=== PATIENT | male | born 1940 | race Caucasian/White ===

== ENCOUNTER 2019-04-30 15:14 | Outpatient (CLI) | payer MEDICARE, SELFPAY ==
[2019-04-30 15:41] LABS: Basophils Percent Auto 0.7 % (0.2-1.2); Eosinophils Absolute Auto 0.1 K/mm3 (0-0.3); Hematocrit 39.2 % (42.0-52.0); Immature Granulocyte Absolute 0.01 K/mm3 (0.00-0.031); Immature Granulocyte Percent A 0.3 % (0-0.5); Lymphocytes Absolute Auto 0.54 K/mm3 (0.9-3.2); Lymphocytes Percent Auto 17.9 % (18.3-44.2); Mean Corpuscular HGB Conc 35.7 g/dl (32-36); Mean Corpuscular Hemoglobin 32.5 pg (26-34); Mean Platelet Volume 8.2 fl (7.4-10.4); Monocytes Absolute Auto 0.4 K/mm3 (0.1-0.6); Monocytes Percent Auto 12.3 % (2.6-8.5); Neutrophils Percent Auto 65.8 % (45.5-73.1); Platelet Count Result 231 k/mm3 (150-375); Red Blood Count 4.31 M/mm3 (4.6-6.20); Red Cell Distribution Width 11.7 % (11.5-14.5)
[2019-04-30 16:49] LABS: Iron 103 ug/dL (49-181)
[2019-04-30 16:51] LABS: Alanine Aminotransferase 20 U/L (4-50); Albumin Level 4.4 g/dL (3.5-5.1); Alkaline Phosphatase 89 U/L (38-126); Aspartate Amino Transferase 26 U/L (17-59); Bilirubin,Total 0.5 mg/dL (0.2-1.3); Blood Urea Nitrogen 21 mg/dL (9-20); Calcium 9.4 mg/dL (8.4-10.2); Carbon Dioxide 30 mmol/L (22-30); Chloride 90 mmol/L (98-107); Estimated Glomerular Filt Rate > 60; Glucose 103 mg/dL (75-110); Potassium 4.8 mmol/L (3.4-5.0); Sodium 132 mmol/L (137-145)
[2019-04-30 16:59] LABS: Percent Iron Saturation 36 % (20-50)
[2019-04-30 17:57] LABS: Folic Acid 16.6 ng/mL (2.76->20)
[2019-05-04 21:06] LABS: Anti Nuclear Antibody Pattern Nuclear, Speckled
== END 2019-04-30 15:15 | disposition home or self-care (01) ==
PROVIDERS: PCP Internal Medicine; Visit Provider Internal Medicine Hematology & Oncology
DX: D72.819 Decreased white blood cell count, unspecified (principal); D50.9 Iron deficiency anemia, unspecified
CPT/HCPCS: 36415; 80053; 82607; 82728; 82746; 83540; 83550; 85025; 86038; 86039

== ENCOUNTER 2019-10-25 09:39 | Emergency (ER) | payer MEDICARE, SELFPAY ==
--- NOTE | ~2019-10-25 | XR_ITS ---
EXAMINATION: XR ribs RT 2V w CXR 2V DATE: 10/25/2019 11:03 INDICATION: Right posterior rib pain. TECHNIQUE: Frontal and lateral views of the chest and 3 views of the right ribs were obtained. COMPARISON: Chest single view 01/11/2015 FINDINGS: CHEST TWO VIEWS: A calcified left lung nodule is consistent with old granulomatous disease. No pleura l effusion or pneumothorax. The heart size is normal. RIGHT RIBS: There are multiple old healed right rib fractures. No acute rib fracture. IMPRESSION: 1. No acute rib fracture. Reviewed, dictated and finalized at location A. IMPRESSION: 1. No acute rib fracture.
[2019-10-25 10:01] VITALS: BP 205/94; PULSE 56; RESP 18; TEMP 36.6; O2SAT 99
--- NOTE | 2019-10-25 10:40 | ED.FALL ---
HPI - Fall General Chief Complaint: Fall <STAS Reyes Last Filed: 10/25/19 12:03> Stated Complaint: I think I fractured my ribs <STAS Reyes Last Filed: 10/25/19 12:03> Time Seen by Provider: 10/25/19 10:06 <STAS Reyes Last Filed: 10/25/19 12:03> Source: patient <STAS Reyes Last Filed: 10/25/19 12:03> Mode of arrival: ambulatory <STAS Reyes Last Filed: 10/25/19 12:03> Limitations: no limitations <STAS Reyes Last Filed: 10/25/19 12:03> History of Present Illness HPI Narrative: This is a 79-year-old male that presents the emergency department for right-sided rib pain after a fall last night. Reports he tripped over some logs and landed on his right side. Reports since he has been having rib pain. Pain is worse with movement and relieved with rest. Denies hitting his head, loss of consciousness, other injuries, or shortness of breath. <STAS Reyes Last Filed: 10/25/19 12:03> Related Data Home Medications: Home Medications Medication Instructions Recorded Confirmed levothyroxine DAILY 10/25/19 ropinirole mg HS 10/25/19 venlafaxine mg DAILY 10/25/19 <STAS Reyes Last Filed: 10/25/19 12:03> Allergies/Adverse Reactions: Allergies Allergy/AdvReac Type Severity Reaction Status Date / Time No Known Allergies Allergy Verified 10/25/19 11:20 <STAS Reyes Last Filed: 10/25/19 12:03> Review of Systems Review of Systems: Narrative: CONSTITUTIONAL: Denies fever CARDIOVASCULAR: Reports chest pain RESPIRATORY: Denies dyspnea. MUSCULOSKELETAL: Reports back pain and myalgia NEUROLOGIC: Denies numbness, or weakness. <STAS Reyes Last Filed: 10/25/19 12:03> All systems reviewed & are unremarkable except as noted in HPI and below <Ana Mckenzie PA-C - Last Filed: 10/25/19 12:03> PMFSH Past Medical History Medical History: Medical History (Updated 10/25/19 @ 12:03 by Ana Mckenzie PA-C) History of prostate cancer <Ana Mckenzie PA-C - Last Filed: 10/25/19 12:03> Surgical History Surgical History: Surgical History (Updated 10/25/19 @ 10:42 by Ana Mckenzie PA-C) History of tonsillectomy <Ana Mckenzie PA-C - Last Filed: 10/25/19 12:03> Exam Narrative: Exam Narrative: GENERAL: Well-appearing, well-nourished, and in no acute distress. HEAD: Normocephalic, atraumatic. EYES: PERRLA and EOMI. ENT: Nares clear, no rhinorrhea or epistaxis. Mucous membranes moist. Oropharynx without tonsillar hypertrophy exudate or other lesions. Bilateral TMs pearly purdy non-bulging NECK: Supple. No adenopathy or masses. No midline cervical spine tenderness CHEST: Clear to auscultation. No respiratory distress. No wheezes rales or rhonchi. Tender to palpation of the right lateral/posterior chest wall HEART: Regular rate and rhythm. No murmur heard. Normal peripheral pulses. BACK: No midline thoracic or lumbar spine tenderness EXTREMITIES: Normal range of motion. No edema. Strength equal in bilateral upper extremities (5/5) SKIN: Warm, dry, no rash. NEURO: No focal deficits. Alert and oriented x3. Cranial nerves II through XII grossly intact. Normal gait PSYCH: Normal mood and affect <Ana Mckenzie PA-C - Last Filed: 10/25/19 12:03> Course Vital Signs Vital signs: Vital Signs Temperature 97.8 F 10/25/19 10:01 Pulse Rate 56 L 10/25/19 10:01 Respiratory Rate 18 10/25/19 10:01 Blood Pressure 205/94 H 10/25/19 10:01 Pulse Oximetry 99 10/25/19 10:01 Temperature 97.8 F 10/25/19 10:01 Pulse Rate 66 10/25/19 12:30 Respiratory Rate 18 10/25/19 12:30 Blood Pressure 182/95 H 10/25/19 12:30 Pulse Oximetry 98 10/25/19 12:30 <Ana Mckenzie PA-C - Last Filed: 10/25/19 12:03> Vital Signs Temperature 97.8 F 10/25/19 10:01 Pulse Rate 56 L 10/25/19 10:01 Respiratory Rate
[2019-10-25] MEDS: hydrALAZINE HCL 20 MG/ML VIAL 10 MG IM (11:31)
[2019-10-25 11:33] VITALS: BP 170/104; PULSE 52; RESP 20; O2SAT 99
[2019-10-25 12:06] VITALS: BP 193/96; PULSE 64; RESP 18; O2SAT 95
[2019-10-25 12:30] VITALS: BP 182/95; PULSE 66; RESP 18; O2SAT 98
== END 2019-10-25 12:45 | disposition home or self-care (01) ==
PROVIDERS: Emergency Provider General Practice; PCP Internal Medicine
DX: S20.211A Contusion of right front wall of thorax, initial encounter (principal); I10 Essential (primary) hypertension; W18.09XA Striking against other object with subsequent fall, initial encounter; Z85.46 Personal history of malignant neoplasm of prostate
CPT/HCPCS: 71046; 71100; 96372; 99283; A9270; J0360

== ENCOUNTER → 2020-08-17 02:17 | Outpatient (CLI) | payer MEDICARE, SELFPAY ==
[2020-08-17 23:31] LABS: SARS-CoV-2 RNA PCR Negative
== END ==
PROVIDERS: PCP Internal Medicine; Visit Provider Internal Medicine Gastroenterology
DX: Z01.812 Encounter for preprocedural laboratory examination (principal); Z20.822 Contact with and (suspected) exposure to COVID-19
CPT/HCPCS: C9803; U0003; U0005

== ENCOUNTER 2020-08-20 01:53 | Day surgery (SDC) | payer MEDICARE, SELFPAY ==
[2020-08-13 10:21] VITALS: BMI 27.5
[2020-08-20 08:05] VITALS: BP 155/94; PULSE 62; RESP 16; TEMP 36.1; O2SAT 97; BMI 27.3
[2020-08-20] MEDS: LACTATED RINGERS 1,000 ML 150 ML IV CONT (08:16)
--- NOTE | 2020-08-20 08:40 | WPDANESEPPF ---
Anes - Initial Pre Proc Eval Procedure: Operation Date: 08/20/20 09:30 Proposed Procedures p Screening Colonoscopy - Allan Jon MD Date/Time: 08/20/20 08:40 Surgeon: Allan Jon MD Pre Op Diagnosis: neoplasm screening, hx colon polyps Patient Data Age: 80 Gender: M Height: 5 ft 1 in Weight: 65.5 kg Last Vital Signs Temp 96.9 F L 08/20/20 08:05 Pulse 62 08/20/20 08:05 Resp 16 08/20/20 08:05 BP 155/94 H 08/20/20 08:05 Pulse Ox 97 08/20/20 08:05 Allergies Allergy/AdvReac Type Severity Reaction Status Date / Time No Known Allergies Allergy Verified 08/20/20 08:03 Home Medications Medication Instructions Recorded Confirmed Type levothyroxine 25 mcg PO DAILY 10/25/19 08/20/20 History ropinirole 3 mg PO HS 10/25/19 08/20/20 History venlafaxine 37.5 mg PO DAILY 10/25/19 08/20/20 History amlodipine 10 mg PO DAILY 08/13/20 08/20/20 History hydrochlorothiazide 12.5 mg PO DAILY 08/13/20 08/20/20 History pravastatin 40 mg PO HS 08/13/20 08/20/20 History trazodone 100 mg PO HS 08/13/20 08/20/20 History Patient hx anesthesia problems: none Family hx anesthesia problems: none PMFSH Past Medical History Medical History (Updated 08/20/20 @ 08:40 by Tevin Rodriguez MD) History of prostate cancer Hyperlipidemia Hypertension Hypothyroid Surgical History Surgical History (Updated 10/25/19 @ 10:42 by Ana Mckenzie PA-C) History of tonsillectomy Social History Social History Smoking status: Never smoker Alcohol use details: rarely Living arrangements: alone Spiritual care concerns: No Anes - Eval Final PreProcedure Day of Procedure 08/20/20 08:40 Patient weight: normal Heart: regular rate and rhythm Lungs: clear to auscultation Airway: Mallampati scale class II Neurological: alert and oriented Last oral intake: >/= 8 hours ASA classification: III Emergent: no Anesthetic plan: proceed Anesthesia type and monitoring: general GIVS and standard monitoring Informed Consent: The patient's anesthetic plan and its attendant risks and benefits were discussed with the patient/family/POA. Questions were solicited and answers provided to the satisfaction of the patient/family/POA.
--- NOTE | 2020-08-20 08:55 | PM.HPGS ---
History of Present Illness History of Present Illness Consent: Risks, benefits, and alternatives have been discussed and questions answered. Patient agrees to proceed with procedure. Chief complaint: neoplasm screening, hx colon polyps Narrative: Kiran Martines Jr. is a 80 year old male with colon polyp ~ 3 years ago. Review of Systems Constitutional: Constitutional: Denies headache(s) and Denies weakness Eyes: Eyes: Denies blurry vision ENT: Reports Normal hearing present, Denies headache(s) and Denies neck pain Cardiovascular: Cardiovascular: Denies chest pain and Denies dyspnea Respiratory: Respiratory: Denies dyspnea Gastrointestinal: Gastrointestinal: Reports no additional gastrointestinal complaints Genitourinary: Genitourinary: Denies dysuria Musculoskeletal: Musculoskeletal: Denies neck pain Integumentary/Breasts: Skin/Breast: Denies dry skin Neurologic: Reports Normal hearing present, Denies headache(s) and Denies weakness Psychiatric: Psychiatric: Denies anxiety Endocrine: Endocrine: Denies change in body appearance Hematologic/Lymphatic: Hematologic/Lymphatic: Denies easy bleeding Allergic/Immunologic: Allergic/Immunologic: Denies urticaria PMFSH Past Medical History Medical History (Updated 08/20/20 @ 08:55 by Allan Jon MD) Colon polyp History of prostate cancer Hyperlipidemia Hypertension Hypothyroid Surgical History Surgical History (Updated 10/25/19 @ 10:42 by Ana Mckenzie PA-C) History of tonsillectomy Social History Social History Smoking status: Never smoker Alcohol use details: rarely Living arrangements: alone Spiritual care concerns: No Meds Home Medications and Allergies Home Medications Medication Instructions Recorded Confirmed Type levothyroxine 25 mcg PO DAILY 10/25/19 08/20/20 History ropinirole 3 mg PO HS 10/25/19 08/20/20 History venlafaxine 37.5 mg PO DAILY 10/25/19 08/20/20 History amlodipine 10 mg PO DAILY 08/13/20 08/20/20 History hydrochlorothiazide 12.5 mg PO DAILY 08/13/20 08/20/20 History pravastatin 40 mg PO HS 08/13/20 08/20/20 History trazodone 100 mg PO HS 08/13/20 08/20/20 History Allergies Allergy/AdvReac Type Severity Reaction Status Date / Time No Known Allergies Allergy Verified 08/20/20 08:03 Vital Signs Vital Signs - 24 hr 08/20/20 08:05 Temperature 96.9 F L Pulse Rate 62 Respiratory Rate 16 Blood Pressure 155/94 H Pulse Oximetry 97 Exam Const: General: comfortable and no acute distress HENMT: General nose exam: Normal nares present Eyes: General: appearance normal, both eyes and all related structures Neck: Neck: no JVD Resp: Auscultation: clear to auscultation bilaterally Cardio: Rate: regular rate Rhythm: regular rhythm GI: Inspection: non-distended GI Palp: Yes Soft to palpation Skin: General skin exam: normal color Neuro: General: gait normal Speech: normal speech Extrem: General: normal to inspection Psych: Mental Status: mental status grossly normal Assessment and Plan Assessment and plan (1) Colon polyp: Code(s): K63.5 - Polyp of colon Status: Acute Assessment and Plan: colonoscopy
[2020-08-20 09:24] VITALS: BP 107/67; PULSE 66; RESP 28; O2SAT 98
[2020-08-20 09:33] VITALS: BP 98/62; PULSE 52; RESP 28; O2SAT 98
[2020-08-20 09:43] VITALS: BP 133/92; PULSE 61; RESP 21; O2SAT 100
== END 2020-08-20 10:00 | disposition home or self-care (01) ==
PROVIDERS: PCP Internal Medicine; Visit Provider Internal Medicine Gastroenterology
PROC: 0DJD8ZZ Inspection of Lower Intestinal Tract, Via Natural or Artificial Opening Endoscopic (ICD-10-PCS; CPT 45378; principal; 2020-08-20 09:30)
DX: Z12.11 Encounter for screening for malignant neoplasm of colon (principal); Z86.010 Personal history of colon polyps; K57.30 Diverticulosis of large intestine without perforation or abscess without bleeding; K64.8 Other hemorrhoids; D12.3 Benign neoplasm of transverse colon; E78.5 Hyperlipidemia, unspecified; I10 Essential (primary) hypertension; E03.9 Hypothyroidism, unspecified
CPT/HCPCS: 45380; 88305; C9803; J2704; J7120; U0003; U0005

== ENCOUNTER 2021-11-22 10:56 | Outpatient (CLI) | payer MEDICARE, SELFPAY ==
[2021-11-22 11:27] LABS: Basophils Percent Auto 0.6 % (0.2-1.2); Eosinophils Absolute Auto 0.1 K/mm3 (0-0.3); Eosinophils Percent Auto 2.8 % (0-4.4); Hematocrit 45.6 % (42.0-52.0); Hemoglobin 15.5 g/dL (14.0-18.0); Immature Granulocyte Absolute 0.01 K/mm3 (0.00-0.031); Immature Granulocyte Percent A 0.2 % (0-0.5); Lymphocytes Absolute Auto 0.92 K/mm3 (0.9-3.2); Lymphocytes Percent Auto 19.5 % (18.3-44.2); Mean Corpuscular Hemoglobin 32.3 pg (26-34); Monocytes Absolute Auto 0.5 K/mm3 (0.1-0.6); Monocytes Percent Auto 11.3 % (2.6-8.5); Neutrophils Absolute Auto 3.1 K/mm3 (1.3-6.7); Neutrophils Percent Auto 65.6 % (45.5-73.1); Platelet Count Result 257 k/mm3 (150-375); Red Cell Distribution Width 11.9 % (11.5-14.5); White Blood Count 4.7 K/mm3 (4.5-10.0)
[2021-11-22 11:31] LABS: Blood Urea Nitrogen 17 mg/dL (8-26); Carbon Dioxide 29 mmol/L (22-30); Chloride 101 mmol/L (98-109); Estimated Glomerular Filt Rate > 60; Glucose 107 mg/dL (70-105); Ionized Calcium (POC) 1.19 mmol/L (1.11-1.31); Potassium 4.8 mmol/L (3.5-4.9); Sodium 137 mmol/L (138-146)
[2021-11-22 13:23] LABS: Alanine Aminotransferase 30 U/L (6-50); Albumin Level 4.4 g/dL (3.5-5.1); Alkaline Phosphatase 120 U/L (38-126); Anion Gap 9 mmol/L (8-16); Aspartate Amino Transferase 29 U/L (17-59); Bilirubin,Total 0.7 mg/dL (0.2-1.3); Blood Urea Nitrogen 18 mg/dL (9-20); Calcium 9.5 mg/dL (8.4-10.2); Carbon Dioxide 28 mmol/L (22-30); Chloride 100 mmol/L (98-107); Estimated Glomerular Filt Rate > 60; Glucose 109 mg/dL (65-110); Potassium 4.8 mmol/L (3.4-5.0); Sodium 137 mmol/L (137-145)
== END 2021-11-22 10:57 | disposition home or self-care (01) ==
PROVIDERS: PCP Internal Medicine; Visit Provider Internal Medicine Hematology & Oncology
DX: D72.819 Decreased white blood cell count, unspecified (principal)
CPT/HCPCS: 36415; 80047; 80053; 82607; 82746; 85025

== ENCOUNTER 2022-11-20 09:23 | Outpatient (CLI) | payer MEDICARE, SELFPAY ==
[2022-11-20 09:41] LABS: Basophils Percent Auto 0.8 % (0.2-1.2); Eosinophils Absolute Auto 0.2 K/mm3 (0-0.3); Eosinophils Percent Auto 4.1 % (0-4.4); Hematocrit 44.4 % (42.0-52.0); Hemoglobin 15.4 g/dL (14.0-18.0); Lymphocytes Absolute Auto 1.07 K/mm3 (0.9-3.2); Lymphocytes Percent Auto 27.6 % (18.3-44.2); Mean Corpuscular HGB Conc 34.7 g/dl (32-36); Mean Corpuscular Hemoglobin 32.8 pg (26-34); Mean Corpuscular Volume 94.7 fl (80-100); Mean Platelet Volume 8.7 fl (7.4-10.4); Monocytes Absolute Auto 0.4 K/mm3 (0.1-0.6); Neutrophils Absolute Auto 2.3 K/mm3 (1.3-6.7); Neutrophils Percent Auto 58.5 % (45.5-73.1); Platelet Count Result 254 k/mm3 (150-375); Red Blood Count 4.69 M/mm3 (4.6-6.20); White Blood Count 3.9 K/mm3 (4.5-10.0)
[2022-11-20 10:36] LABS: Anion Gap 5 mmol/L (8-16); Blood Urea Nitrogen 14 mg/dL (9-20); Calcium 8.8 mg/dL (8.4-10.2); Carbon Dioxide 30 mmol/L (22-30); Chloride 99 mmol/L (98-107); Estimated Glomerular Filt Rate > 60; Glucose 155 mg/dL (65-110); Potassium 4.5 mmol/L (3.4-5.0); Sodium 134 mmol/L (137-145)
== END 2022-11-20 09:24 | disposition home or self-care (01) ==
PROVIDERS: PCP Internal Medicine; Visit Provider Internal Medicine Hematology & Oncology
DX: D72.819 Decreased white blood cell count, unspecified (principal)
CPT/HCPCS: 36415; 80048; 85025

== ENCOUNTER 2024-04-02 11:54 | Outpatient (CLI) | payer MEDICARE, SELFPAY ==
[2024-04-02 12:20] LABS: Basophils Percent Auto 0.9 % (0.2-1.2); Eosinophils Absolute Auto 0.1 K/mm3 (0-0.3); Eosinophils Percent Auto 1.5 % (0-4.4); Hematocrit 44.9 % (42.0-52.0); Hemoglobin 15.7 g/dL (14.0-18.0); Immature Granulocyte Absolute 0.02 K/mm3 (0.00-0.031); Immature Granulocyte Percent A 0.4 % (0-0.5); Lymphocytes Absolute Auto 0.96 K/mm3 (0.9-3.2); Lymphocytes Percent Auto 20.6 % (18.3-44.2); Mean Corpuscular Hemoglobin 32.6 pg (26-34); Mean Corpuscular Volume 93.2 fl (80-100); Mean Platelet Volume 8.8 fl (7.4-10.4); Monocytes Absolute Auto 0.5 K/mm3 (0.1-0.6); Monocytes Percent Auto 11.1 % (2.6-8.5); Neutrophils Absolute Auto 3.1 K/mm3 (1.3-6.7); Neutrophils Percent Auto 65.5 % (45.5-73.1); Platelet Count Result 249 k/mm3 (150-375); Red Blood Count 4.82 M/mm3 (4.6-6.20); Red Cell Distribution Width 11.7 % (11.5-14.5); White Blood Count 4.7 K/mm3 (4.5-10.0)
[2024-04-02 13:44] LABS: Alanine Aminotransferase 23 U/L (6-50); Albumin Level 4.3 g/dL (3.5-5.1); Alkaline Phosphatase 94 U/L (38-126); Anion Gap 9 mmol/L (4-12); Aspartate Amino Transferase 29 U/L (17-59); Blood Urea Nitrogen 16 mg/dL (9-20); Calcium 9.1 mg/dL (8.4-10.2); Carbon Dioxide 27 mmol/L (22-30); Chloride 98 mmol/L (98-107); Cholesterol 172 mg/dL (0-200); Estimated Glomerular Filt Rate > 60; Glucose 106 mg/dL (65-110); HDL Direct 75 mg/dL; Potassium 4.6 mmol/L (3.4-5.0); Sodium 134 mmol/L (137-145); Triglycerides 123 mg/dL (<150)
[2024-04-02 13:49] LABS: MALB Creatinine Ratio 40.1 mg/g (0-30); Microalbumin Urine Random 30.5 mg/L (0-16.7)
[2024-04-02 13:55] LABS: LDL Cholesterol Direct 70 mg/dL
[2024-04-02 14:00] LABS: Free T4 Free Thyroxine 1.31 ng/dL (0.78-2.19)
[2024-04-02 14:15] LABS: Prostate Specific Antigen 0.1 ng/mL (< OR = 4.0)
[2024-04-02 16:14] LABS: Hemoglobin A1C 5.8 % (<5.7)
[2024-04-02 18:02] LABS: Folic Acid 18.4 ng/mL (2.76->20)
--- OUTSIDE RECORDS SUMMARY | 2024-04-04 00:10 | XMS_ITS | CONTINUITY OF CARE DOCUMENT ---
Author Name polo, polo Address Unknown Organization [facility] Address [address] [place] [address] Phone [phone] Care Team Providers Care Vp Informatics Name Role Phone Elbert MANRIQUE, Sheri Unavailable DANNY YANES MD Unavailable DANNY YANES MD Unavailable PROBLEMS Condition Status Date Provider Notes LEG PAIN active Sheri Boswell MD ABNORMAL ELECTROCARDIOGRAM active Sheri clay MD HTN ESSENTIAL active Sheri Boswell MD ENCOUNTERS Date Type Provider Location Encounter Diag nosis - In-person encounter Office Visit Sheri Boswell MD [facility] HTN ESSENTIALABNORMAL ELECTROCARDIOGRAMLEG PAIN VITAL SIGNS Date Observation Value Provider blood pressure, diastolic 83 mm[Hg] Melchor blood pressure, systolic 141 mm[Hg] Anson Guallpa pulse rate 59 /min Dell Guallpa oxygen saturation, oximetry 95 % Dell Guallpa respiratory rate E&M 16 /min Dell Guallpa weight E&M 154 [lb_av] Dell Guallpa ALLERGIES No Known Drug Allergies HISTORY OF MEDICATION USE Medication Status Instructions Dates Provider Indications Com ments REQUIP 2 MG ORAL TABLET active 1 tab at bedtime Dell Guallpa TAMSULOSIN HCL 0.4 MG ORAL CAPSULE active 1 tab at bedtime Dell Guallpa DONEPEZIL HCL 10 MG ORAL TABLET active 1 tab daily Dell Guallpa GABAPENTIN 300 MG ORAL CAPSULE active 2 tab at bedtime Dell Guallpa SOCIAL HISTORY Date Observation Value Provider social history E&M Marital Statu s: E thnicity: Sheri Boswell MD drug use none Sheri Boswell MD social history reviewed E&M reviewed Sheri Boswell MD physical exercise, f requency, days per week yes [employer] caffeine use, averag e drinks per day yes [employer] alcohol use, average drinks per day social basis only [employer] smoking status Non-smoker [employer] MENTAL STATUS Date Observation Value Provider assessment of judgme nt and insight E&M Alert and oriented to time, place and person. Mood and affect are normal. Sheri Boswell MD INSURANCE PROVIDERS Payer name Policy type / Coverage type [place] [employer] Commercial insurance company [id number] [place] [employer] Medicare [id number] TREATMENT PLAN Date Name Performer new pt.: O rders: E KG ([id number]) BP today: 141/83 Sheri Boswell MD HISTORY OF PROCEDURES Procedure Date Procedure Name Provider Procedure Notes S tatus EKG Sheri Boswell MD completed
--- OUTSIDE RECORDS SUMMARY | 2024-04-04 00:10 | XMS_ITS | Data Portability ---
Author Organization [facility], Main Office Address [address] [place] [address] Care Team Providers Care [employer] Manager Name Role Phone LEE GRAHAM Primary Care Provider [phone] LEE GRAHAM Referring Provider [phone] BRETT NOGUERA Hematology/Oncology [phone] JONATHAN ALARCON Head Machinist [phone] MAYTE Sanforizing Machine Operator RITA BARBER Urologist Assessment Encounter Date Assessment Date Assessment LastModified by Organization Details LastModified Time 02/28/2023 02/28/2023 05/22/2022: Dr Stokes PSA 08/21/2022: Gluc 185 WBC 3.6L 12/04/2022: A1C 5.4 02/21/2023: Gluc 152 TG [email or web address] 02/28/2023 14:05:39 09/05/2023 09/05/2023 05/22/2022: Dr Stokes PSA 08/21/2022: Gluc 185 WBC 3.6L 12/04/2022: A1C 5.4 02/21/2023: Gluc 152 TG 167 08/29/2023: Gluc 110, glob 2.4, TP WNL Lipids/CBC: WNL Not available 09/05/2023 14:10:37 12/05/2023 12/05/2023 05/22/2022: Dr Stokes PSA 08/21/2022: Gluc 185 WBC 3.6L 12/04/2022: A1C 5.4 02/21/2023: Gluc 152 TG 167 08/29/2023: Gluc 110, glob 2.4, TP WNL Lipids/CBC: WNL 11/27/2023: PSA 0.21 Gluc 111, BUN 20 TG 162 WBC 3.9 [email or web address] Not available 12/04/2023 18:55:19 Plan of Treatment Reminders Order Date Submit Date Provider Last Modified By Organization Details Last Modified Time Details Appointments Any 15 2024 10:45A M Lee whitten MD Not available Not available Not available Lab lipid panel, serum 2022 023 [facility], [address] [place], [address], 08/29/2023 15:48:07 CMP, serum or plasma 2022 023 [facility], [address] [place], [address], 08/29/2023 15:48:13 TSH, serum or plasma 2022 023 [facility], [address] [place], [address], 08/29/2023 16:11:53 CBC w/ auto diff 2022 023 [facility], [address] [place], [address], 08/29/2023 13:15:44 T4, free, serum 2022 023 [facility], [address] [place], [address], 08/29/2023 16:01:18 microalbu min, urine 2023 024 [facility], [address] [place], [address], 09/11/2023 20:13:50 glycohemo globin, total, blood 2023 024 [facility], [address] [place], [address], 09/11/2023 21:26:15 PSA, serum or plasma [address], [address] [place], [address], 03/13/2024 08:58:08 lipid panel, serum 2023 024 [facility], [address] [place], [address], 11/27/2023 14:31:52 CMP, serum or plasma 2023 024 [facility], [address] [place], [address], 11/27/2023 14:32:04 TSH, serum or plasma 2023 024 [facility], [address] [place], [address], 11/28/2023 12:30:06 CBC w/ auto diff 2023 024 [facility], [address] [place], [address], 11/27/2023 13:19:36 T4, free, serum 2023 024 [facility], [address] [place], [address], 11/27/2023 14:52:18 lipid panel, serum [address], [address] [place], [address], 12/05/2023 14:37:20 CMP, serum or plasma [address], [address] [place], [address], 12/05/2023 14:37:20 TSH, serum or plasma 2023 024 [email or web address] [facility], [address] [place], [address], 12/05/2023 14:37:20 CBC w/ auto diff 2023 024 [facility], [address] [place], [address], 04/02/2024 16:03:45 T4, free, serum 2023 024 [email or web address] [facility], [address] [place], [address], 12/05/2023 14:37:21 microalbu min, urine 2023 024 [email or web address] [facility], [address] [place], [address], 01/02/2024 08:23:14 glycohemo globin, total, blood 2023 024 [facility], [address] [place], [address], 04/02/2024 23:34:43 Referral hematolog ist referral 2022 023 [email or web address] Brett Noguera, [address], [place], [address], 08/27/2023 08:12:18 podiatris t referral 2023 024 [email or web address] Da FORDEM, [address] [facility], [address], [place], [address], 10/08/2023 16:16:48 urologist referral 2023 024 VALERY Barber, [address] [facility], [facility] [address], [place], [address], 10/05/2023 17:18:41 hematolog ist referral 2023 024 Brett Ngouera, [address], [place], [address], 03/10/2024 16:21:54 podiatris t referral 2023 024 [email or web address] Da Gonzalez DPM, [address] [facility], [address], [place], [address], 01/02/2024 08:23:46 urologist referral 2023 024 [email or web address] Rita Barber, [address] [facility], [facility] [address], [place], [address], 01/02/2024 08:23:46 hematolog ist referral 2023 024 [email or web address] Brett Noguera, [address], [place], [address], 12/05/2023 14:42:56 Procedures upper endoscopy procedure (EGD) (PROC) 2023 024 [email or web address] Sunny Silverio MD, [address] [facility] [address], [address], [place], [address], 01/02/2024 08:44:14 Surgeries None recorded. Imaging None recorded. Medication Orders omeprazol e 20 mg capsule,d elayed release 2023 024 [facility] [address] [place], [address], 12/05/2023 14:36:49 Patient TargetsNo targets recorded. Patient Instructions Encounter Date Encounter Id Patient Instructions Last Modified By Organization Details Last Modified Time 09/05/2023 [id number] diabetic eye exam* [email or web address] Not avail able 03/06/2024 10:14:53 Personalized a [facility] Plan and Screening Recommendations Advance Directives - Do you have one? Advance Directives - Do we have your advance directive on file in your health record? Primary Prevention/Interven tion (prevents or decreases the chance of common diseases from occurring) Smoking Risk: Alcohol Misuse Screening: Weight: Physical activity: Nutrition: Fall Risk (screened today): Vaccines Pneumococcal: Influenza: Chronic Disease Risks Stroke: I have no recommendations Active diagnosis, Continue current treatment plan Heart Attack: I have no recommendations Act alma diagnosis, Continue current treatment plan Clogging of the Arteries: I have no recommendations Act alma diagnosis, Continue current treatment plan Diabetes: Secondary Prevention/Interven tion (detects treatable diseases before they may cause symptoms, disability, or ) Prostate Cancer Screening: Colon Cancer Screening: Date Screening Last Performed: Eye Disease Screening: Dementia Risk: Depression Screening: [email or web address] Not available 09/04/2023 10:08:06 10/05/2023 [id number] plan 1. I told him he could try soy tablets for his hot flashes but I did offer him low-dose testosterone replacement but he was not interested in doing injections 2. I will see him back in 6 months just for another PSA and we will follow him maybe another 1 or 2 years if everything stays normal he probably does not need much follow up after that but maybe once a year [email or web address] Not available 10/05/2023 16:49:02 12/05/2023 [id number] dementia rating scale-2* [email or web address] Not available 12/05/2023 14:36:42 alcohol misuse* [email or web address] Not available 12/05/2023 14:36:42 depression screening* [email or web address] Not available 12/05/2023 14:36:42 Timed Up and Go test (TUG)* [email or web address] Not available 12/05/2023 14:36:41 multi-dimensiona l health assessment questionnaire* [email or web address] Not available 12/05/2023 14:36:42 advance care planning: care instructions [email or web address] Not available 12/05/2023 14:36:41 advance directiv es: care instructions [email or web address] Not available 12/05/2023 14:36:41 [place] Advance Directives [email or web address] Not available 12/05/2023 14:36:42 diabetic eye exam* [email or web address] Not availa ble 12/05/2023 14:37:34 Personalized Hea lth Plan and Screening Recommendations Advance Directives - Do you have one? You have indicated that you are capable of preparing your advance care directive Advance Directives - Do we have your advance directive on file in your health record? Primary Prevention/Interven tion (prevents or decreases the chance of common diseases from occurring) Smoking Risk: Non Smoker Alcohol Misuse Screening: Negative Weight: Appropriate Overwei ght continue your current weight loss efforts try to lose 5% of your body weight try to lose 10% of your body weight Physical activity: Nutrition: Good Average Refer to attached handout Heart-Healthy Diet: After Your Visit Fall Risk (screened today): Low Intermediate Refer to attached handout Preventing Falls: After your Visit Vaccines Pneumococcal: Ordered Recommended today Recommended today, but you have declined No further needed Influenza: Chronic Disease Risks Stroke: Low Risk Intermediate Risk Heart Attack: Low risk Intermediate Risk Clogging of the Arteries: Low risk Intermediate Risk Diabetes: Low Risk I have no recommendations Secondary Prevention/Interven tion (detects treatable diseases before they may cause symptoms, disability, or ) Prostate Cancer Screening: Colon Cancer Screening: Date Screening Last Performed:2020 Eye Disease Screening: Ordered Recommended today Dementia Risk: Low Intermediate I have no recommendations Depression Screening: Negative Not available 12/05/2023 14:40:49 Reason for Referral Referring Physician: Lee Graham [facility], Encounter Date: 02/28/2023 Referring Physician: Lee Graham [facility], Encounter Date: 09/05/2023 Urologist Referral for Prost ate specific antigen above reference range Referring Physician: Lee Graham [facility], Encounter Date: 09/05/2023 Head Machinist Referral for Hype rglycemia Referring Physician: Lee Graham [facility], Encounter Date: 09/05/2023 Referring Physician: Lee Graham [facility], Encounter Date: 12/05/2023 Urologist Referral for Prost ate specific antigen above reference range Referring Physician: Lee Graham [facility], Encounter Date: 12/05/2023 Head Machinist Referral for Hype rglycemia Referring Physician: Lee Graham, Internal Medicine, Encounter Date: 12/05/2023 Results Created Date Observation Date Name Description Value Unit Range Abnormal Flag Note LastModifiedBy Organization Detail LastModifiedTime 02/22/2002/21/2023 CBC/C OMPLE TE BLD COUNT W/DIF F white blood cells 4.5 x10'3 /uL 4.2-10 .8 Not Available [facility] (Lab) [address] [place], [address], 02/21/2023 13:01:16 02/22/2002/21/2023 CBC/C OMPLE TE BLD COUNT W/DIF F red blood cells 4.85 x10'6 /uL 4.10-5 .80 Not Available [facility] (Lab) [address] [place], [address], 02/21/2023 13:01:16 02/22/2002/21/2023 CBC/C OMPLE TE BLD COUNT W/DIF F hemoglobin 16.2 g/dL 13.2-1 7.0 Not Available [facility] (Lab) [address] [place], [address], 02/21/2023 13:01:16 02/22/2002/21/2023 CBC/C OMPLE TE BLD COUNT W/DIF F hematocrit 46.7 % 39.3-5 0.0 Not Available [facility] (Lab) [address] [place], [address], 02/21/2023 13:01:16 02/22/2002/21/2023 CBC/C OMPLE TE BLD COUNT W/DIF F mean red cell volume 96.3 fL 80.0-9 7.0 Not Available [facility] (Lab) [address] [place], [address], 02/21/2023 13:01:16 02/22/20 02/21/2023 CBC/C OMPLE TE BLD COUNT W/DIF F mean red cell hemoglobin 33.4 pg 27.0-3 3.0 high Not Available [facility] (Lab) [address] [place], [address], 02/21/2023 13:01:16 02/22/20 23 02/21/2023 CBC/C OMPLE TE BLD COUNT W/DIF F mean RBC HGB concentratio n 34.7 g/dL 31.0-3 6.0 Not Available [facility] (Lab) [address] [place], [address], 02/21/2023 13:01:16 02/22/2002/21/2023 CBC/C OMPLE TE BLD COUNT W/DIF F red cell distribution width 12.1 % 11.8-1 5.5 Not Available [facility] (Lab) [address] [place], [address], 02/21/2023 13:01:16 02/22/20 23 02/21/2023 CBC/C OMPLE TE BLD COUNT W/DIF F platelets 252 x10'3 /uL 150-40 0 Not Available [facility] (Lab) [address] [place], [address], 02/21/2023 13:01:16 02/22/20 23 02/21/2023 CBC/C OMPLE TE BLD COUNT W/DIF F mean platelet volume 9.8 fL 9.0-12 .4 Not Available [facility] (Lab) [address] [place], [address], 02/21/2023 13:01:16 02/22/20 23 02/21/2023 CBC/C OMPLE TE BLD COUNT W/DIF F neutrophils 56.7 % 39.0-7 2.0 Not Available [facility] (Lab) [address] [place], [address], 02/21/2023 13:01:16 02/22/20 23 02/21/2023 CBC/C OMPLE TE BLD COUNT W/DIF F lymphocytes 29.8 % 16.0-4 7.0 Not Available [facility] (Lab) [address] [place], [address], 02/21/2023 13:01:16 02/22/2002/21/2023 CBC/C OMPLE TE BLD COUNT W/DIF F monocytes 9.2 % 5.0-12 .0 Not Available [facility] (Lab) [address] [place], [address], 02/21/2023 13:01:16 02/22/2002/21/2023 CBC/C OMPLE TE BLD COUNT W/DIF F eosinophils 3.4 % 1.0-7. 0 Not Available [facility] (Lab) [address] [place], [address], 02/21/2023 13:01:16 02/22/2002/21/2023 CBC/C OMPLE TE BLD COUNT W/DIF F basophils 0.7 % 0.0-2. 0 Not Available [facility] (Lab) [address] [place], [address], 02/21/2023 13:01:16 02/22/2002/21/2023 CBC/C OMPLE TE BLD COUNT W/DIF F immature granulocytes 0.2 % 0.00-0 .50 Not Available [facility] (Lab) [address] [place], [address], 02/21/2023 13:01:16 02/22/2002/21/2023 CBC/C OMPLE TE BLD COUNT W/DIF F neutrophils, absolute count 2.53 x10'3 /uL 1.5-8. 0 Not Available [facility] (Lab) [address] [place] [address], [address], 02/21/2023 13:01:16 02/22/20 23 02/21/2023 CBC/C OMPLE TE BLD COUNT W/DIF F lymphocytes, absolute count 1.33 x10'3 /uL 1.07-3 .43 Not Available [facility] (Lab) [address] [place], [address], 02/21/2023 13:01:16 02/22/2002/21/2023 CBC/C OMPLE TE BLD COUNT W/DIF F monocytes, absolute count 0.41 x10'3 /uL 0.29-0 .99 Not Available [facility] (Lab) [address] [place], [address], 02/21/2023 13:01:16 02/22/2002/21/2023 CBC/C OMPLE TE BLD COUNT W/DIF F eosinophils, absolute count 0.15 x10'3 /uL 0.02-0 .53 Not Available [facility] (Lab) [address] [place], [address], 02/21/2023 13:01:16 02/22/2002/21/2023 CBC/C OMPLE TE BLD COUNT W/DIF F basophils, absolute count 0.03 x10'3 /uL 0.01-0 .08 Not Available [facility] (Lab) [address] [place], [address], 02/21/2023 13:01:16 02/22/2002/21/2023 CBC/C OMPLE TE BLD COUNT W/DIF F immature granulocytes ,absolute 0.01 x10'3 /uL 0.00-0 .05 Not Available [facility] (Lab) [address] [place], [address], 02/21/2023 13:01:16 02/22/20 23 02/21/2023 CBC/C OMPLE TE BLD COUNT W/DIF F nucleated red blood cells 0.0 % -0 Not Available [facility] (Lab) [address] [place], [address], 02/21/2023 13:01:16 02/22/2002/21/2023 CBC/C OMPLE TE BLD COUNT W/DIF F NRBC# 0.00 x10'3 /uL Not Available [facility] (Lab) [address] [place], [address], 02/21/2023 13:01:16 02/22/2002/21/2023 LIPID PANEL cholesterol 160 mg/dL 140-19 9 NIH BISMARK NSUS RECOM MENDA TION FOR STANFORD STERO L: ADULT CHILD LOW RISK: <200 <170 BORDE RLINE : <200- 239 ----- HIGH RISK: >240 >200 Not Available [facility] (Lab) [address] [place], [address], 02/21/2023 13:19:04 02/22/2002/21/2023 LIPID PANEL triglyceride s 167 mg/dL 0-150 high NIH BISMARK NSUS REPOR T RECOM MENDA TION FOR TRIGL YCERI PELON: ADULT CHILD LOW RISK: <150 ----- BODER LINE: 150-1 99 ----- HIGH RISK: >200 ----- Not Available [facility] (Lab) [address] [place], [address], 02/21/2023 13:19:04 02/22/2002/21/2023 LIPID PANEL HDL cholesterol 74 mg/dL 40- Not Available [facility] (Lab) [address] [place], [address], 02/21/2023 13:19:04 02/22/2002/21/2023 LIPID PANEL LDL cholesterol, calculated 53 mg/dL 0-130 NIH BISMARK NSUS REPOR T RECOM MENDA TIONS FOR LDL: ADULT CHILD LOW RISK <130 <110 (OPTI MAL LDL) <100 ----- BORDE RLINE : 130-1 59 ----- HIGH RISK: >160 >130 A TRIGL YCERI DE RESUL T >400 INVAL IDATE S THE CALCU LATIO N FOR LDL FRACT IONAT ION - THE LDL RESUL T WILL NOT BE REPOR TAISHA. Not Available [facility] (Lab) [address] [place], [address], 02/21/2023 13:19:04 02/22/2002/21/2023 COMPR EHENS ALMA METAB OLIC PANEL sodium 138 mmol/ L 137-14 5 Not Available [facility] (Lab) [address] [place], [address], 02/21/2023 13:19:09 02/22/2002/21/2023 COMPR EHENS ALMA METAB OLIC PANEL potassium 4.4 mmol/ L 3.5-5. 1 Not Available [facility] (Lab) [address] [place], [address], 02/21/2023 13:19:09 02/22/2002/21/2023 COMPR EHENS ALMA METAB OLIC PANEL chloride 101 mmol/ L 98-107 Not Available [facility] (Lab) [address] [place], [address], 02/21/2023 13:19:09 02/22/2002/21/2023 COMPR EHENS ALMA METAB OLIC PANEL carbon dioxide 30 mmol/ L 22-30 Not Available [facility] (Lab) [address] [place], [address], 02/21/2023 13:19:09 02/22/2002/21/2023 COMPR EHENS ALMA METAB OLIC PANEL anion gap 11.4 mmol/ L 14-22 low Not Available [facility] (Lab) [address] [place], [address], 02/21/2023 13:19:09 02/22/2002/21/2023 COMPR EHENS ALMA METAB OLIC PANEL glucose 152 mg/dL 70-99 high Not Available [facility] (Lab) [address] [place], [address], 02/21/2023 13:19:09 02/22/20 23 02/21/2023 COMPR EHENS ALMA METAB OLIC PANEL BUN 14 mg/dL 8-19 Not Available [facility] (Lab) [address] [place], [address], 02/21/2023 13:19:09 02/22/20 23 02/21/2023 COMPR EHENS ALMA METAB OLIC PANEL creatinine 0.87 mg/dL 0.66-1 .25 Not Available [facility] (Lab) [address] [place], [address], 02/21/2023 13:19:09 02/22/2002/21/2023 COMPR EHENS ALMA METAB OLIC PANEL GFR >60 Refer ence Range : [place] ge GFR Healt hy Adult : >60 mL/mi n/1.7 3 m2 Chron ic Kidne y Disea se: 15-60 mL/mi n/1.7 3 m2 Kidne y Failu re: <15/m L/min /1.73 m2 www.n iddk. nih.g ov The MDRD study equat ion has not been valid ated in child rose <18 years of age; pregn ant women ; the elder ly >85 years of age; or in some racia l or ethni c subgr oups, such as [facility] nics. Outsi de the valid ated lynne eters , estim ated GFR is less accur ate, requi ring clini cindy judgm ent on a case- by-ca se basis . Clini cindy inter preta tion for other races and ages must be made by the clini polo. The MDRD study equat ion has not been valid ated for the evalu ation of serum creat inine relat ed to nutri aashish l statu s or medic ation usage . For perso ns <18 years of age, a pedia tric GFR calcu lator is avail able on the F websi te: https ://rojas foster.shantell gregg/pr ofess ional s/kdo qi/gf r_cal culat or Not Available [facility] (Lab) [address] [place], [address], 02/21/2023 13:19:09 02/22/20 23 02/21/2023 COMPR EHENS ALMA METAB OLIC PANEL alkaline phosphatase 88 U/L 38-126 Not Available [facility] (Lab) [address] [place], [address], 02/21/2023 13:19:09 02/22/2002/21/2023 COMPR EHENS ALMA METAB OLIC PANEL alanine aminotransfe rase 24 U/L 0-50 Not Available [facility] (Lab) [address] [place], [address], 02/21/2023 13:19:09 02/22/20 23 02/21/2023 COMPR EHENS ALMA METAB OLIC PANEL aspartate aminotransfe rase 28 U/L 15-46 Not Available [facility] (Lab) [address] [place], [address], 02/21/2023 13:19:09 02/22/2002/21/2023 COMPR EHENS ALMA METAB OLIC PANEL bilirubin, total 0.80 mg/dL 0.20-1 .30 Not Available [facility] (Lab) [address] [place], [address], 02/21/2023 13:19:09 02/22/2002/21/2023 COMPR EHENS ALMA METAB OLIC PANEL calcium 9.5 mg/dL 8.4-10 .2 Not Available [facility] (Lab) [address] [place], [address], 02/21/2023 13:19:09 02/22/20 23 02/21/2023 COMPR EHENS ALMA METAB OLIC PANEL total protein 6.7 g/dL 6.3-8. 2 Not Available [facility] (Lab) [address] [place], [address], 02/21/2023 13:19:09 02/22/20 23 02/21/2023 COMPR EHENS ALMA METAB OLIC PANEL albumin 4.1 g/dL 3.0-4. 4 Not Available [facility] (Lab) [address] [place], [address], 02/21/2023 13:19:09 02/22/20 23 02/21/2023 COMPR EHENS ALMA METAB OLIC PANEL globulin 2.6 g/dL 2.6-4. 2 Not Available [facility] (Lab) [address] [place], [address], 02/21/2023 13:19:09 02/22/2002/21/2023 COMPR EHENS ALMA METAB OLIC PANEL A/G ratio 1.6 ratio 1.0-2. 0 Not Available [facility] (Lab) [address] [place], [address], 02/21/2023 13:19:09 02/22/20 23 02/21/2023 T4 FREE free T4 1.29 NG/dL 0.78-2 .19 Not Available [facility] (Lab) [address] [place], [address], 02/21/2023 14:19:36 02/22/2002/21/2023 TSH thyroid-stim ulating hormone 0.969 uIU/m L 0.465- 4.680 Not Available [facility] (Lab) [address] [place], [address], 02/21/2023 14:21:56 08/29/19 24 08/29/2023 CBC/C OMPLE TE BLD COUNT W/DIF F white blood cells 4.5 x10'3 /uL 4.2-10 .8 Not Available [facility] (Lab) [address] [place], [address], 08/29/2023 13:15:44 08/29/19 24 08/29/2023 CBC/C OMPLE TE BLD COUNT W/DIF F red blood cells 4.93 x10'6 /uL 4.10-5 .80 Not Available [facility] (Lab) [address] [place], [address], 08/29/2023 13:15:44 08/29/19 24 08/29/2023 CBC/C OMPLE TE BLD COUNT W/DIF F hemoglobin 16.3 g/dL 13.2-1 7.0 Not Available [facility] (Lab) [address] [place], [address], 08/29/2023 13:15:44 08/29/19 24 08/29/2023 CBC/C OMPLE TE BLD COUNT W/DIF F hematocrit 46.4 % 39.3-5 0.0 Not Available [facility] (Lab) [address] [place], [address], 08/29/2023 13:15:44 08/29/19 24 08/29/2023 CBC/C OMPLE TE BLD COUNT W/DIF F mean red cell volume 94.1 fL 80.0-9 7.0 Not Available [facility] (Lab) [address] [place], [address], 08/29/2023 13:15:44 08/29/19 24 08/29/2023 CBC/C OMPLE TE BLD COUNT W/DIF F mean red cell hemoglobin 33.1 pg 27.0-3 3.0 high Not Available [facility] (Lab) [address] [place], [address], 08/29/2023 13:15:44 08/29/19 24 08/29/2023 CBC/C OMPLE TE BLD COUNT W/DIF F mean RBC HGB concentratio n 35.1 g/dL 31.0-3 6.0 Not Available [facility] (Lab) [address] [place], [address], 08/29/2023 13:15:44 08/29/19 24 08/29/2023 CBC/C OMPLE TE BLD COUNT W/DIF F red cell distribution width 12.3 % 11.8-1 5.5 Not Available [facility] (Lab) [address] [place], [address], 08/29/2023 13:15:44 08/29/19 24 08/29/2023 CBC/C OMPLE TE BLD COUNT W/DIF F platelets 239 x10'3 /uL 150-40 0 Not Available [facility] (Lab) [address] [place], [address], 08/29/2023 13:15:44 08/29/19 24 08/29/2023 CBC/C OMPLE TE BLD COUNT W/DIF F mean platelet volume 9.9 fL 9.0-12 .4 Not Available [facility] (Lab) [address] [place], [address], 08/29/2023 13:15:44 08/29/19 24 08/29/2023 CBC/C OMPLE TE BLD COUNT W/DIF F neutrophils 65.1 % 39.0-7 2.0 Not Available [facility] (Lab) [address] [place], [address], 08/29/2023 13:15:44 08/29/19 24 08/29/2023 CBC/C OMPLE TE BLD COUNT W/DIF F lymphocytes 22.9 % 16.0-4 7.0 Not Available [facility] (Lab) [address] [place], [address], 08/29/2023 13:15:44 08/29/19 24 08/29/2023 CBC/C OMPLE TE BLD COUNT W/DIF F monocytes 8.0 % 5.0-12 .0 Not Available [facility] (Lab) [address] [place], [address], 08/29/2023 13:15:44 08/29/19 24 08/29/2023 CBC/C OMPLE TE BLD COUNT W/DIF F eosinophils 3.1 % 1.0-7. 0 Not Available [facility] (Lab) [address] [place], [address], 08/29/2023 13:15:44 08/29/19 24 08/29/2023 CBC/C OMPLE TE BLD COUNT W/DIF F basophils 0.7 % 0.0-2. 0 Not Available [facility] (Lab) [address] [place], [address], 08/29/2023 13:15:44 08/29/19 24 08/29/2023 CBC/C OMPLE TE BLD COUNT W/DIF F immature granulocytes 0.2 % 0.00-0 .50 Not Available [facility] (Lab) [address] [place], [address], 08/29/2023 13:15:44 08/29/19 24 08/29/2023 CBC/C OMPLE TE BLD COUNT W/DIF F neutrophils, absolute count 2.92 x10'3 /uL 1.5-8. 0 Not Available [facility] (Lab) [address] [place], [address], 08/29/2023 13:15:44 08/29/19 24 08/29/2023 CBC/C OMPLE TE BLD COUNT W/DIF F lymphocytes, absolute count 1.03 x10'3 /uL 1.07-3 .43 low Not Available [facility] (Lab) [address] [place], [address], 08/29/2023 13:15:44 08/29/19 24 08/29/2023 CBC/C OMPLE TE BLD COUNT W/DIF F monocytes, absolute count 0.36 x10'3 /uL 0.29-0 .99 Not Available [facility] (Lab) [address] [place], [address], 08/29/2023 13:15:44 08/29/19 24 08/29/2023 CBC/C OMPLE TE BLD COUNT W/DIF F eosinophils, absolute count 0.14 x10'3 /uL 0.02-0 .53 Not Available [facility] (Lab) [address] [place], [address], 08/29/2023 13:15:44 08/29/19 24 08/29/2023 CBC/C OMPLE TE BLD COUNT W/DIF F basophils, absolute count 0.03 x10'3 /uL 0.01-0 .08 Not Available [facility] (Lab) [address] [place], [address], 08/29/2023 13:15:44 08/29/19 24 08/29/2023 CBC/C OMPLE TE BLD COUNT W/DIF F immature granulocytes ,absolute 0.01 x10'3 /uL 0.00-0 .05 Not Available [facility] (Lab) [address] [place], [address], 08/29/2023 13:15:44 08/29/19 24 08/29/2023 CBC/C OMPLE TE BLD COUNT W/DIF F nucleated red blood cells 0.0 % -0 Not Available [facility] (Lab) [address] [place], [address], 08/29/2023 13:15:44 08/29/19 24 08/29/2023 CBC/C OMPLE TE BLD COUNT W/DIF F NRBC# 0.00 x10'3 /uL Not Available [facility] (Lab) [address] [place], [address], 08/29/2023 13:15:44 08/29/19 24 08/29/2023 LIPID PANEL cholesterol 172 mg/dL 140-19 9 NIH BISMARK NSUS RECOM MENDA TION FOR STANFORD STERO L: ADULT CHILD LOW RISK: <200 <170 BORDE RLINE : <200- 239 ----- HIGH RISK: >240 >200 Not Available [facility] (Lab) [address] [place], [address], 08/29/2023 15:48:07 08/29/19 24 08/29/2023 LIPID PANEL triglyceride s 117 mg/dL 0-150 NIH BISMARK NSUS REPOR T RECOM MENDA TION FOR TRIGL YCERI PELON: ADULT CHILD LOW RISK: <150 ----- BODER LINE: 150-1 99 ----- HIGH RISK: >200 ----- Not Available [facility] (Lab) [address] [place], [address], 08/29/2023 15:48:07 08/29/19 24 08/29/2023 LIPID PANEL HDL cholesterol 75 mg/dL 40- Not Available [facility] (Lab) [address] [place], [address], 08/29/2023 15:48:07 08/29/19 24 08/29/2023 LIPID PANEL LDL cholesterol, calculated 74 mg/dL 0-130 NIH BISMARK NSUS REPOR T RECOM MENDA TIONS FOR LDL: ADULT CHILD LOW RISK <130 <110 (OPTI MAL LDL) <100 ----- BORDE RLINE : 130-1 59 ----- HIGH RISK: >160 >130 A TRIGL YCERI DE RESUL T >400 INVAL IDATE S THE CALCU LATIO N FOR LDL FRACT IONAT ION - THE LDL RESUL T WILL NOT BE REPOR TAISHA. Not Available [facility] (Lab) [address] [place], [address], 08/29/2023 15:48:07 08/29/19 24 08/29/2023 COMPR EHENS ALMA METAB OLIC PANEL sodium 134 mmol/ L 137-14 5 low Not Available [facility] (Lab) [address] [place], [address], 08/29/2023 15:48:13 08/29/19 24 08/29/2023 COMPR EHENS ALMA METAB OLIC PANEL potassium 4.5 mmol/ L 3.5-5. 1 Not Available [facility] (Lab) [address] [place], [address], 08/29/2023 15:48:13 08/29/19 24 08/29/2023 COMPR EHENS AMLA METAB OLIC PANEL chloride 105 mmol/ L 98-107 Not Available [facility] (Lab) [address] [place], [address], 08/29/2023 15:48:13 08/29/19 24 08/29/2023 COMPR EHENS ALMA METAB OLIC PANEL carbon dioxide 26 mmol/ L 22-30 Not Available [facility] (Lab) [address] [place], [address], 08/29/2023 15:48:13 08/29/19 24 08/29/2023 COMPR EHENS ALMA METAB OLIC PANEL anion gap 7.5 mmol/ L 14-22 low Not Available [facility] (Lab) [address] [place], [address], 08/29/2023 15:48:13 08/29/19 24 08/29/2023 COMPR EHENS ALMA METAB OLIC PANEL glucose 110 mg/dL 70-99 high Not Available [facility] (Lab) [address] [place], [address], 08/29/2023 15:48:13 08/29/19 24 08/29/2023 COMPR EHENS ALMA METAB OLIC PANEL BUN 17 mg/dL 8-19 Not Available [facility] (Lab) [address] [place], [address], 08/29/2023 15:48:13 08/29/19 24 08/29/2023 COMPR EHENS ALMA METAB OLIC PANEL creatinine 0.90 mg/dL 0.66-1 .25 Not Available [facility] (Lab) [address] [place], [address], 08/29/2023 15:48:13 08/29/19 24 08/29/2023 COMPR EHENS ALMA METAB OLIC PANEL GFR >60 Refer ence Range : [place] ge GFR Healt hy Adult : >60 mL/mi n/1.7 3 m2 Chron ic Kidne y Disea se: 15-60 mL/mi n/1.7 3 m2 Kidne y Failu re: <15/m L/min /1.73 m2 www.n iddk. nih.g ov The MDRD study equat ion has not been valid ated in child rose <18 years of age; pregn ant women ; the elder ly >85 years of age; or in some racia l or ethni c subgr oups, such as Hispa nics. Outsi de the valid ated lynne eters , estim ated GFR is less accur ate, requi ring clini cindy judgm ent on a case- by-ca se basis . Clini cindy inter preta tion for other races and ages must be made by the clini polo. The MDRD study equat ion has not been valid ated for the evalu ation of serum creat inine relat ed to nutri aashish l statu s or medic ation usage . For perso ns <18 years of age, a pedia tric GFR calcu lator is avail able on the F websi te: https ://rojas w.kid cristian.o rg/pr ofess ional s/kdo qi/gf r_cal culat or Not Available [facility] (Lab) [address] [place], [address], 08/29/2023 15:48:13 08/29/19 24 08/29/2023 COMPR EHENS ALMA METAB OLIC PANEL alkaline phosphatase 95 U/L 38-126 Not Available [facility] (Lab) [address] [place], [address], 08/29/2023 15:48:13 08/29/19 24 08/29/2023 COMPR EHENS ALMA METAB OLIC PANEL alanine aminotransfe rase 31 U/L 0-50 Not Available [facility] (Lab) [address] [place], [address], 08/29/2023 15:48:13 08/29/19 24 08/29/2023 COMPR EHENS ALMA METAB OLIC PANEL aspartate aminotransfe rase 34 U/L 15-46 Not Available [facility] (Lab) [address] [place], [address], 08/29/2023 15:48:13 08/29/19 24 08/29/2023 COMPR EHENS ALMA METAB OLIC PANEL bilirubin, total 1.10 mg/dL 0.20-1 .30 Not Available [facility] (Lab) [address] [place], [address], 08/29/2023 15:48:13 08/29/19 24 08/29/2023 COMPR EHENS ALMA METAB OLIC PANEL calcium 9.1 mg/dL 8.4-10 .2 Not Available [facility] (Lab) [address] [place], [address], 08/29/2023 15:48:13 08/29/19 24 08/29/2023 COMPR EHENS ALMA METAB OLIC PANEL total protein 6.7 g/dL 6.3-8. 2 Not Available [facility] (Lab) [address] [place], [address], 08/29/2023 15:48:13 08/29/19 24 08/29/2023 COMPR EHENS ALMA METAB OLIC PANEL albumin 4.3 g/dL 3.0-4. 4 Not Available [facility] (Lab) [address] [place], [address], 08/29/2023 15:48:13 08/29/19 24 08/29/2023 COMPR EHENS ALMA METAB OLIC PANEL globulin 2.4 g/dL 2.6-4. 2 low Not Available [facility] (Lab) [address] [place], [address], 08/29/2023 15:48:13 08/29/19 24 08/29/2023 COMPR EHENS ALMA METAB OLIC PANEL A/G ratio 1.8 ratio 1.0-2. 0 Not Available [facility] (Lab) [address] [place], [address], 08/29/2023 15:48:13 08/29/19 24 08/29/2023 T4 FREE free T4 1.26 NG/dL 0.78-2 .19 Not Available [facility] (Lab) [address] [place], [address], 08/29/2023 16:01:18 08/29/19 24 08/29/2023 TSH thyroid-stim ulating hormone 0.835 uIU/m L 0.465- 4.680 Not Available [facility] (Lab) [address] [place], [address], 08/29/2023 16:11:53 09/11/19 24 09/11/2023 MICRO ALBUM IN RANDO M URINE microalbumin , urine 32.3 mg/L 0.0-16 .6 high Not Available [facility] (Lab) [address] [place], [address], 09/11/2023 20:13:50 09/11/19 24 09/11/2023 HEMOG LOBIN A1C HA1C 5.5 % 4.0-6. 0 Diabe maddie Scree leila Crite antionette: <5.7% Consi stent with absen ce of diabe maddie 5.7-6 .4% Consi stent with incre ased risk for diabe maddie (pred iabet es) >OR=6 .5% Consi stent with diabe maddie REFER ENCE: Diabe maddie Care 2016, 39(Zuluaga ppl.1 ):s13 -s22 Not Available [facility] ([facility]) [address] [place] [address], [place], [address], 09/11/2023 21:26:15 10/05/19 24 10/05/2023 urina lysis , dipst ick Color Yellow Not Available [address], [address], 10/05/2023 16:24:11 10/05/19 24 10/05/2023 urina lysis , dipst ick Appearance Clear Not Available [address], [address], [address], 10/05/2023 16:24:11 10/05/19 24 10/05/2023 urina lysis , dipst ick Glucose (reference range: negative mg/dl) Negati ve Not Available [address], [address], 10/05/2023 16:24:11 10/05/19 24 10/05/2023 urina lysis , dipst ick Bilirubin (reference range: negative mg/dl) Negati ve Not Available [address], [address], 10/05/2023 16:24:11 10/05/19 24 10/05/2023 urina lysis , dipst ick Ketone (reference range: negative mg/dl) Negati ve Not Available [address], [address], [address], 10/05/2023 16:24:11 10/05/19 24 10/05/2023 urina lysis , dipst ick Specific [place] (reference range: 1.005-1.030) 1.015 Not Available [address], [address], 10/05/2023 16:24:11 10/05/19 24 10/05/2023 urina lysis , dipst ick Blood (reference range: negative Trev/??l) Negati ve Not Available [address], [address], 10/05/2023 16:24:11 10/05/19 24 10/05/2023 urina lysis , dipst ick pH (reference range: 5-7) 7.0 Not Available [address], [address], 10/05/2023 16:24:11 10/05/19 24 10/05/2023 urina lysis , dipst ick Protein (reference range: negative mg/dl) Negati ve Not Available [address], [address], 10/05/2023 16:24:11 10/05/19 24 10/05/2023 urina lysis , dipst ick Urobilinogen (reference range: 0.2-1 mg/dl) 0.2 Not Available [address], [address], 10/05/2023 16:24:11 10/05/19 24 10/05/2023 urina lysis , dipst ick Nitrite (reference rage: negative mg/dl) negati ve Not Available [address], [address], 10/05/2023 16:24:11 10/05/19 24 10/05/2023 urina lysis , dipst ick Leukocytes (reference range: negative rama/??l) Small Not Available [facility] [place] [address] [facility], [address], [address], 10/05/2023 16:24:11 11/27/19 24 11/27/2023 CBC/C OMPLE TE BLD COUNT W/DIF F white blood cells 3.9 x10'3 /uL 4.2-10 .8 low Not Available [facility] (Lab) [address] [place], [address], 11/27/2023 13:19:35 11/27/19 24 11/27/2023 CBC/C OMPLE TE BLD COUNT W/DIF F red blood cells 4.75 x10'6 /uL 4.10-5 .80 Not Available [facility] (Lab) [address] [place], [address], 11/27/2023 13:19:35 11/27/19 24 11/27/2023 CBC/C OMPLE TE BLD COUNT W/DIF F hemoglobin 15.6 g/dL 13.2-1 7.0 Not Available [facility] (Lab) [address] [place], [address], 11/27/2023 13:19:35 11/27/19 24 11/27/2023 CBC/C OMPLE TE BLD COUNT W/DIF F hematocrit 45.3 % 39.3-5 0.0 Not Available [facility] (Lab) [address] [place], [address], 11/27/2023 13:19:35 11/27/19 24 11/27/2023 CBC/C OMPLE TE BLD COUNT W/DIF F mean red cell volume 95.4 fL 80.0-9 7.0 Not Available [facility] (Lab) [address] [place], [address], 11/27/2023 13:19:35 11/27/19 24 11/27/2023 CBC/C OMPLE TE BLD COUNT W/DIF F mean red cell hemoglobin 32.8 pg 27.0-3 3.0 Not Available [facility] (Lab) [address] [place], [address], 11/27/2023 13:19:35 11/27/19 24 11/27/2023 CBC/C OMPLE TE BLD COUNT W/DIF F mean RBC HGB concentratio n 34.4 g/dL 31.0-3 6.0 Not Available [facility] (Lab) [address] [place], [address], 11/27/2023 13:19:35 11/27/19 24 11/27/2023 CBC/C OMPLE TE BLD COUNT W/DIF F red cell distribution width 12.5 % 11.8-1 5.5 Not Available [facility] (Lab) [address] [place], [address], 11/27/2023 13:19:35 11/27/19 24 11/27/2023 CBC/C OMPLE TE BLD COUNT W/DIF F platelets 256 x10'3 /uL 150-40 0 Not Available [facility] (Lab) [address] [place], [address], 11/27/2023 13:19:35 11/27/19 24 11/27/2023 CBC/C OMPLE TE BLD COUNT W/DIF F mean platelet volume 9.7 fL 9.0-12 .4 Not Available [facility] (Lab) [address] [place], [address], 11/27/2023 13:19:35 11/27/19 24 11/27/2023 CBC/C OMPLE TE BLD COUNT W/DIF F neutrophils 60.9 % 39.0-7 2.0 Not Available [facility] (Lab) [address] [place], [address], 11/27/2023 13:19:35 11/27/19 24 11/27/2023 CBC/C OMPLE TE BLD COUNT W/DIF F lymphocytes 24.1 % 16.0-4 7.0 Not Available [facility] (Lab) [address] [place], [address], 11/27/2023 13:19:35 11/27/19 24 11/27/2023 CBC/C OMPLE TE BLD COUNT W/DIF F monocytes 11.4 % 5.0-12 .0 Not Available [facility] (Lab) [address] [place], [address], 11/27/2023 13:19:35 11/27/19 24 11/27/2023 CBC/C OMPLE TE BLD COUNT W/DIF F eosinophils 2.8 % 1.0-7. 0 Not Available [facility] (Lab) [address] [place], [address], 11/27/2023 13:19:35 11/27/19 24 11/27/2023 CBC/C OMPLE TE BLD COUNT W/DIF F basophils 0.5 % 0.0-2. 0 Not Available [facility] (Lab) [address] [place], [address], 11/27/2023 13:19:35 11/27/19 24 11/27/2023 CBC/C OMPLE TE BLD COUNT W/DIF F immature granulocytes 0.3 % 0.00-0 .50 Not Available [facility] (Lab) [address] [place], [address], 11/27/2023 13:19:35 11/27/19 24 11/27/2023 CBC/C OMPLE TE BLD COUNT W/DIF F neutrophils, absolute count 2.40 x10'3 /uL 1.5-8. 0 Not Available [facility] (Lab) [address] [place], [address], 11/27/2023 13:19:35 11/27/19 24 11/27/2023 CBC/C OMPLE TE BLD COUNT W/DIF F lymphocytes, absolute count 0.95 x10'3 /uL 1.07-3 .43 low Not Available [facility] (Lab) [address] [place], [address], 11/27/2023 13:19:35 11/27/19 24 11/27/2023 CBC/C OMPLE TE BLD COUNT W/DIF F monocytes, absolute count 0.45 x10'3 /uL 0.29-0 .99 Not Available [facility] (Lab) [address] [place], [address], 11/27/2023 13:19:35 11/27/19 24 11/27/2023 CBC/C OMPLE TE BLD COUNT W/DIF F eosinophils, absolute count 0.11 x10'3 /uL 0.02-0 .53 Not Available [facility] (Lab) [address] [place], [address], 11/27/2023 13:19:35 11/27/19 24 11/27/2023 CBC/C OMPLE TE BLD COUNT W/DIF F basophils, absolute count 0.02 x10'3 /uL 0.01-0 .08 Not Available [facility] (Lab) [address] [place], [address], 11/27/2023 13:19:35 11/27/19 24 11/27/2023 CBC/C OMPLE TE BLD COUNT W/DIF F immature granulocytes ,absolute 0.01 x10'3 /uL 0.00-0 .05 Not Available [facility] (Lab) [address] [place], [address], 11/27/2023 13:19:35 11/27/19 24 11/27/2023 CBC/C OMPLE TE BLD COUNT W/DIF F nucleated red blood cells 0.0 % -0 Not Available [facility] (Lab) [address] [place], [address], 11/27/2023 13:19:35 11/27/19 24 11/27/2023 CBC/C OMPLE TE BLD COUNT W/DIF F NRBC# 0.00 x10'3 /uL Not Available [facility] (Lab) [address] [place], [address], 11/27/2023 13:19:35 11/27/19 24 11/27/2023 LIPID PANEL cholesterol 183 mg/dL 140-19 9 NIH BISMARK NSUS RECOM MENDA TION FOR STANFORD STERO L: ADULT CHILD LOW RISK: <200 <170 BORDE RLINE : <200- 239 ----- HIGH RISK: >240 >200 Not Available [facility] (Lab) [address] [place], [address], 11/27/2023 14:31:52 11/27/19 24 11/27/2023 LIPID PANEL triglyceride s 162 mg/dL 0-150 high NIH BISMARK NSUS REPOR T RECOM MENDA TION FOR TRIGL YCERI PELON: ADULT CHILD LOW RISK: <150 ----- BODER LINE: 150-1 99 ----- HIGH RISK: >200 ----- Not Available [facility] (Lab) [address] [place], [address], 11/27/2023 14:31:52 11/27/1911/27/2023 LIPID PANEL HDL cholesterol 76 mg/dL 40- Not Available [facility] (Lab) [address] [place], [address], 11/27/2023 14:31:52 11/27/19 24 11/27/2023 LIPID PANEL LDL cholesterol, calculated 75 mg/dL 0-130 NIH BISMARK NSUS REPOR T RECOM MENDA TIONS FOR LDL: ADULT CHILD LOW RISK <130 <110 (OPTI MAL LDL) <100 ----- BORDE RLINE : 130-1 59 ----- HIGH RISK: >160 >130 A TRIGL YCERI DE RESUL T >400 INVAL IDATE S THE CALCU LATIO N FOR LDL FRACT IONAT ION - THE LDL RESUL T WILL NOT BE REPOR TAISHA. Not Available [facility] (Lab) [address] [place], [address], 11/27/2023 14:31:52 11/27/19 24 11/27/2023 COMPR EHENS ALMA METAB OLIC PANEL sodium 135 mmol/ L 137-14 5 low Not Available [facility] (Lab) [address] [place], [address], 11/27/2023 14:32:04 11/27/19 24 11/27/2023 COMPR EHENS ALMA METAB OLIC PANEL potassium 4.3 mmol/ L 3.5-5. 1 Not Available [facility] (Lab) [address] [place], [address], 11/27/2023 14:32:04 11/27/19 24 11/27/2023 COMPR EHENS ALMA METAB OLIC PANEL chloride 102 mmol/ L 98-107 Not Available [facility] (Lab) [address] [place], [address], 11/27/2023 14:32:04 11/27/19 24 11/27/2023 COMPR EHENS ALMA METAB OLIC PANEL carbon dioxide 28 mmol/ L 22-30 Not Available [facility] (Lab) [address] [place], [address], 11/27/2023 14:32:04 11/27/19 24 11/27/2023 COMPR EHENS ALMA METAB OLIC PANEL anion gap 9.3 mmol/ L 14-22 low Not Available [facility] (Lab) [address] [place], [address], 11/27/2023 14:32:04 11/27/19 24 11/27/2023 COMPR EHENS ALMA METAB OLIC PANEL glucose 111 mg/dL 70-99 high Not Available [facility] (Lab) [address] [place], [address], 11/27/2023 14:32:04 11/27/19 24 11/27/2023 COMPR EHENS ALMA METAB OLIC PANEL BUN 20 mg/dL 8-19 high Not Available [facility] (Lab) [address] [place], [address], 11/27/2023 14:32:04 11/27/19 24 11/27/2023 COMPR EHENS ALAM METAB OLIC PANEL creatinine 0.86 mg/dL 0.66-1 .25 Not Available [facility] (Lab) [address] [place], [address], 11/27/2023 14:32:04 11/27/19 24 11/27/2023 COMPR EHENS ALMA METAB OLIC PANEL GFR >60 Refer ence Range : [place] ge GFR Healt hy Adult : >60 mL/mi n/1.7 3 m2 Chron ic Kidne y Disea se: 15-60 mL/mi n/1.7 3 m2 Kidne y Failu re: <15/m L/min /1.73 m2 www.n iddk. nih.g ov The MDRD study equat ion has not been valid ated in child rose <18 years of age; pregn ant women ; the elder ly >85 years of age; or in some racia l or ethni c subgr oups, such as Hispa nics. Outsi de the valid ated lynne eters , estim ated GFR is less accur ate, requi ring clini cindy judgm ent on a case- by-ca se basis . Clini cindy inter preta tion for other races and ages must be made by the clini polo. The MDRD study equat ion has not been valid ated for the evalu ation of serum creat inine relat ed to nutri aashish l statu s or medic ation usage . For perso ns <18 years of age, a pedia tric GFR calcu lator is avail able on the [facility] websi te: https ://rojas foster.o cristino/pr ofess ional s/kdo qi/gf r_cal culat or Not Available [facility] (Lab) [address] [place], [address], 11/27/2023 14:32:04 11/27/19 24 11/27/2023 COMPR EHENS ALMA METAB OLIC PANEL alkaline phosphatase 102 U/L 38-126 Not Available [facility] (Lab) [address] [place], [address], 11/27/2023 14:32:04 11/27/19 24 11/27/2023 COMPR EHENS ALMA METAB OLIC PANEL alanine aminotransfe rase 21 U/L 0-50 Not Available [facility] (Lab) [address] [place], [address], 11/27/2023 14:32:04 11/27/19 24 11/27/2023 COMPR EHENS ALMA METAB OLIC PANEL aspartate aminotransfe rase 27 U/L 15-46 Not Available [facility] (Lab) [address] [place], [address], 11/27/2023 14:32:04 11/27/19 24 11/27/2023 COMPR EHENS ALMA METAB OLIC PANEL bilirubin, total 0.90 mg/dL 0.20-1 .30 Not Available [facility] (Lab) [address] [place], [address], 11/27/2023 14:32:04 11/27/19 24 11/27/2023 COMPR EHENS ALMA METAB OLIC PANEL calcium 9.2 mg/dL 8.4-10 .2 Not Available [facility] (Lab) [address] [place], [address], 11/27/2023 14:32:04 11/27/19 24 11/27/2023 COMPR EHENS ALMA METAB OLIC PANEL total protein 6.8 g/dL 6.3-8. 2 Not Available [facility] (Lab) [address] [place], [address], 11/27/2023 14:32:04 11/27/19 24 11/27/2023 COMPR EHENS ALMA METAB OLIC PANEL albumin 4.1 g/dL 3.0-4. 4 Not Available [facility] (Lab) [address] [place], [address], 11/27/2023 14:32:04 11/27/19 24 11/27/2023 COMPR EHENS ALMA METAB OLIC PANEL globulin 2.7 g/dL 2.6-4. 2 Not Available [facility] (Lab) [address] [place], [address], 11/27/2023 14:32:04 11/27/19 24 11/27/2023 COMPR EHENS ALMA METAB OLIC PANEL A/G ratio 1.5 ratio 1.0-2. 0 Not Available [facility] (Lab) [address] [place], [address], 11/27/2023 14:32:04 11/27/19 24 11/27/2023 T4 FREE free T4 1.17 NG/dL 0.78-2 .19 Not Available [facility] (Lab) [address] [place], [address], 11/27/2023 14:52:18 11/27/19 24 11/27/2023 PSA, TOTAL PSA, total 0.21 NG/mL 0.00-4 .00 Not Available [facility] (Lab) [address] [place], [address], 11/27/2023 15:02:28 11/27/19 24 11/28/2023 TSH thyroid-stim ulating hormone 0.638 uIU/m L 0.465- 4.680 Not Available [facility] (Lab) [address] [place], [address], 11/28/2023 12:30:06 Result Notes None recorded. Problems Name Problem SNOMED Code Status Onset Date Resolution Date Notes Provider Name and Address Organization Details Recorded Time Fracture of multiple ribs 9737267 Active Not Available [facility] 3 21:24:33 Disorder of thyroid gland 87533032 Active Not Available [facility] 3 21:24:33 Blood glucose outside reference range 632074439 Active 2021 Not Available [facility] 3 21:24:33 Dementia associated with another disease 431737836 Active Not Available [facility] 3 21:24:33 Laceration of kidney 253038072 Active Not Available [facility] 3 21:24:33 Benign prostatic hyperplasi a 188096099 Active Not Available [facility] 3 21:24:33 Chest pain 73937084 Active Not Available [facility] 3 21:24:33 Restless legs 04917520 Active Not Available [facility] 3 21:24:33 Closed fracture of metatarsal bone 51255673 Active Not Available [facility] 3 21:24:33 Prostate specific antigen above reference range 545368259 Active Not Available [facility] 3 21:24:33 Osteoarthr itis 145196726 Active 2015 Not Available [facility] 3 21:24:33 Malignant tumor of prostate 785774150 Active Not Available [facility] 3 21:24:33 Disorder of rotator cuff 565646611 Active Not Available [facility] 3 21:24:33 Closed injury of head 492052226061 Active Not Available [facility] 3 21:24:33 Primary erectile dysfunctio n 298117223 Active 2021 Not Available [facility] 3 21:24:33 Upper respirator y infection 10836946 Active Not Available [facility] 3 21:24:33 Obstructiv e sleep apnea syndrome 72483109 Active Not Available [facility] 3 21:24:33 Ganglion of joint 50144718 Active Not Available [facility] 3 21:24:33 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 3 12:25:39 Hyperlipid emia 85606737 Active 2022 Lee lam MD [address], [facility] [address], [place], [address] , [facility] 3 14:03:10 Essential hypertensi on 55347689 Active 2022 Lee lam MD [address], [facility] [address], [place], [address] , [facility] [facility] 3 14:03:15 Hypothyroi dism [id number] Active 2022 Lee lam MD [address], [facility] [address], [place], [address] , [facility] 3 14:03:26 Leukopenia 01638134 Active 2022 Lee lam MD [address], [facility] [address], [place], [address] , [facility] 3 14:03:33 Hyperglyce lance [id number] Active 2022 Sera redmond, [facility] 3 16:13:35 Gastroesop hageal reflux disease without esophagiti s 023398081 Active 2023 Lee lam MD [address], [address], [place], [address] , [employer] [facility] 4 14:34:51 Problem Notes None recorded. Procedures Surgical History Date Name Laterality Status Provider Name and Address Organization Details Recorded Time 12/05/19 24 Medicare Wellness CPT Code, subsequent completed Chino Guzman LPN [employer] [facility] 12/05/2023 08:24:11 12/05/19 24 Advanced Care Planning completed Chino Guzman LPN [employer] [facility] 12/05/2023 14:23:21 09/18/19 24 Callus Debridement 2-4 completed Jonathan Alarcon DPM [address], [address], [place], [address], [employer] [facility] 09/18/2023 14:13:48 09/05/19 24 Medicare Wellness CPT Code, subsequent completed Chino Guzman LPN [employer] [facility] 09/04/2023 10:08:07 05/20/19 21 Dental completed Not Available [facility] 3 05:54:21 06/07/19 18 Colonoscopy completed Not Available [facility] 05/11/19 23 05:54:21 Cyst Removal completed Not Available [facility] 05/10/2022 05:54:21 other completed Not Available [facility] 03/2022 05:54:21 Cataract Surgery completed ARIANNA Hernandez [facility] 02/28/2023 13:58:43 Imaging Results None recorded. Procedure Notes None recorded. Medical Equipment None Reported. Allergies Allergen ID Allergen Name Allergen Category Reaction Reaction Severity Criticality Documentation Date Start Date Code Code System Note Provider Name and Address Organization Details Recorded Time 29800 trazodone medicatio n hives Not available Not available 05/10/2022 02884 RxNorm Not Available [facility] 3 06:06:54 Medications Name Sig Start Date Stop Date Status Note LastModified by Organization Details LastModified Time atorvasta tin 40 mg tablet TAKE 1 TABLET BY MOUTH ONCE DAILY active Not Available Not Available No t Available buspirone 5 mg tablet Take 1 tablet twice a day by oral route. active Not Available Not Available No t Available bicalutam jairo 50 mg tablet 1 TAB Daily 07/01 completed Not Available Not Available Not Available prednison e 10 mg tablet Take by oral route. active Not Available Not Available No t Available trazodone 50 mg tablet TAKE 1 TABLET BY MOUTH AT BEDTIME active Not Available Not Available No t Available sildenafi l 50 mg tablet Take 1 tablet twice a week by oral route as needed for 90 days. active Not Available Not Available No t Available azithromy shelley 250 mg tablet TAKE 2 TABLETS BY MOUTH ON DAY 1 AND THEN TAKE 1 TABLET BY MOUTH ONCE A DAY ON DAY 2 THROUGH DAY 5 11/29 completed Not Available Not Available Not Available pravastat in 40 mg tablet TAKE 1 TABLET BY MOUTH ONCE DAILY 05/25 completed Not Available Not Available Not Available ofloxacin 0.3 % eye drops INSTILL ONE DROP INTO THE AFFECTED EYE(S) THREE TIMES DAILY. TO START TWO DAYS PRIOR TO SURGERY AND CONTINUE FOR ONE WEEK AFTER 02/28 completed Not Available Not Available Not Available hydrocodo ne 5 mg-acetam inophen 325 mg tablet 11/29 completed Not Available Not Available Not Available donepezil 10 mg tablet Take 1 tablet every day by oral route for 90 days. 10/14 completed Not Available Not Available Not Available Effexor XR 37.5 mg capsule,e xtended release Take 1 capsule every day by oral route. 11/29 completed Urologis t added this for hot flashes Not Available Not Available Not Available clonazepa m 0.5 mg tablet Take 1 tablet every day by oral route at bedtime for 30 days. 06/06 completed called to lauren chavarria Not Available Not Available Not Available ropinirol e 3 mg tablet TAKE 1 TABLET BY MOUTH ONCE DAILY. NO ALCOHOL DRIVING OR WITH SEDATING MEDICATI ONS 08/28 completed Not Available Not Available Not Available penicilli n V potassium 500 mg tablet active Not Available Not Available Not Available ciproflox acin 250 mg tablet 02/12 completed Not Available Not Available Not Available ciproflox acin 500 mg tablet Take 1 tablet(s ) every 12 hours by oral route starting one day before the procedur e. 02/16 completed Not Available Not Available Not Available tramadol 50 mg tablet Take 1 tablet twice a day by oral route as needed for 10 days. active Not Available Not Available No t Available levothyro xine 25 mcg tablet TAKE 1 TABLET BY MOUTH ONCE DAILY active Not Available Not Available No t Available ketorolac 0.5 % eye drops INSTILL ONE DROP INTO THE AFFECTED EYE(S) THREE TIMES DAILY. TO START TWO DAYS PRIOR TO SURGERY AND CONTINUE FOR ONE WEEK AFTER 02/28 completed Not Available Not Available Not Available oxycodone -acetamin ophen 5 mg-325 mg tablet active Not Available Not Available Not Available alprazola m 0.25 mg tablet Take 1 tablet 3 times a day by oral route. 08/14 completed Not Available Not Available Not Available prednisol one acetate 1 % eye drops,dina pension INSTILL ONE DROP INTO THE AFFECTED EYE(S) THREE TIMES DAILY. TO START AFTER SURGERY AND CONTINUE FOR THREE WEEKS 02/28 completed Not Available Not Available Not Available tamsulosi n 0.4 mg capsule 02/12 completed Not Available Not Available Not Available trazodone 100 mg tablet TAKE 1 TABLET BY MOUTH AT BEDTIME NEEDED 08/28 completed Not Available Not Available Not Available amlodipin e 10 mg tablet Take 1 tablet every day by oral route for 90 days. active Not Available Not Available No t Available ropinirol e 2 mg tablet active Not Available Not Available Not Available erythromy shelley 5 mg/gram (0.5 %) eye ointment 08/14 completed Not Available Not Available Not Available venlafaxi ne 37.5 mg tablet TAKE 1 TABLET BY MOUTH ONCE DAILY active Not Available Not Available No t Available Viagra 25 mg tablet Take 1 tablet every week by oral route as needed for 60 days. 03/18 completed Not Available Not Available Not Available lisinopri l 10 mg tablet Take 1 tablet every day by oral route for 90 days. active Not Available Not Available No t Available hydrochlo rothiazid e 12.5 mg capsule TAKE 1 CAPSULE BY MOUTH ONCE DAILY FOR 90 DAYS active Not Available Not Available No t Available gabapenti n 300 mg capsule TAKE ONE CAPSULE BY MOUTH TWICE DAILY AT 5 PM AND BEDTIME 11/29 completed Not Available Not Available Not Available omeprazol e 20 mg capsule,d elayed release TAKE 1 CAPSULE BY MOUTH ONCE DAILY NEEDED active Not Available Not Available No t Available pravastat in 20 mg tablet Take 1 tablet every day by oral route. 06/17 completed Not Available Not Available Not Available mupirocin 2 % topical ointment 08/14 completed Not Available Not Available Not Available zolpidem 5 mg tablet TAKE 1 TABLET BY MOUTH ONCE DAILY AT BEDTIME active Not Available Not Available No t Available levofloxa shelley 500 mg tablet active Not Available Not Available No t Available zolpidem 10 mg tablet TAKE 1 TABLET BY MOUTH ONCE DAILY AT NIGHT NEEDED. NO ALCOHOL NO DRIVING NO OTHER SEDATING MEDICATI ONS AND DO NOT TAKE WITH TRAZODON E. 05/16 completed Not Available Not Available Not Available fluticaso ne propionat e 50 mcg/actua tion nasal spray,dina pension USE 1 SPRAY(S) IN EACH NOSTRIL ONCE DAILY 05/25 completed Not Available Not Available Not Available loratadin e 10 mg tablet TAKE 1 TABLET BY MOUTH ONCE DAILY 11/29 completed Not Available Not Available Not Available rosuvasta tin 20 mg tablet Take 1 tablet every day by oral route. 11/29 completed Not Available Not Available Not Available Cialis 5 mg tablet Take 1 tablet every day by oral route for 90 days. 08/28 completed Not Available Not Available Not Available Cialis 20 mg tablet Take 20mg 1 hour prior to sexual activity 08/28 completed Not Available Not Available Not Available Cosamin DS Take 1500 mg. daily 11/29 completed Not Available Not Available Not Available peg 3350 240 gram-elec trolytes 22.72 gram-6.72 g-5.84 g powdr for soln 11/26 completed Not Available Not Available Not Available GaviLyte- N 420 gram oral solution active Not Available Not Available Not Available Osteo Bi-Flex Take one tablet daily 02/12 completed Not Available Not Available Not Available Fluzone High-Dose 2014- (PF) 180 mcg/0.5 mL intramusc ular syringe active Not Available Not Available Not Available Fluzone High-Dose (PF) 180 mcg/0.5 mL intramusc ular syringe ADM 0.5ML IM UTD 11/29 completed Not Available Not Available Not Available Fluzone High-Dose 7353-1813 (PF) 180 mcg/0.5 mL intramusc ular syringe ADM 0.5ML IM UTD 02/12 completed Not Available Not Available Not Available Vitals Date Recorded Body height Body mass index (BMI) Body weight Body temperature Heart rate Systolic blood pressure Diastolic blood pressure Provider Name and Address Organization Details Last Updated DateTime 3 152.4 cm 29.3 kg/m2 51426.8 6 g 97.6 [degF] 78 /min 130 mm[Hg] 80 mm[Hg] Naila Arizmendi [facility] 3 14:00:07 Date Recorded Body height Body mass index (BMI) Body weight Body temperature Heart rate Systolic blood pressure Diastolic blood pressure Provider Name and Address Organization Details Last Updated DateTime 4 152.4 cm 29.9 kg/m2 35730.6 3 g 97.7 [degF] 78 /min 134 mm[Hg] 72 mm[Hg] Naila Arizmendi [facility] 4 14:05:04 Date Recorded Body height Body mass index (BMI) Body weight Oxygen saturation Oxygen saturation in Arterial blood by Pulse oximetry Body temperature Heart rate Systolic blood pressure Diastolic blood pressure Provider Name and Address Organization Details Last Updated DateTime 4 152.4 cm 30.1 kg/m2 88595.2 2 g 96 % 96 % 98.4 [degF] 53 /min 179 mm[Hg] 102 mm[Hg] Star Archer [facility] [employer] [facility] 4 11:20:19 Date Recorded Body height Heart rate Body temperature Body mass index (BMI) Body weight Oxygen saturation Oxygen saturation in Arterial blood by Pulse oximetry Systolic blood pressure Diastolic blood pressure Provider Name and Address Organization Details Last Updated DateTime 4 152.4 cm 90 /min 98.1 [degF] 30.1 kg/m2 83830.2 2 g 98 % 98 % 166 mm[Hg] 101 mm[Hg] Swathi Wilson [facility] [employer] [facility] 4 16:22:25 Date Recorded Body height Body mass index (BMI) Body weight Body temperature Heart rate Systolic blood pressure Diastolic blood pressure Provider Name and Address Organization Details Last Updated DateTime 4 152.4 cm 29.3 kg/m2 70138.8 6 g 97.4 [degF] 90 /min 142 mm[Hg] 84 mm[Hg] ARIANNA Hernandez [place] [facility] 4 14:07:10 Social History Question Answer Notes LastModified by Organization Details LastModified Time Tobacco Smoking Status Never Smoker Not Available [employer] 05/10/2022 05:53:36 Do You Have An Advance Directive? No MIGRATION.0301 [id number] Information not available 05/10/2022 What Is Your Level Of Alcohol Consumption? Occasional MIGRATION.0301 [id number] Information not available 05/10/2022 How Many Years Have You Consumed Alcohol? 60 Information not available 12/05/2023 Do You Wear A Helmet When Biking? No Does Not Bike [email or web address] Information not available 12/05/2023 Are You Blind Or Do You Have Difficulty Seeing? No MIGRATION.0301 [id number] Information not available 05/10/2022 What Is Your Level Of Caffeine Consumption? Moderate MIGRATION.0301 031706 Information not available 05/10/2022 What Is Your Code Status? Full Code [email or web address] Information not available 12/05/2023 In The 14 Days Before Symptom Onset, Have You Had Close Contact With A Laboratory-confi rmed COVID-19 While That Case Was Ill? No MIGRATION.0301 [id number] Information not available 05/10/2022 In The 14 Days Before Symptom Onset, Have You Had Close Contact With A Person Who Is Under Investigation For COVID-19 While That Person Was Ill? No MIGRATION.0301 [id number] Information not available 05/10/2022 Are You Currently Employed? No [email or web address] Information not available 12/05/2023 Are You Deaf Or Do You Have Serious Difficulty Hearing? Yes Has Hearing Aids MIGRATION.0301 [id number] Information not available 05/10/2022 What Type Of Diet Are You Following? REGULAR MIGRATION.030 [id number] Information not available 05/10/2022 What Is The Highest Grade Or Level Of School You Have Completed Or The Highest Degree You Have Received? MG70188-4 MIGRATION.[id number] Information not available 05/10/2022 What Is Your Occupation? Retired MIGRATION.[id number] Information not available 05/10/2022 How Many Days Of Moderate To Strenuous Exercise, Like A Brisk Walk, Did You Do In The Last 7 Days? 0 [email or web address] Information not available 12/05/2023 Have There Been Any Changes To Your Family Or Social Situation? No MIGRATION.030 704895 Information not available 05/10/2022 What Is The Fluoride Status Of Your Home? Unknown [email or web address] Information not available 12/05/2023 Are There Any Guns Present In Your Home? Yes MIGRATION.030 785510 Information not available 05/10/2022 Do You Use Insect Repellent Routinely? Yes MIGRATION.[id number] Information not available 05/10/2022 Where Do You Live? SingleLevelHouse MIGRATION.[id number] Information not available 05/10/2022 Presence Of Domestic Violence No [email or web address] Information not available 12/05/2023 Guns Present In The Home? Yes [email or web address] Information not available 12/05/2023 Are You Blind Or Do Yo Have Difficulty Seeing? No Information not available 12/05/2023 Are You Deaf Or Do You Have Serious Difficulty Hearing? Yes Wears Hearing Aids. [email or web address] Information not available 12/05/2023 General Stress Level? Low [email or web address] Information not available 12/05/2023 Live Alone Of With Others? With Others [email or web address] Information not available 12/05/2023 Do You Have A Medical Power Of Found[employer]all[employer]? No MIGRATION.[id number] Information not available 05/10/2022 What Was The Date Of Your Most Recent Tobacco Screening? 12/05/2023 [email or web address] Information not available 12/05/2023 How Many Children Do You Have? 1 Information not available 12/05/2023 Have You Ever Been Counseled For Unhealthy Alcohol Use? No MIGRATION.030 821991 Information not available 05/10/2022 Do You Have Any Pets? No MIGRATION.030 368659 Information not available 05/10/2022 What Is Your Relationship Status? MIGRATION.030 173702 Information not available 05/10/2022 Do You Use Your Seat Belt Or Car Seat Routinely? Yes MIGRATION.0301 [id number] Information not available 05/10/2022 Are You Sexually Active? No [email or web address] Information not available 12/05/2023 Do You Have Smoke And Carbon Monoxide Detectors In Your Home? Yes MIGRATION.0301 866699 Information not available 05/10/2022 Are You Passively Exposed To Smoke? No MIGRATION.0301 421513 Information not available 05/10/2022 Are There Any Smokers In Your House? No MIGRATION.0301 840620 Information not available 05/10/2022 How Much Tobacco Do You Smoke? No MIGRATION.0301 423143 Information not available 05/10/2022 What Types Of Sporting Activities Do You Participate In? None MIGRATION.0301 643699 Information not available 05/10/2022 Do You Feel Stressed (tense, Restless, Nervous, Or Anxious, Or Unable To Sleep At Night)? [id number] MIGRATION.0301 105461 Information not available 05/10/2022 Do You Use Any Illicit Or Recreational Drugs? No MIGRATION.0301 832483 Information not available 05/10/2022 Do You Use Sunscreen Routinely? Yes [email or web address] Information not available 12/05/2023 Has Tobacco Cessation Counseling Been Provided? No [email or web address] Information not available 12/05/2023 How Many Years Have You Smoked Tobacco? 0 MIGRATION.0301 [id number] Information not available 05/10/2022 Have You Recently Traveled Abroad? No MIGRATION.0301 412817 Information not available 05/10/2022 Do You Have Any Dietary Restrictions? No MIGRATION.0301 553200 Information not available 05/10/2022 Do You Or Have You Ever Used Any Other Forms Of Tobacco Or Nicotine? No MIGRATION.0301 004237 Information not available 05/10/2022 How Many Days In The Past Year Have You Consumed 5 Or More Drinks? 0 Information not available 12/05/2023 Sex: Male Functional Status Question Answer Note LastModified by Organizat ion Details LastModified Time Do you have difficulty walking or climbing stairs? No MIGRATION.009778 4679 Information not available 05/10/2022 Do you have transportation difficulties? No MIGRATION.087077 1271 Information not available 05/10/2022 Are you able to walk? YESWOREST MIGRATION.765559 9700 Information not available 05/10/2022 Do you have difficulty doing errands alone? No MIGRATION.406756 8270 Information not available 05/10/2022 Are you able to care for yourself? Yes MIGRATION.753650 1744 Information not available 05/10/2022 Do you have difficulty dressing or bathing? No MIGRATION.103298 1470 Information not available 05/10/2022 What is your exercise level? None stays active MIGRATION.851227 4114 Information not available 05/10/2022 Mental Status Question Answer Note LastModified by Organizat ion Details LastModified Time Do you have difficulty concentrating, remembering or making decisions? No MIGRATION.[id number] 6 Information not available 05/10/2022 Family History Relationship Description Onset Age of this Age Resolved Age Notes LastModified by Organization Details LastModified Time Father Heart disease MIGRATION.309 [id number] Not available 05/10/2022 05:54:22 Father Cerebrovascu lar accident MIGRATION.159 [id number] Not available 05/10/2022 05:54:22 Sister Malignant tumor of breast MIGRATION.081 [id number] Not available 05/10/2022 05:54:22 Unspecified Relation Family history of malignant neoplasm MIGRATION.285 [id number] Not available 05/10/2022 05:54:22 Medical History Condition Response BLINDNESS N KIDNEY STONES N MRSA N CARPAL TUNNEL SYNDROME N LUNG DISEASE/DISORDER N HISTORY OF DRUG ABUSE N COPD N RADIATION / CHEMOTHERAPY Y SPORTS INJURY N ANKLE PAIN N BLOOD DISEASES N SCHIZOPHRENIA N SHINGLES N SHOULDER PAIN N DEPRESSION (INCLUDING POST ) N BOWEL PROBLEMS N STROKE/TIA N KNEE PAIN N ULCERS N BENIGN PROSTATIC HYPERPLASIA Y OBESITY N GERD/NAUSEA N ANEURYSM N URINARY/BLADDER/KIDNEY PROBLEMS N CORONARY ARTERY DISEASE (CAD) N ADDICTION CONCERNS N USE OF BLOOD THINNERS N SKIN PROBLEMS N EMPHYSEMA N MUSCLE,JOINT OR BONE PROBLEMS N DVT N STOMACH ULCERS N BLOOD CLOTS N USE OF NSAIDS N CONCUSSION OR SPINAL TRAUMA N ERECTILE DYSFUNCTION Y NEUROPATHY N AIDS/HIV N FRACTURES N HYPERTENSION Y ELBOW PAIN N TOURETTE'S N Metal allergy N ANXIETY DISORDER N BLOOD TRANSFUSION N ANEMIA/BLOOD DISORDER N BIPOLAR DISORDER N BRONCHITIS N OSTEOARTHRITIS Y TUBERCULOSIS N FOOT PROBLEM N HEART VALVE DISORDERS N SLEEP APNEA Y ALLERGIES/HAYFEVER N SOFT TISSUE INJURY N INFECTIOUS DISEASE N HEART ARRHYTHMIA N PROSTATE Y INSOMNIA Y HIGH CHOLESTEROL / HYPERLIPIDEMIA Y RHEUMATOID ARTHRITIS N EDEMA N CHRONIC PAIN SYNDROME N CAROTID BLOCKAGE N BACK / NECK PROBLEMS N BURSITIS N HERNIATED DISC N DIALYSIS N FIBROMYALGIA N OSTEOPOROSIS N PERIPHERAL NEUROPATHY N DIABETES, TYPE N HEARTBURN / REFLUX N HEPATITIS / LIVER DISEASE N GOUT N ALZHEIMER'S DISEASE N SLEEP DISORDER N DEMENTIA Y HERPES N HEADACHES/MIGRAINES N SEIZURES/EPILEPSY N VASCULAR DISEASE N Blood Disorder N HIP PAIN N DIZZINESS N HEAD TRAUMA OR INJURY N HEART DISEASE/HEART PROBLEMS N MULTIPLE SCLEROSIS N CANCER: SPECIFY Y CARDIAC ARRHYTHMIA N ANESTHESIA COMPLICATIONS N ATRIAL FIBRILLATION N AUTOIMMUNE DISEASE N Immunizations Vaccine Type Date Status Note Provider Nam e and Address Organization Details Recorded Time COVID-19 vaccine, vector-nr, rS-Ad26, PF, 0.5 mL 1 completed Naila Arizmendi RMA null, [facility] 12/05/2023 14:04:45 COVID-19 vaccine, vector-nr, rS-Ad26, PF, 0.5 mL 1 completed Naila Arizmendi RMA null, [facility] 12/05/2023 14:04:45 Influenza, high-dose, trivalent, PF 6 completed Naila Arizmendi RMA null, [facility] 12/05/2023 14:04:45 Influenza, high-dose, trivalent, PF 7 completed Naila Arizmendi RMA null, [facility] 12/05/2023 14:04:45 Influenza, high-dose, trivalent, PF 5 completed Naila Arizmendi RMA null, [facility] 12/05/2023 14:04:45 COVID-19, mRNA, LNP-S, PF, 100 mcg/0.5mL dose or 50 mcg/0.25mL dose 1 completed Naila Arizmendi RMA null, [facility] 12/05/2023 14:04:45 Influenza, split virus, trivalent, preservative 5 completed Naila Arizmendi RMA null, [facility] 12/05/2023 14:04:45 Influenza, high-dose, trivalent, PF 9 completed ARIANNA Hernandez, [employer] [facility] 12/05/2023 14:04:45 influenza, unspecified formulation 7 completed Not Available [facility] 07/16/2022 21:24:34 TIG 6 completed Not Available [facility] 07/16/2022 21:24:34 Influenza, high-dose, quadrivalent, PF 2 completed Not Available [facility] 07/16/2022 21:24:34 Influenza, high-dose, quadrivalent, PF 2 completed LETICIA HernandezA null, [employer] [facility] 12/05/2023 14:04:45 Influenza, high-dose, trivalent, PF 9 completed Not Available [facility] 07/16/2022 21:24:34 pneumococcal polysaccharide PPV23 9 completed Not Available [facility] 07/16/2022 21:24:34 Pneumococcal conjugate PCV 13 7 completed Not Available [facility] 07/16/2022 21:24:34 Influenza, split virus, trivalent, preservative 4 completed Naila Arizmendi RMA nyla, [employer] [facility] 12/05/2023 14:04:45 Influenza, split virus, trivalent, PF 3 completed Naila Arizmendi RMA nyla, [employer] [facility] 12/05/2023 14:04:45 Influenza, high-dose, quadrivalent, PF 3 completed Lee Graham MD [address], [facility] [address], [place], [address], [employer] [facility] 02/28/2023 18:06:54 Influenza, high-dose, trivalent, PF 4 completed Lee Graham MD [address], [address], [place], [address], [employer] [facility] 12/10/2023 15:31:44 Past Encounters Encounter ID Performer Location Encounter Start Date Encounter Closed Date Diagnosis/Indication Diagnosis SNOMED-CT Code Diagnosis ICD10 Code Diagnosis Note [id number] [facility] [place] [address] [place] [address] 05/31/2020 00:00:00 11/10/2020 11:01:26 [id number] [facility] [place] [address] [place] [address] 06/29/2020 00:00:00 06/29/2020 16:50:28 [id number] [facility] [place] [address] [place] [address] 08/24/2020 00:00:00 08/24/2020 13:05:02 [id number] [facility] [place] [address] [facility] [address] , [place] [address] 11/29/2020 00:00:00 01/03/2021 17:59:55 [id number] [facility] [place] [address] [place] [address] y , [place] [address] 05/25/2021 00:00:00 05/25/2021 14:43:04 [id number] [facility] [place] [address] [place] [address] y , [place] [address] 10/10/2021 00:00:00 10/10/2021 17:10:57 [id number] [facility] [address] [address] 10/26/2021 00:00:00 10/26/2021 10:49:49 [id number] [facility] [facility] [address] [address] 11/23/2021 00:00:00 11/23/2021 09:48:11 [id number] [facility] [address] [address] 12/30/2021 00:00:00 12/30/2021 14:29:32 [id number] [facility] Christopher escobedo [address] [place] [address] 02/27/2022 00:00:00 02/27/2022 14:47:47 [id number] Da Stokes MD [facility] [place] [address] [place] [address], [address] [place] [address] 05/24/2022 13:36:00 05/25/2022 08:12:42 Malignant tumor of prostate [id number] C61 :-INITIAL DIAGNOSIS: 02/22/2016 - GS 6, cT2b -TREATMENT HISTORY:2018 - 03/2020 ADT12/2018 Completed IMRT -PERTINENT IMAGIN Prostate MRI - concern for extra-pros tatic extension CT CAP - negative2018 Bone Scan - negative -PSA (T) TREND:05/22 - 0.128/ 022 - 0.13 (T = 293)03/16/19 21 - Undetectab le (T = 7.2)07/2018 - 7.93 ----- Plan for q6mos PSA through 10/2022 (1 year after T recovered from ADT), then space to annual Primary er ectile dysfunction [id number] N52.9 :Per Dr Powell, patient on cialis 5mg daily, plus 20mg 1 hour prior to sexual activity, plus L citrulline 3000mg. - If this does not do well, next step is ICI. Patient is hesitant about this. Because of that, will hold on follow ups with Dr. Powell Increased frequency of urination [id number] R35.0 :Unclear etiology for urinary symptoms at this time. In addition to potential etiologies of infection/ UTI or inflammati on, are a general failure to empty the bladder (BPH, Strictures , etc), or a failure to store urine (Overactiv e bladder/Bl adder Spasms). ACUTE WORKUP:-Ur inalysis (to rule out infection) ; will culture if UA concerning -Will hold on antibiotic s until culture data returns ETIOLOGY WORKUP:-To differenti ate failure to store vs. empty-PVR today [id number] Lee lam MD [facility] Internal Med Crhistopher escobedo [address] [facility] [place] [address] 08/28/2022 13:44:29 08/28/2022 14:19:01 Screening - NAD [id number] Z13.9 Colonoscop y: Dr Rainey [facility] 03/15/18, next in one year2020: C-scope: tubular adenoma: Dr Sullivan Get flu shotUTD tdap 01/11/16 ould get shinglesUT D pneumovax. #13 and #23UTD on COVID 19 vaccine RTC in 4 monthswith labsand he did verbalize his understand ing of the above Persistent insomnia 1919 55656 G47.09 Now does well on the trazodone 100mg daily Hyperlipidemia 42131684 E78.5 On atorvastat in 40mg dailyGet labs Essential hypertension 09713562 I10 On amlodipine 10mg dailyOn HCTZ 12.5mg daily Does well Restless legs 05298869 G 25.81 Hx of ANJU on CPAP, but he states that he does not use the CPAP as he 'hated it' and 'threw' it away, does not want any more testing Not taking ropinirole 3mg daily Hypothyroidism 39334549 E03.9 On levothyrox ine 25mcgs daily US thyroid 10/10/2021 : Neg Leukopenia 21408024 D72. [address] Noguera last 11/22/2021 Prostate s pecific antigen above reference range 179532208 R97.20 OV 05/31/2020 :He has seen Dr Valle and is getting lupron shots every 6 monthsHe states that urology checks his PSAIs no longer on any viagra or any ED meds at this time as per his history OV 11/29/2020 :On lupron as per Dr Metcalfees Dr Valle 12/29/2020 Also on effexor as per urology for 'hot flashes' in the past OV 05/25/2021 :PSA <0.064Does well now OV 10/10/2021 : Does well now OV 02/27/2022 :Sees Dr Stokes OV 08/28/2022 :Keep apt with Dr Stokes Primary er ectile dysfunction [id number] N52.9 On sildenafil 50mg as needed, but this has not helped, s/p radiation Rx for prostate cancer, will refer to urology Seen by Dr Stokes next apt 11/22/2022 [id number] Lee lam MD [facility] Christopher escobedo [address] [place] [address] 02/28/2023 13:51:38 02/28/2023 14:26:20 Screening - NAD [id number] Z13.9 Colonoscop y: Dr Rainey [facility] 03/15/18, next in one year2020: C-scope: tubular adenoma: Dr Sullivan Get flu shotUTD tdap 01/11/16 ould get shinglesUT D pneumovax. #13 and #23UTD on COVID 19 vaccineCan do RSV vaccine RTC in 6 monthswith labsand he did verbalize his understand ing of the above Persistent insomnia 1919 93480 G47.09 Now does well on the trazodone 50mg daily, can do 2 tablets if needed and OK to renew 02/28/2023 Hyperlipidemia 80307373 E78.5 On atorvastat in 40mg dailyMore diet and exercise, he does state that he is eating more sweetsGet labs Essential hypertension 21731631 I10 On amlodipine 10mg dailyOn HCTZ 12.5mg daily Does well Restless legs 74880539 G 25.81 Hx of ANJU on CPAP, but he states that he does not use the CPAP as he 'hated it' and 'threw' it away, does not want any more testing Not taking ropinirole 3mg daily Hypothyroidism 07452671 E03.9 On levothyrox ine 25mcgs daily US thyroid 10/10/2021 : Neg Leukopenia 32395603 D72. [address] Noguera last 11/22/2021 Prostate s pecific antigen above reference range 866003010 R97.20 OV 05/31/2020 :He has seen Dr Valle and is getting lupron shots every 6 monthsHe states that urology checks his PSAIs no longer on any viagra or any ED meds at this time as per his history OV 11/29/2020 :On lupron as per Dr Shadi Valle 12/29/2020 Also on effexor as per urology for 'hot flashes' in the past OV 05/25/2021 :PSA <0.064Does well now OV 10/10/2021 : Does well now OV 02/27/2022 :Sees Dr Stokes OV 08/28/2022 :Keep apt with Dr Stokes OV 02/28/2023 : Sees Dr Stokes Primary er ectile dysfunction [id number] N52.9 On sildenafil 50mg as needed, but this has not helped, s/p radiation Rx for prostate cancer, will refer to urology Seen by Dr Stokes Administra tion of influenza vaccine 02995664 Z23 [id number] Lee lam MD [facility] Christopher escobedo [address] [facility] [address] [place] [address] 09/05/2023 13:50:35 09/05/2023 14:27:32 Screening - NAD 021283504 Z13.9 Colonoscop y: Dr Raniey [facility] 03/15/18, next in one year2020: C-scope: tubular adenoma: Dr Sullivan Get flu shotUTD tdap 01/11/16h ould get shingrix vaccineUTD pneumovax. #13 and #23UTD on COVID 19 vaccineCan do RSV vaccine RTC in 6 monthswith labsand he did verbalize his understand ing of the above Persistent insomnia 1919 85478 G47.09 Now does well on the trazodone 50mg daily, can do 2 tablets if needed and OK to renew 02/28/2023 Hyperlipidemia 58163442 E78.5 On atorvastat in 40mg dailyMore diet and exerciseGe t labs Essential hypertension 89794066 I10 On amlodipine 10mg dailyOn HCTZ 12.5mg daily Does well Restless legs 87045185 G 25.81 Hx of ANJU on CPAP, but he states that he does not use the CPAP as he 'hated it' and 'threw' it away, does not want any more testing Not taking ropinirole 3mg daily Hypothyroidism 23513319 E03.9 On levothyrox ine 25mcgs daily US thyroid 10/10/2021 : Neg Leukopenia 08376297 D72. [address] Noguera last 11/22/2021 Prostate s pecific antigen above reference range 280974418 R97.20 OV 05/31/2020 :He has seen Dr Valle and is getting lupron shots every 6 monthsHe states that urology checks his PSAIs no longer on any viagra or any ED meds at this time as per his history OV 11/29/2020 :On lupron as per Dr Metcalfees Dr Valle 12/29/2020 Also on effexor as per urology for 'hot flashes' in the past OV 05/25/2021 :PSA <0.064Does well now OV 10/10/2021 : Does well now OV 02/27/2022 :Sees Dr Stokes OV 08/28/2022 :Keep apt with Dr Stokes OV 02/28/2023 : Sees Dr Stokes OV 09/05/2023 :See his urologistW ould like to get the PSA thru this office Primary er ectile dysfunction 875486178 N52.9 On sildenafil 50mg as needed, but this has not helped, s/p radiation Rx for prostate cancer, will refer to urology Seen by Dr Stokes Hyperglycemia 28225942 R 73.9 Get labs [id number] Jonathan Alarcon DPM [facility] [place] [address] [place], [place] [address] 09/18/2023 10:47:07 09/18/2023 15:12:54 [id number] MD MEGHAN [facility] [address], [address] 1 10/05/2023 16:09:38 10/05/2023 16:40:10 History of malignant neoplasm of prostate 425278663 Z85.46 [id number] Lee lam MD [facility] [address] [facility] [place] [address] 12/05/2023 13:55:15 12/05/2023 14:42:55 Screening - NAD [id number] Z13.9 Colonoscop y: Dr Rainey [facility] 03/15/18, next in one year2020: C-scope: tubular adenoma: Dr Sullivan Get flu shotUTD tdap 01/11/16h ould get shingrix vaccineUTD pneumovax. #13 and #23UTD on COVID 19 vaccineCan do RSV vaccine RTC in 6 monthswith labsand he did verbalize his understand ing of the above Persistent insomnia 1919 43643 G47.09 Now does well on the trazodone 50mg daily, can do 2 tablets if needed and OK to renew 02/28/2023 Hyperlipidemia 28084270 E78.5 On atorvastat in 40mg dailyMore diet and exerciseGe t labs Essential hypertension 34873130 I10 On amlodipine 10mg dailyOn HCTZ 12.5mg daily Does well Restless legs 71621646 G 25.81 Hx of ANJU on CPAP, but he states that he does not use the CPAP as he 'hated it' and 'threw' it away, does not want any more testing Not taking ropinirole 3mg daily Hypothyroidism 65881896 E03.9 On levothyrox ine 25mcgs daily US thyroid 10/10/2021 : Neg Leukopenia 63046832 D72. [address] Noguera last 11/22/2021 Prostate s pecific antigen above reference range 408697419 R97.20 OV 05/31/2020 :He has seen Dr Valle and is getting lupron shots every 6 monthsHe states that urology checks his PSAIs no longer on any viagra or any ED meds at this time as per his history OV 11/29/2020 :On lupron as per Dr Shadi Valle 12/29/2020 Also on effexor as per urology for 'hot flashes' in the past OV 05/25/2021 :PSA <0.064Does well now OV 10/10/2021 : Does well now OV 02/27/2022 :Sees Dr Stokes OV 08/28/2022 :Keep apt with Dr Stokes OV 02/28/2023 : Sees Dr Stokes OV 09/05/2023 :See his urologistGenaro wood like to get the PSA thru this office OV 12/05/2023 :See urology Primary er ectile dysfunction 308354053 N52.9 On sildenafil 50mg as needed, but this has not helped, s/p radiation Rx for prostate cancer, will refer to urology Seen by Dr Stokes Hyperglycemia 70054868 R 73.9 Get labs Adult heal th examination 807169377 Z00.00 Screening for disorder 062819372 Z13.9 Gastroesop hageal reflux disease without esophagitis 072040142 K21.9 Has noted 'acid reflux' with coffee and alcohol, encouraged to not have these, get EGD done and get on omeprazole as needed Administra tion of influenza vaccine 22958057 Z23 Health Concerns Section Related Observation LastModified by Organization Detai ls LastModified Time None Recorded Concern Status LastModified by Organization Details LastModified Time None Recorded Advance Directives Directive N: Payers Encounter Date Sequence Insurance Name Policy Number Policy Lozano Covered Member ID Lozano Member ID Guarantor Name 02/28/2023 1 [facility] (MEDICARE REPLACEMENT/A DVANTAGE - HMO) [id number] Kiran Martines [id number] Kiran Martines 09/05/2023 1 [facility] (MEDICARE REPLACEMENT/A DVANTAGE - HMO) [id number] Kiran Martines [id number] Kiran Martines 09/18/2023 1 [facility] (MEDICARE REPLACEMENT/A DVANTAGE - HMO) [id number] Kiran Martines [id number] Kiran Martines 10/05/2023 1 [facility] (MEDICARE REPLACEMENT/A DVANTAGE - HMO) [id number] Kiran Martines [id number] Kiran Martines 12/05/2023 1 [facility] (MEDICARE REPLACEMENT/A DVANTAGE - HMO) [id number] Kiran Martines [id number] Kiran Martines Notes Date Note Type Note Provider Name and Address Organization Details Recorded Time 02/28/2023 text/html Last OV: 08/14/16Here to establish carePast Hx:DementiaHypothyro idismBPHRLSReviewed his past social, family and surgical hxHere to obtain labs and states is doing well otherwise.OV 11/29/16:Here for a follow upHe feels that his abd is 'tight', he did lift a heavy refrigator and feels that this was what did it, he did this last weekOV 02/12/17:Here for his routine apt, feels that he is doing well at this time, he did see Dr Yoon and did do a PSA testHe states that his stomach still is 'jumping or pulsating', but no pain, no diarrhea, no blood in the stool, no urinary symptoms, no blood in the urineHis appetite is good, eats well and can hydrate wellOV 02/26/17:Here for his BP check, feels that he is doing wellOV 05/28/17:Here for his routine apt, he states that he is doing well, no complaintsHe did do the labs and is here to discuss theseOV 11/26/17:Here for his routine apt and his MWVHe states that he is doing well at this timeNo recent labs have been doneHe does want a prescription for viagra, he has taken this in the pastOV 03/18/18:Here for his routine aptHe states that he is doing well at this timeHe did do the labs on 03/13/18He would like to get some viagra againOV 06/17/18:Here for his routine aptHe states that he is doing wellHe was recently diagnosed with prostate cancer and is to get radiation therapy he also did do the K level todayOV 10/14/18:Is doing wellHe is to get his radiation for his prostate and is to get the lupron and casodex, wants the refill on the amlodipine and the requipHe also wants to be seen by hand surgeon for a R finger cyst, he is RHD, no trauma, some pain when he 'hits it'OV 02/12/19:Here for his routine aptHe feels wellHe did do the labs on 02/10/19OV 06/11/2019:Here for his telephone apt, he is agreeable to do soHe has not done any labsHe has seen his radiation oncologist and also the hematologistHe feels 'great' had to cancel his [place] trip d/t coronavirusOV 10/27/2019;Here for his routine aptHe did get labsHe also did see Dr Dukes did trip over a log and hurt his R rib cage, [place] [facility] [place] [facility] is also here for his MWVOV 05/31/2020:Here for his routine aptHe is doing 'great'He did do the labsHe would like to refill 'all my medicines'OV 11/29/2020:Here for his routine aptHe feels wellHe does have some 'achyness' in the arms and legs but none now and this is intermittent, feels that this is from his restless legsHe has no recent labsHe is here for his MWV alsoOV 05/25/2021:Here for his routine aptHe is doing wellLabs done on 2OV 10/10/2021:Here for his f/u aptHe did do the labs and US thyroidNo help with the viagra, wants a referral to urologyOV 02/27/2022:Here for his f/u apt, he is doing very well, he did see urology, he has done his labs on 02/20/2022 OV 08/28/2022: Here for his f/u apt, he is feeling very well, he did do the labs OV 02/28/2023: Here for his routine apt, he does well, did do the labs and states that he is very active and infact is out hunting deer Lee Graham MD [address] [facility], [address], [place], [address], [place] [facility] 02/28/2023 18:10:17 09/05/2023 text/html Last OV: 08/14/16Here to establish carePast Hx:DementiaHypothyro idismBPHRLSReviewed his past social, family and surgical hxHere to obtain labs and states is doing well otherwise.OV 11/29/16:Here for a follow upHe feels that his abd is 'tight', he did lift a heavy refrigator and feels that this was what did it, he did this last weekOV 02/12/17:Here for his routine apt, feels that he is doing well at this time, he did see Dr Yoon and did do a PSA testHe states that his stomach still is 'jumping or pulsating', but no pain, no diarrhea, no blood in the stool, no urinary symptoms, no blood in the urineHis appetite is good, eats well and can hydrate wellOV 02/26/17:Here for his BP check, feels that he is doing wellOV 05/28/17:Here for his routine apt, he states that he is doing well, no complaintsHe did do the labs and is here to discuss theseOV 11/26/17:Here for his routine apt and his MWVHe states that he is doing well at this timeNo recent labs have been doneHe does want a prescription for viagra, he has taken this in the pastOV 03/18/18:Here for his routine aptHe states that he is doing well at this timeHe did do the labs on 03/13/18He would like to get some viagra againOV 06/17/18:Here for his routine aptHe states that he is doing wellHe was recently diagnosed with prostate cancer and is to get radiation therapy he also did do the K level todayOV 10/14/18:Is doing wellHe is to get his radiation for his prostate and is to get the lupron and casodex, wants the refill on the amlodipine and the requipHe also wants to be seen by hand surgeon for a R finger cyst, he is RHD, no trauma, some pain when he 'hits it'OV 02/12/19:Here for his routine aptHe feels wellHe did do the labs on 02/10/19OV 06/11/2019:Here for his telephone apt, he is agreeable to do soHe has not done any labsHe has seen his radiation oncologist and also the hematologistHe feels 'great' had to cancel his [place] trip d/t coronavirusOV 10/27/2019;Here for his routine aptHe did get labsHe also did see Dr Dukes did trip over a log and hurt his R rib cage, was [facility] is also here for his MWVOV 05/31/2020:Here for his routine aptHe is doing 'great'He did do the labsHe would like to refill 'all my medicines'OV 11/29/2020:Here for his routine aptHe feels wellHe does have some 'achyness' in the arms and legs but none now and this is intermittent, feels that this is from his restless legsHe has no recent labsHe is here for his MWV alsoOV 05/25/2021:Here for his routine aptHe is doing wellLabs done on 2OV 10/10/2021:Here for his f/u aptHe did do the labs and US thyroidNo help with the viagra, wants a referral to urologyOV 02/27/2022:Here for his f/u apt, he is doing very well, he did see urology, he has done his labs on 02/20/2022 OV 08/28/2022: Here for his f/u apt, he is feeling very well, he did do the labs OV 02/28/2023: Here for his routine apt, he does well, did do the labs and states that he is very active and infact is out hunting deer OV 09/05/2023: Here for his f/u apt, he is doing very well, he has done his labs Lee Graham MD [address], [address], [place], [address], [facility] 09/05/2023 14:34:06 09/18/2023 text/html 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 09/18/2023 14:13:53 10/05/2023 text/html this is a 83-year-old that underwent radiation therapy about 6 years ago for prostate cancer and he has been doing well. His PSA is very low at 0.12. He voids with a good stream He has no problems with frequency or urgency or urinary incontinence He does have hot flashes and he has to get up at night from the night sweats and hot flashes He also had about 2 years of Lupron therapy after his radiation and he has been doing very well So his only complaint is hot flashes and night sweats Rita Barber MD [address], [address], [place], [address], [employer] 10/05/2023 16:50:09 12/05/2023 text/html Last OV: 08/14/16Here to establish carePast Hx:DementiaHypothyro idismBPHRLSReviewed his past social, family and surgical hxHere to obtain labs and states is doing well otherwise.OV 11/29/16:Here for a follow upHe feels that his abd is 'tight', he did lift a heavy refrigator and feels that this was what did it, he did this last weekOV 02/12/17:Here for his routine apt, feels that he is doing well at this time, he did see Dr Yoon and did do a PSA testHe states that his stomach still is 'jumping or pulsating', but no pain, no diarrhea, no blood in the stool, no urinary symptoms, no blood in the urineHis appetite is good, eats well and can hydrate wellOV 02/26/17:Here for his BP check, feels that he is doing wellOV 05/28/17:Here for his routine apt, he states that he is doing well, no complaintsHe did do the labs and is here to discuss theseOV 11/26/17:Here for his routine apt and his MWVHe states that he is doing well at this timeNo recent labs have been doneHe does want a prescription for viagra, he has taken this in the pastOV 03/18/18:Here for his routine aptHe states that he is doing well at this timeHe did do the labs on 03/13/18He would like to get some viagra againOV 06/17/18:Here for his routine aptHe states that he is doing wellHe was recently diagnosed with prostate cancer and is to get radiation therapy he also did do the K level todayOV 10/14/18:Is doing wellHe is to get his radiation for his prostate and is to get the lupron and casodex, wants the refill on the amlodipine and the requipHe also wants to be seen by hand surgeon for a R finger cyst, he is RHD, no trauma, some pain when he 'hits it'OV 02/12/19:Here for his routine aptHe feels wellHe did do the labs on 02/10/19OV 06/11/2019:Here for his telephone apt, he is agreeable to do soHe has not done any labsHe has seen his radiation oncologist and also the hematologistHe feels 'great' had to cancel his [place] trip d/t coronavirusOV 10/27/2019;Here for his routine aptHe did get labsHe also did see Dr Dukes did trip over a log and hurt his R rib cage, was [facility] is also here for his MWVOV 05/31/2020:Here for his routine aptHe is doing 'great'He did do the labsHe would like to refill 'all my medicines'OV 11/29/2020:Here for his routine aptHe feels wellHe does have some 'achyness' in the arms and legs but none now and this is intermittent, feels that this is from his restless legsHe has no recent labsHe is here for his MWV alsoOV 05/25/2021:Here for his routine aptHe is doing wellLabs done on 2OV 10/10/2021:Here for his f/u aptHe did do the labs and US thyroidNo help with the viagra, wants a referral to urologyOV 02/27/2022:Here for his f/u apt, he is doing very well, he did see urology, he has done his labs on 02/20/2022 OV 08/28/2022: Here for his f/u apt, he is feeling very well, he did do the labs OV 02/28/2023: Here for his routine apt, he does well, did do the labs and states that he is very active and infact is out hunting deer OV 09/05/2023: Here for his f/u apt, he is doing very well, he has done his labsOV 12/05/2023: Here for his f/u apt and his MWV, he is doing well today Lee Graham MD [address], [address], [place], [address], [place] [facility] 12/10/2023 15:34:00
== END 2024-04-02 11:55 | disposition home or self-care (01) ==
LOC: ANHLAB 11:56
PROVIDERS: PCP Internal Medicine; Visit Provider Internal Medicine Hematology & Oncology
DX: E78.5 Hyperlipidemia, unspecified (principal); R73.9 Hyperglycemia, unspecified
CPT/HCPCS: 36415; 80053; 80061; 82043; 82607; 82746; 83036; 84153; 84439; 84443; 85025

== ENCOUNTER 2024-07-02 09:36 | Outpatient (CLI) | payer MEDICARE, SELFPAY ==
[2024-07-02 09:54] LABS: Basophils Percent Auto 0.5 % (0.2-1.2); Eosinophils Absolute Auto 0.2 K/mm3 (0-0.3); Eosinophils Percent Auto 4.5 % (0-4.4); Hematocrit 42.7 % (42.0-52.0); Hemoglobin 15.2 g/dL (14.0-18.0); Immature Granulocyte Absolute 0.01 K/mm3 (0.00-0.031); Immature Granulocyte Percent A 0.2 % (0-0.5); Lymphocytes Absolute Auto 1.14 K/mm3 (0.9-3.2); Lymphocytes Percent Auto 25.7 % (18.3-44.2); Mean Corpuscular HGB Conc 35.6 g/dl (32-36); Mean Corpuscular Hemoglobin 32.3 pg (26-34); Mean Corpuscular Volume 90.7 fl (80-100); Mean Platelet Volume 8.7 fl (7.4-10.4); Monocytes Absolute Auto 0.6 K/mm3 (0.1-0.6); Monocytes Percent Auto 12.4 % (2.6-8.5); Neutrophils Absolute Auto 2.5 K/mm3 (1.3-6.7); Neutrophils Percent Auto 56.7 % (45.5-73.1); Platelet Count Result 249 k/mm3 (150-375); Red Blood Count 4.71 M/mm3 (4.6-6.20); Red Cell Distribution Width 12.3 % (11.5-14.5); White Blood Count 4.4 K/mm3 (4.5-10.0)
--- OUTSIDE RECORDS SUMMARY | 2024-07-02 10:40 | XMS_ITS | Data Portability ---
Author Organization [place] [facility] [employer], Main Office Address [address] [place] [address] Care Team Providers Care Rn Supplemental Name Role Phone LEE GRAHAM Primary Care Provider LEE GRAHAM Referring Provider BRETT NOGUERA Hematology/Oncology JONATHAN ALARCON Senior Policy Advisor MAYTE Supervisor Stripping RITA BARBER Urologist Assessment Encounter Date Assessment Date Assessment LastModified by Organization Details LastModified Time 12/05/2023 12/05/2023 05/22/2022: Dr Stokes PSA 08/21/2022: Gluc 185 WBC 3.6L 12/04/2022: A1C 5.4 02/21/2023: Gluc 152 TG 167 08/29/2023: Gluc 110, glob 2.4, TP WNL Lipids/CBC: WNL 11/27/2023: PSA 0.21 Gluc 111, BUN 20 TG 162 WBC 3.9 Not available 12/04/2023 18:55:19 04/09/2024 04/09/2024 05/22/2022: Dr Stokes PSA 08/21/2022: Gluc 185 WBC 3.6L 12/04/2022: A1C 5.4 02/21/2023: Gluc 152 TG 167 08/29/2023: Gluc 110, glob 2.4, TP WNL Lipids/CBC: WNL 11/27/2023: PSA 0.21 Gluc 111, BUN 20 TG 162 WBC 3.9 04/02/2024: PSA 0.1 A1C 5.8 Not available 04/09/2024 11:36:26 Plan of Treatment Reminders Order Date Submit Date Provider Last Modified By Organization Details Last Modified Time Details Appointments Follow Up 15 2024 09:30A M Lee whitten MD Not available Not available Not available Lab microalbu min, urine 2024 025 [facility] (Lab), [address] [place], [address], 04/14/2024 17:00:55 glycohemo globin, total, blood 2024 025 [facility] (Lab), [address] [place], [address], 04/14/2024 17:00:55 lipid panel, serum 2024 025 [facility] (Lab), [address] [place], [address], 04/14/2024 17:00:54 CMP, serum or plasma 2024 025 [facility] (Lab), [address] [place], [address], 04/14/2024 17:00:54 TSH, serum or plasma 2024 025 [facility] (Lab), [address] [place], [address], 04/14/2024 17:00:55 CBC w/ auto diff 2024 025 [facility] (Lab), [address] [place], [address], 04/14/2024 17:00:55 T4, free, serum 2024 025 [facility] (Lab), [address] [place], [address], 04/14/2024 17:00:55 lipid panel, serum [address], [address] [place], [address], 06/04/2024 08:19:47 CMP, serum or plasma [address], [address] [place], [address], 06/04/2024 08:19:47 TSH, serum or plasma [address], [address] [place], [address], 06/04/2024 08:19:48 CBC w/ auto diff 2023 024 [facility], [address] [place], [address], 04/02/2024 16:03:45 T4, free, serum [address], [address] [place], [address], 06/04/2024 08:19:48 microalbu min, urine 2023 024 [facility], [address] [place], [address], 2024 04:05:35 glycohemo globin, total, blood 2023 024 [facility], [address] [place], [address], 04/02/2024 23:34:43 Referral podiatris t referral - Please call patient to schedule an appointme nt. Thank you. 2024 025 VALERY Gonzalez DPM, [address], [address], [place], [address], 04/15/2024 09:07:14 urologist referral - pt seen by Dr. Barber on 04-09-20242024 025 [email or web address] Rita Barber, [address] [facility], [facility] [address], [place], [address], 04/11/2024 11:20:07 podiatris t referral 2023 024 Da Gonzalez DPM, [address] [facility], [address], [place], [address], 01/02/2024 08:23:46 urologist referral 2023 024 [email or web address] Rita Barber, [address] [facility], [facility], [place], [address], 01/02/2024 08:23:46 hematolog ist referral 2023 024 [email or web address] [id number] Brett Noguera MD, [address], [place], [address], 06/02/2024 08:31:08 Procedures upper endoscopy procedure (EGD) (PROC) - Please call patient to schedule an appointme nt. Thank you. 2024 025 RISHI Silverio MD, [address] [facility] [address], [facility] [address], [place], [address], 04/14/2024 18:55:23 upper endoscopy procedure (EGD) (PROC) 2023 024 [email or web address] Sunny Silverio MD, [address] [facility] [address], [facility] [address], [place], [address], 2024 08:44:55 Surgeries None recorded. Imaging None recorded. Medication Orders omeprazol e 20 mg capsule,d elayed release [address] [facility] [facility], [address], 12/05/2023 14:36:49 Patient TargetsNo targets recorded. Patient Instructions Encounter Date Encounter Id Patient Instructions Last Modified By Organization Details Last Modified Time 10/05/2023 [id number] plan 1. I told him he could [...] after that but maybe once a year Not available 10/05/2023 16:49:02 12/05/2023 [id number] dementia rating scale-2* [email or web address] Not available 12/05/2023 14:36:42 alcohol misuse* [email or web address] 2 Not available 12/05/2023 14:36:42 depression screening* [email or web address] 2 Not available 12/05/2023 14:36:42 Timed Up and Go test (TUG)* [email or web address] 2 Not available 12/05/2023 14:36:41 multi-dimensiona l health assessment questionnaire* [email or web address] 2 Not available 12/05/2023 14:36:42 advance care planning: care instructions [email or web address] 2 Not available 12/05/2023 14:36:41 advance directiv es: care instructions [email or web address] 2 Not available 12/05/2023 14:36:41 [place] Advance Directives [email or web address] 2 Not available 12/05/2023 14:36:42 diabetic eye exam* [email or web address] Not avail able 06/02/2024 08:30:56 [facility] Plan and Screening Recommendations Advance Directives - Do you have one? No You have indicated that you are capable [...] 10% of your body weight Physical activity: Need more exercise/physical activity decrease sitting time to no more than 5hr/day Nutrition: Good Average Refer to attached handout Heart-Healthy Diet: After Your Visit Fall Risk (screened today): Low Intermediate Refer to attached handout Preventing Falls: After your Visit Vaccines Pneumococcal: Ordered Recommended today Recommended today, but you have declined No further needed Influenza: Your next one in the fall of this year Chronic Disease Risks Stroke: Low Risk Intermediate Risk Heart Attack: Low risk Intermediate Risk Clogging of the Arteries: Low risk Intermediate Risk Diabetes: Low Risk I have no recommendations Secondary Prevention/Interven tion (detects treatable diseases before they may cause symptoms, disability, or ) Prostate Cancer Screening: No PSA screening necessary Colon Cancer Screening: No screening necessary Date Screening Last Performed:2020 Eye Disease Screening: Ordered Recommended today Dementia Risk: Low Intermediate I have no recommendations Depression Screening: Negative Active diagnosis, Continue current treatment plan [email or web address] Not available 12/05/2023 14:40:49 04/09/2024 [id number] 1. His PSA is considered a cure 2. It his age and the fact his PSA is less than 0.5 which is what she would like to see after radiation therapy so no further workup or follow up as necessary Not available 04/09/2024 16:52:10 Reason for Referral Referring Physician: Lee Graham Internal Medicine, Encounter Date: 12/05/2023 Urologist Referral for Prost ate specific antigen above reference range Referring Physician: Lee Graham Internal Medicine, Encounter Date: 12/05/2023 Senior Policy Advisor Referral for Hype rglycemia Referring Physician: Lee Graham Internal Medicine, Encounter Date: 12/05/2023 Urologist Referral for Prost ate specific antigen above reference range pt seen by Dr. Barber on 04-09-2024 Referring Physician: Lee Graham Internal Medicine, Encounter Date: 04/09/2024 Senior Policy Advisor Referral for Hype rglycemia Please call patient to schedule an appointment. Thank you. Referring Physician: Lee Graham Internal Medicine, Encounter Date: 04/09/2024 Results Created Date Observation Date Name Description Value Unit Range Abnormal Flag Note LastModifiedBy Organization Detail LastModifiedTime 08/29/19 24 08/29/2023 CBC/C OMPLE TE BLD COUNT W/DIF F white blood cells 4.5 x10'3 /uL 4.2-10 .8 Not Available [facility] (Lab) [address] [place], [address], 08/29/2023 13:15:44 08/29/19 24 08/29/2023 CBC/C OMPLE TE BLD COUNT W/DIF F red blood cells 4.93 x10'6 /uL 4.10-5 .80 Not Available [facility] (Lab) [address] [place], [address], 08/29/2023 13:15:44 08/29/19 24 08/29/2023 CBC/C OMPLE TE BLD COUNT W/DIF F hemoglobin 16.3 g/dL 13.2-1 7.0 Not Available [facility] (Lab) [address] [place], [address], 08/29/2023 13:15:44 08/29/19 24 08/29/2023 CBC/C OMPLE TE BLD COUNT W/DIF F hematocrit 46.4 % 39.3-5 0.0 Not Available [facility] (Lab) [address] [place], [address], 08/29/2023 13:15:44 08/29/19 24 08/29/2023 CBC/C OMPLE TE BLD COUNT W/DIF F mean red cell volume 94.1 fL 80.0-9 7.0 Not Available [facility] (Lab) [address] [place], [address], 08/29/2023 13:15:44 08/29/19 24 08/29/2023 CBC/C OMPLE TE BLD COUNT W/DIF F mean red cell hemoglobin 33.1 pg 27.0-3 3.0 high Not Available [facility] (Lab) [address] [place], [address], 08/29/2023 13:15:44 08/29/19 24 08/29/2023 CBC/C OMPLE TE BLD COUNT W/DIF F mean RBC HGB concentratio n 35.1 g/dL 31.0-3 6.0 Not Available [facility] (Lab) [address] [place], [address], 08/29/2023 13:15:44 08/29/19 24 08/29/2023 CBC/C OMPLE TE BLD COUNT W/DIF F red cell distribution width 12.3 % 11.8-1 5.5 Not Available [facility] (Lab) [address] [place], [address], 08/29/2023 13:15:44 08/29/19 24 08/29/2023 CBC/C OMPLE TE BLD COUNT W/DIF F platelets 239 x10'3 /uL 150-40 0 Not Available [facility] (Lab) [address] [place], [address], 08/29/2023 13:15:44 08/29/19 24 08/29/2023 CBC/C OMPLE TE BLD COUNT W/DIF F mean platelet volume 9.9 fL 9.0-12 .4 Not Available [facility] (Lab) [address] [place], [address], 08/29/2023 13:15:44 08/29/19 24 08/29/2023 CBC/C OMPLE TE BLD COUNT W/DIF F neutrophils 65.1 % 39.0-7 2.0 Not Available [facility] (Lab) [address] [place], [address], 08/29/2023 13:15:44 08/29/19 24 08/29/2023 CBC/C OMPLE TE BLD COUNT W/DIF F lymphocytes 22.9 % 16.0-4 7.0 Not Available [facility] (Lab) [address] [place], [address], 08/29/2023 13:15:44 08/29/19 24 08/29/2023 CBC/C OMPLE TE BLD COUNT W/DIF F monocytes 8.0 % 5.0-12 .0 Not Available [facility] (Lab) [address] [place], [address], 08/29/2023 13:15:44 08/29/19 24 08/29/2023 CBC/C OMPLE TE BLD COUNT W/DIF F eosinophils 3.1 % 1.0-7. 0 Not Available [facility] (Lab) [address] [place], [address], 08/29/2023 13:15:44 08/29/19 24 08/29/2023 CBC/C OMPLE TE BLD COUNT W/DIF F basophils 0.7 % 0.0-2. 0 Not Available [facility] (Lab) [address] [place], [address], 08/29/2023 13:15:44 08/29/19 24 08/29/2023 CBC/C OMPLE TE BLD COUNT W/DIF F immature granulocytes 0.2 % 0.00-0 .50 Not Available [facility] (Lab) [address] [place], [address], 08/29/2023 13:15:44 08/29/19 24 08/29/2023 CBC/C OMPLE TE BLD COUNT W/DIF F neutrophils, absolute count 2.92 x10'3 /uL 1.5-8. 0 Not Available [facility] (Lab) [address] [place], [address], 08/29/2023 13:15:44 08/29/19 24 08/29/2023 CBC/C OMPLE TE BLD COUNT W/DIF F lymphocytes, absolute count 1.03 x10'3 /uL 1.07-3 .43 low Not Available [facility] (Lab) [address] [place], [address], 08/29/2023 13:15:44 08/29/19 24 08/29/2023 CBC/C OMPLE TE BLD COUNT W/DIF F monocytes, absolute count 0.36 x10'3 /uL 0.29-0 .99 Not Available [facility] (Lab) [address] [place], [address], 08/29/2023 13:15:44 08/29/19 24 08/29/2023 CBC/C OMPLE TE BLD COUNT W/DIF F eosinophils, absolute count 0.14 x10'3 /uL 0.02-0 .53 Not Available [facility] (Lab) [address] [place], [address], 08/29/2023 13:15:44 08/29/19 24 08/29/2023 CBC/C OMPLE TE BLD COUNT W/DIF F basophils, absolute count 0.03 x10'3 /uL 0.01-0 .08 Not Available [facility] (Lab) [address] [place], [address], 08/29/2023 13:15:44 08/29/19 24 08/29/2023 CBC/C OMPLE TE BLD COUNT W/DIF F immature granulocytes ,absolute 0.01 x10'3 /uL 0.00-0 .05 Not Available [facility] (Lab) [address] [place], [address], 08/29/2023 13:15:44 08/29/19 24 08/29/2023 CBC/C OMPLE TE BLD COUNT W/DIF F nucleated red blood cells 0.0 % -0 Not Available [facility] (Lab) [address] [place], [address], 08/29/2023 13:15:44 08/29/19 24 08/29/2023 CBC/C OMPLE TE BLD COUNT W/DIF F NRBC# 0.00 x10'3 /uL Not Available [facility] (Lab) [address] [place], [address], 08/29/2023 13:15:44 08/29/19 24 08/29/2023 LIPID PANEL cholesterol 172 mg/dL 140-19 9 NIH BISMARK NSUS RECOM MENDA TION FOR STANFORD STERO L: ADULT CHILD LOW RISK: <200 <170 BORDE RLINE : <200- 239 ----- HIGH RISK: >240 >200 Not Available [facility] (Lab) [address] [place], [address], 08/29/2023 15:48:07 08/29/19 24 08/29/2023 LIPID PANEL triglyceride s 117 mg/dL 0-150 NIH BISMARK NSUS REPOR T RECOM MENDA TION FOR TRIGL YCERI PELON: ADULT CHILD LOW RISK: <150 ----- BODER LINE: 150-1 99 ----- HIGH RISK: >200 ----- Not Available [facility] (Lab) [address] [place], [address], 08/29/2023 15:48:07 08/29/19 24 08/29/2023 LIPID PANEL HDL cholesterol 75 mg/dL 40- Not Available [facility] (Lab) [address] [place], [address], 08/29/2023 15:48:07 08/29/19 24 08/29/2023 LIPID PANEL [...] WILL NOT BE REPOR TAISHA. Not Available [facility] (Lab) [address] [place], [address], 08/29/2023 15:48:07 08/29/19 24 08/29/2023 COMPR EHENS ALMA METAB OLIC PANEL sodium 134 mmol/ L 137-14 5 low Not Available [facility] (Lab) [address] [place], [address], 08/29/2023 15:48:13 08/29/19 24 08/29/2023 COMPR EHENS ALMA METAB OLIC PANEL potassium 4.5 mmol/ L 3.5-5. 1 Not Available [facility] (Lab) [address] [place], [address], 08/29/2023 15:48:13 08/29/19 24 08/29/2023 COMPR EHENS ALMA METAB OLIC PANEL chloride 105 mmol/ L 98-107 Not Available [facility] (Lab) [address] [place], [address], 08/29/2023 15:48:13 08/29/19 24 08/29/2023 COMPR EHENS ALMA METAB OLIC PANEL carbon dioxide 26 mmol/ L 22-30 Not Available [facility] (Lab) [address] [place], [address], 08/29/2023 15:48:13 08/29/19 24 08/29/2023 COMPR EHENS ALMA METAB OLIC PANEL anion gap 7.5 mmol/ L 14-22 low Not Available [facility] (Lab) [address] [place], [address], 08/29/2023 15:48:13 08/29/19 24 08/29/2023 COMPR EHENS ALMA METAB OLIC PANEL glucose 110 mg/dL 70-99 high Not Available [facility] (Lab) [address] [place], [address], 08/29/2023 15:48:13 08/29/19 24 08/29/2023 COMPR EHENS ALMA METAB OLIC PANEL BUN 17 mg/dL 8-19 Not Available [facility] (Lab) [address] [facility] [place], [address], 08/29/2023 15:48:13 08/29/19 24 08/29/2023 COMPR EHENS ALMA METAB OLIC PANEL creatinine 0.90 mg/dL 0.66-1 .25 Not Available [facility] (Lab) [address] [place], [address], 08/29/2023 15:48:13 08/29/19 24 08/29/2023 COMPR EHENS ALMA METAB OLIC PANEL GFR >60 Refer ence Range : Riner ge GFR Healt hy Adult : >60 [...] or ethni c subgr oups, such as [facility] nics. Outsi de the valid ated lynne [...] calcu lator is avail able on the [facility] websi te: https :[email or web address] wdorina foster.o rg/pr ofess ional s/kdo qi/gf r_cal culat or Not Available [facility] (Lab) [address] [place], [address], 08/29/2023 15:48:13 08/29/19 24 08/29/2023 COMPR EHENS ALMA METAB OLIC PANEL alkaline phosphatase 95 U/L 38-126 Not Available [facility] (Lab) [address] [place], [address], 08/29/2023 15:48:13 08/29/19 24 08/29/2023 COMPR EHENS ALMA METAB OLIC PANEL alanine aminotransfe rase 31 U/L 0-50 Not Available [facility] (Lab) [address] [place], [address], 08/29/2023 15:48:13 08/29/19 24 08/29/2023 COMPR EHENS ALMA METAB OLIC PANEL aspartate aminotransfe rase 34 U/L 15-46 Not Available [facility] (Lab) [address] [place], [address], 08/29/2023 15:48:13 08/29/19 24 08/29/2023 COMPR EHENS ALMA METAB OLIC PANEL bilirubin, total 1.10 mg/dL 0.20-1 .30 Not Available [facility] (Lab) [address] [place], [address], 08/29/2023 15:48:13 08/29/19 24 08/29/2023 COMPR EHENS ALMA METAB OLIC PANEL calcium 9.1 mg/dL 8.4-10 .2 Not Available [facility] (Lab) [address] [place], [address], 08/29/2023 15:48:13 08/29/19 24 08/29/2023 COMPR EHENS ALMA METAB OLIC PANEL total protein 6.7 g/dL 6.3-8. 2 Not Available [facility] (Lab) [address] [place], [address], 08/29/2023 15:48:13 08/29/19 24 08/29/2023 COMPR EHENS ALMA METAB OLIC PANEL albumin 4.3 g/dL 3.0-4. 4 Not Available [facility] (Lab) [address] [place], [address], 08/29/2023 15:48:13 08/29/19 24 08/29/2023 COMPR EHENS ALMA METAB OLIC PANEL globulin 2.4 g/dL 2.6-4. 2 low Not Available [facility] (Lab) [address] [place], [address], 08/29/2023 15:48:13 08/29/19 24 08/29/2023 COMPR EHENS ALMA METAB OLIC PANEL A/G ratio 1.8 ratio 1.0-2. 0 Not Available [facility] (Lab) [address] [place], [address], 08/29/2023 15:48:13 08/29/19 24 08/29/2023 T4 FREE free T4 1.26 NG/dL 0.78-2 .19 Not Available [facility] (Lab) [address] [place], [address], 08/29/2023 16:01:18 08/29/19 24 08/29/2023 TSH thyroid-stim ulating hormone 0.835 uIU/m L 0.465- 4.680 Not Available [facility] (Lab) [address] [place], [address], 08/29/2023 16:11:53 09/11/19 24 09/11/2023 MICRO ALBUM IN RANDO M URINE microalbumin , urine 32.3 mg/L 0.0-16 .6 high Not Available [facility] (Lab) [address] [place], [address], 09/11/2023 20:13:50 09/11/19 24 09/11/2023 HEMOG LOBIN A1C HA1C 5.5 % 4.0-6. 0 Diabe maddie Scree leila Crite antionette: <5.7% Consi stent with absen ce of diabe maddie 5.7-6 .4% Consi stent with incre ased risk for diabe maddie (pred iabet es) >OR=6 .5% Consi stent with diabe maddie REFER ENCE: Diabe maddie Care 2016, 39(Zuluaga ppl.1 ):s13 -s22 Not Available [facility] ([facility]) [address] [facility] [place], [address], 09/11/2023 21:26:15 10/05/19 24 10/05/2023 urina lysis , dipst ick Color Yellow Not Available [facility] [place] [address] [facility], [place], [address], 10/05/2023 16:24:11 10/05/19 24 10/05/2023 urina lysis , dipst ick Appearance Clear Not Available [facility] [place] [address] [facility], [place], [address], 10/05/2023 16:24:11 10/05/19 24 10/05/2023 urina lysis , dipst ick Glucose (reference range: negative mg/dl) Negati ve Not Available [facility] [place] [address] [facility], [place], [address], 10/05/2023 16:24:11 10/05/19 24 10/05/2023 urina lysis , dipst ick Bilirubin (reference range: negative mg/dl) Negati ve Not Available [facility] [place] [address] [facility] [address], [place], [address], 10/05/2023 16:24:11 10/05/19 24 10/05/2023 urina lysis , dipst ick Ketone (reference range: negative mg/dl) Negati ve Not Available [facility] [place] [address] [place] [address] [address], [place], [address], 10/05/2023 16:24:11 10/05/19 24 10/05/2023 urina lysis , dipst ick Specific [place] (reference range: 1.005-1.030) 1.015 Not Available [facility] [place] [address] [place] [address] [address], [place], [address], 10/05/2023 16:24:11 10/05/19 24 10/05/2023 urina lysis , dipst ick Blood (reference range: negative Trev/ l) Negati ve Not Available [facility] [place] [address] [place] [address] [address], [place], [address], 10/05/2023 16:24:11 10/05/19 24 10/05/2023 urina lysis , dipst ick pH (reference range: 5-7) 7.0 Not Available [facility] [place] [address] [place] [address] [address], [place], [address], 10/05/2023 16:24:11 10/05/19 24 10/05/2023 urina lysis , dipst ick Protein (reference range: negative mg/dl) Negati ve Not Available [facility] [place] [address] [place] [address] [address], [place], [address], 10/05/2023 16:24:11 10/05/19 24 10/05/2023 urina lysis , dipst ick Urobilinogen (reference range: 0.2-1 mg/dl) 0.2 Not Available [facility] [place] [address] [place] [address] [address], [place], [address], 10/05/2023 16:24:11 10/05/19 24 10/05/2023 urina lysis , dipst ick Nitrite (reference rage: negative mg/dl) negati ve Not Available [facility] [place] [address], [place], [address], 10/05/2023 16:24:11 10/05/19 24 10/05/2023 urina lysis , dipst ick Leukocytes (reference range: negative rama/ l) Small Not Available [facility] [place] [address], [place], [address], 10/05/2023 16:24:11 11/27/19 24 11/27/2023 CBC/C OMPLE TE BLD COUNT W/DIF F white blood cells 3.9 x10'3 /uL 4.2-10 .8 low Not Available [facility] (Lab) [address] [place], [address], 11/27/2023 13:19:35 11/27/19 24 11/27/2023 CBC/C OMPLE TE BLD COUNT W/DIF F red blood cells 4.75 x10'6 /uL 4.10-5 .80 Not Available [facility] (Lab) [address] [place], [address], 11/27/2023 13:19:35 11/27/19 24 11/27/2023 CBC/C OMPLE TE BLD COUNT W/DIF F hemoglobin 15.6 g/dL 13.2-1 7.0 Not Available [facility] (Lab) [address] [place], [address], 11/27/2023 13:19:35 11/27/19 24 11/27/2023 CBC/C OMPLE TE BLD COUNT W/DIF F hematocrit 45.3 % 39.3-5 0.0 Not Available [facility] (Lab) [address] [place], [address], 11/27/2023 13:19:35 11/27/19 24 11/27/2023 CBC/C OMPLE TE BLD COUNT W/DIF F mean red cell volume 95.4 fL 80.0-9 7.0 Not Available [facility] (Lab) [address] [place], [address], 11/27/2023 13:19:35 11/27/19 24 11/27/2023 CBC/C OMPLE TE BLD COUNT W/DIF F mean red cell hemoglobin 32.8 pg 27.0-3 3.0 Not Available [facility] (Lab) [address] [place], [address], 11/27/2023 13:19:35 11/27/19 24 11/27/2023 CBC/C OMPLE TE BLD COUNT W/DIF F mean RBC HGB concentratio n 34.4 g/dL 31.0-3 6.0 Not Available [facility] (Lab) [address] [place], [address], 11/27/2023 13:19:35 11/27/19 24 11/27/2023 CBC/C OMPLE TE BLD COUNT W/DIF F red cell distribution width 12.5 % 11.8-1 5.5 Not Available [facility] (Lab) [address] [place], [address], 11/27/2023 13:19:35 11/27/19 24 11/27/2023 CBC/C OMPLE TE BLD COUNT W/DIF F platelets 256 x10'3 /uL 150-40 0 Not Available [facility] (Lab) [address] [facility] [place], [address], 11/27/2023 13:19:35 11/27/19 24 11/27/2023 CBC/C OMPLE TE BLD COUNT W/DIF F mean platelet volume 9.7 fL 9.0-12 .4 Not Available [facility] (Lab) [address] [place], [address], 11/27/2023 13:19:35 11/27/19 24 11/27/2023 CBC/C OMPLE TE BLD COUNT W/DIF F neutrophils 60.9 % 39.0-7 2.0 Not Available [facility] (Lab) [address] [place], [address], 11/27/2023 13:19:35 11/27/19 24 11/27/2023 CBC/C OMPLE TE BLD COUNT W/DIF F lymphocytes 24.1 % 16.0-4 7.0 Not Available [facility] (Lab) [address] [place], [address], 11/27/2023 13:19:35 11/27/19 24 11/27/2023 CBC/C OMPLE TE BLD COUNT W/DIF F monocytes 11.4 % 5.0-12 .0 Not Available [facility] (Lab) [address] [place], [address], 11/27/2023 13:19:35 11/27/19 24 11/27/2023 CBC/C OMPLE TE BLD COUNT W/DIF F eosinophils 2.8 % 1.0-7. 0 Not Available [facility] ([facility]) [address] [place], [address], 11/27/2023 13:19:35 11/27/19 24 11/27/2023 CBC/C OMPLE TE BLD COUNT W/DIF F basophils 0.5 % 0.0-2. 0 Not Available [facility] ([facility]) [address] [place], [address], 11/27/2023 13:19:35 11/27/19 24 11/27/2023 CBC/C OMPLE TE BLD COUNT W/DIF F immature granulocytes 0.3 % 0.00-0 .50 Not Available [facility] ([facility]) [address] [place], [address], 11/27/2023 13:19:35 11/27/19 24 11/27/2023 CBC/C OMPLE TE BLD COUNT W/DIF F neutrophils, absolute count 2.40 x10'3 /uL 1.5-8. 0 Not Available [facility] (Lab) [address] [place], [address], 11/27/2023 13:19:35 11/27/19 24 11/27/2023 CBC/C OMPLE TE BLD COUNT W/DIF F lymphocytes, absolute count 0.95 x10'3 /uL 1.07-3 .43 low Not Available [facility] (Lab) [address] [place], [address], 11/27/2023 13:19:35 11/27/19 24 11/27/2023 CBC/C OMPLE TE BLD COUNT W/DIF F monocytes, absolute count 0.45 x10'3 /uL 0.29-0 .99 Not Available [facility] (Lab) [address] [place], [address], 11/27/2023 13:19:35 11/27/19 24 11/27/2023 CBC/C OMPLE TE BLD COUNT W/DIF F eosinophils, absolute count 0.11 x10'3 /uL 0.02-0 .53 Not Available [facility] (Lab) [address] [place], [address], 11/27/2023 13:19:35 11/27/19 24 11/27/2023 CBC/C OMPLE TE BLD COUNT W/DIF F basophils, absolute count 0.02 x10'3 /uL 0.01-0 .08 Not Available [facility] (Lab) [address] [place], [address], 11/27/2023 13:19:35 11/27/19 24 11/27/2023 CBC/C OMPLE TE BLD COUNT W/DIF F immature granulocytes ,absolute 0.01 x10'3 /uL 0.00-0 .05 Not Available [facility] (Lab) [address] [place], [address], 11/27/2023 13:19:35 11/27/19 24 11/27/2023 CBC/C OMPLE TE BLD COUNT W/DIF F nucleated red blood cells 0.0 % -0 Not Available [facility] (Lab) [address] [place], [address], 11/27/2023 13:19:35 11/27/19 24 11/27/2023 CBC/C OMPLE TE BLD COUNT W/DIF F NRBC# 0.00 x10'3 /uL Not Available [facility] (Lab) [address] [place], [address], 11/27/2023 13:19:35 11/27/19 24 11/27/2023 LIPID PANEL cholesterol 183 mg/dL 140-19 9 NIH BISMARK NSUS RECOM MENDA TION FOR STANFORD STERO L: ADULT CHILD LOW RISK: <200 <170 BORDE RLINE : <200- 239 ----- HIGH RISK: >240 >200 Not Available [facility] (Lab) [address] [place], [address], 11/27/2023 14:31:52 11/27/19 24 11/27/2023 LIPID PANEL triglyceride s 162 mg/dL 0-150 high NIH BISMARK NSUS REPOR T RECOM MENDA TION FOR TRIGL YCERI PELON: ADULT CHILD LOW RISK: <150 ----- BODER LINE: 150-1 99 ----- HIGH RISK: >200 ----- Not Available [facility] (Lab) [address] [place], [address], 11/27/2023 14:31:52 11/27/19 24 11/27/2023 LIPID PANEL HDL cholesterol 76 mg/dL 40- Not Available [facility] (Lab) [address] [place], [address], 11/27/2023 14:31:52 11/27/1911/27/2023 LIPID PANEL LDL cholesterol, calculated 75 mg/dL [...] WILL NOT BE REPOR TAISHA. Not Available [facility] (Lab) [address] [place], [address], 11/27/2023 14:31:52 11/27/19 24 11/27/2023 COMPR EHENS ALMA METAB OLIC PANEL sodium 135 mmol/ L 137-14 5 low Not Available [facility] (Lab) [address] [place], [address], 11/27/2023 14:32:04 11/27/19 24 11/27/2023 COMPR EHENS ALMA METAB OLIC PANEL potassium 4.3 mmol/ L 3.5-5. 1 Not Available [facility] (Lab) [address] [place], [address], 11/27/2023 14:32:04 11/27/19 24 11/27/2023 COMPR EHENS ALMA METAB OLIC PANEL chloride 102 mmol/ L 98-107 Not Available [facility] (Lab) [address] [place], [address], 11/27/2023 14:32:04 11/27/19 24 11/27/2023 COMPR EHENS ALMA METAB OLIC PANEL carbon dioxide 28 mmol/ L 22-30 Not Available [facility] (Lab) [address] [place], [address], 11/27/2023 14:32:04 11/27/19 24 11/27/2023 COMPR EHENS ALMA METAB OLIC PANEL anion gap 9.3 mmol/ L 14-22 low Not Available [facility] (Lab) [address] [place], [address], 11/27/2023 14:32:04 11/27/19 24 11/27/2023 COMPR EHENS ALMA METAB OLIC PANEL glucose 111 mg/dL 70-99 high Not Available [facility] (Lab) [address] [place], [address], 11/27/2023 14:32:04 11/27/19 24 11/27/2023 COMPR EHENS ALMA METAB OLIC PANEL BUN 20 mg/dL 8-19 high Not Available [facility] (Lab) [address] [place], [address], 11/27/2023 14:32:04 11/27/19 24 11/27/2023 COMPR EHENS ALMA METAB OLIC PANEL creatinine 0.86 mg/dL 0.66-1 .25 Not Available [facility] (Lab) [address] [place], [address], 11/27/2023 14:32:04 11/27/19 24 11/27/2023 COMPR EHENS ALMA METAB OLIC PANEL GFR >60 Refer ence Range : Riner ge GFR Healt hy Adult : >60 [...] calcu lator is avail able on the [facility] websi te: https ://ww w.kid cristian.o rg/pr ofess ional s/kdo qi/gf r_cal culat or Not Available [facility] (Lab) [address] [place], [address], 11/27/2023 14:32:04 11/27/19 24 11/27/2023 COMPR EHENS ALMA METAB OLIC PANEL alkaline phosphatase 102 U/L 38-126 Not Available [facility] (Lab) [address] [place], [address], 11/27/2023 14:32:04 11/27/19 24 11/27/2023 COMPR EHENS ALMA METAB OLIC PANEL alanine aminotransfe rase 21 U/L 0-50 Not Available [facility] (Lab) [address] [place], [address], 11/27/2023 14:32:04 11/27/19 24 11/27/2023 COMPR EHENS ALMA METAB OLIC PANEL aspartate aminotransfe rase 27 U/L 15-46 Not Available [facility] (Lab) [address] [place], [address], 11/27/2023 14:32:04 11/27/19 24 11/27/2023 COMPR EHENS ALMA METAB OLIC PANEL bilirubin, total 0.90 mg/dL 0.20-1 .30 Not Available [facility] (Lab) [address] [place], [address], 11/27/2023 14:32:04 11/27/19 24 11/27/2023 COMPR EHENS ALMA METAB OLIC PANEL calcium 9.2 mg/dL 8.4-10 .2 Not Available [facility] (Lab) [address] [place], [address], 11/27/2023 14:32:04 11/27/19 24 11/27/2023 COMPR EHENS ALMA METAB OLIC PANEL total protein 6.8 g/dL 6.3-8. 2 Not Available [facility] (Lab) [address] [place], [address], 11/27/2023 14:32:04 11/27/19 24 11/27/2023 COMPR EHENS ALMA METAB OLIC PANEL albumin 4.1 g/dL 3.0-4. 4 Not Available [facility] (Lab) [address] [place], [address], 11/27/2023 14:32:04 11/27/19 24 11/27/2023 COMPR EHENS ALMA METAB OLIC PANEL globulin 2.7 g/dL 2.6-4. 2 Not Available [facility] (Lab) [address] [place], [address], 11/27/2023 14:32:04 11/27/19 24 11/27/2023 COMPR EHENS ALMA METAB OLIC PANEL A/G ratio 1.5 ratio 1.0-2. 0 Not Available [facility] (Lab) [address] [place], [address], 11/27/2023 14:32:04 11/27/19 24 11/27/2023 T4 FREE free T4 1.17 NG/dL 0.78-2 .19 Not Available [facility] (Lab) [address] [place], [address], 11/27/2023 14:52:18 11/27/19 24 11/27/2023 PSA, TOTAL PSA, total 0.21 NG/mL 0.00-4 .00 Not Available [facility] (Lab) [address] [place], [address], 11/27/2023 15:02:28 11/27/19 24 11/28/2023 TSH thyroid-stim ulating hormone 0.638 uIU/m L 0.465- 4.680 Not Available [facility] (Lab) [address] [place], [address], 11/28/2023 12:30:06 Result Notes None recorded. Problems Name Problem SNOMED Code Status Onset Date Resolution Date Notes Provider Name and Address Organization Details Recorded Time Fracture of multiple ribs 3669141 Active Not Available [facility] 3 21:24:33 Disorder of thyroid gland 49634943 Active Not Available [facility] 3 21:24:33 Blood glucose outside reference range 228409483 Active 2021 Not Available [facility] 3 21:24:33 Dementia associated with another disease 725393104 Active Not Available [facility] 3 21:24:33 Laceration of kidney 053060047 Active Not Available [facility] 3 21:24:33 Benign prostatic hyperplasi a 905318507 Active Not Available [facility] 3 21:24:33 Chest pain 81030361 Active Not Available [facility] 3 21:24:33 Restless legs 21147206 Active Not Available [facility] 3 21:24:33 Closed fracture of metatarsal bone 37920002 Active Not Available [facility] 3 21:24:33 Prostate specific antigen above reference range 302769295 Active Not Available [facility] 3 21:24:33 Osteoarthr itis 668248007 Active 2015 Not Available [facility] 3 21:24:33 Malignant tumor of prostate 849775004 Active Not Available [facility] 3 21:24:33 Disorder of rotator cuff 373220576 Active Not Available [facility] 3 21:24:33 Closed injury of head 399618118511 Active Not Available [facility] 3 21:24:33 Primary erectile dysfunctio n 448037964 Active 2021 Not Available [facility] 3 21:24:33 Upper respirator y infection 16886207 Active Not Available [facility] 3 21:24:33 Obstructiv e sleep apnea syndrome 69535605 Active Not Available [facility] 3 21:24:33 Ganglion of joint 03552682 Active Not Available [facility] 3 21:24:33 Degenerati ve joint disease of ankle AND/OR foot 44191500 Active Not Available [facility] 3 21:24:33 Pain in limb 19641511 Active Not Available [facility] 3 21:24:33 Increased frequency of urination 406393372 Active 2022 Not Available [facility] 3 21:24:33 Persistent insomnia 741606702 Active 2022 Naila Arizmendi, Christian null, [facility] 3 12:25:39 Hyperlipid emia 48582125 Active 2022 Lee lam MD [address], [facility] [address], [place], [address] , [facility] 3 14:03:10 Essential hypertensi on 31248760 Active 2022 Lee lam MD [address], [facility] [address], [place], [address] , [facility] 3 14:03:15 Hypothyroi dism 44203414 Active 2022 Lee lam MD [address], [address], [place], [address] , [facility] 3 14:03:26 Leukopenia 88686710 Active 2022 Lee lam MD [address], [facility] [address], [place], [address] , [facility] [employer] [facility] 3 14:03:33 Hyperglyce lance 93648434 Active 2022 Sera redmond, [facility] [employer] [facility] 3 16:13:35 Gastroesop hageal reflux disease without esophagiti s 977141036 Active 2023 Lee lam MD [address], [address], [place], [address] , [facility] [employer] [facility] 4 14:34:51 Problem Notes None recorded. Procedures Surgical History Date Name Laterality Status Provider Name and Address Organization Details Recorded Time 12/05/19 24 Medicare Wellness CPT Code, subsequent completed Chino Guzman LPN [facility] 12/05/2023 08:24:11 12/05/19 24 Advanced Care Planning completed Chino Guzman LPN [facility] 12/05/2023 14:23:21 09/18/19 24 Callus Debridement 2-4 completed Jonathan Alarcon DPM [address] [facility], [address], [place], [address], [facility] 09/18/2023 14:13:48 09/05/19 24 Medicare Wellness CPT Code, subsequent completed Chino Guzman LPN [facility] 09/04/2023 10:08:07 05/20/19 21 Dental completed Not Available [facility] 3 05:54:21 06/07/19 18 Colonoscopy completed Not Available [facility] 05/11/19 23 05:54:21 Cyst Removal completed Not Available [facility] 05/10/2022 05:54:21 other completed Not Available [facility] 03/2022 05:54:21 Cataract Surgery completed ARIANNA Hernandez [facility] 02/28/2023 13:58:43 Imaging Results None recorded. Procedure Notes None recorded. Medical Equipment None Reported. Allergies Allergen ID Allergen Name Allergen Category Reaction Reaction Severity Criticality Documentation Date Start Date Code Code System Note Provider Name and Address Organization Details Recorded Time 74538 trazodone medicatio n hives Not available Not available 05/10/2022 65251 RxNorm Not Available [facility] 3 06:06:54 Medications Name Sig Start [...] TAKE 1 TABLET BY MOUTH AT BEDTIME 2024 active Not Available Not Available Not Avai lable sildenafi l 50 mg tablet Take 1 [...] day by oral route for 90 days. 04/09 completed Not Available Not Available Not Available ropinirol e 2 mg tablet active [...] BY MOUTH ONCE DAILY FOR 90 DAYS 04/09 completed Not Available Not Available Not Available gabapenti n 300 mg capsule TAKE [...] Available Not Available Not Available Fluzone High-Dose 0687-2235 (PF) 180 mcg/0.5 mL intramusc ular syringe ADM 0.5ML IM UTD 11/29 completed Not Available Not Available Not Available Fluzone High-Dose 6409-9899 (PF) 180 mcg/0.5 mL intramusc ular syringe [...] Updated DateTime 4 152.4 cm 30.1 kg/m2 95768.2 2 g 96 % 96 % 98.4 [degF] 53 /min 179 mm[Hg] 102 mm[Hg] Star Archer [facility] [employer] 4 11:20:19 Date Recorded Body height Heart rate Body temperature Body mass index (BMI) Body weight Oxygen saturation Oxygen saturation in Arterial blood by Pulse oximetry Systolic blood pressure Diastolic blood pressure Provider Name and Address Organization Details Last Updated DateTime 4 152.4 cm 90 /min 98.1 [degF] 30.1 kg/m2 30580.2 2 g 98 % 98 % 166 mm[Hg] 101 mm[Hg] Swathi Wilson CMA [employer] [facility] [employer] [facility] 4 16:22:25 Date Recorded Body height Body mass index (BMI) Body weight Body temperature Heart rate Systolic blood pressure Diastolic blood pressure Provider Name and Address Organization Details Last Updated DateTime 4 152.4 cm 29.3 kg/m2 86066.8 6 g 97.4 [degF] 90 /min 142 mm[Hg] 84 mm[Hg] Naila Arizmendi Christian [facility] [employer] [facility] 4 14:07:10 Date Recorded Pain severity - 0-10 verbal numeric rating [Score] - Reported Provider Name and Address Organization Details Last Updated DateTime 12/05/2023 0 Chino Guzman LPN [facility] I L [employer] [facility] 12/05/2023 14:20:22 Date Recorded Body height Body mass index (BMI) Body weight Body temperature Heart rate Systolic blood pressure Diastolic blood pressure Provider Name and Address Organization Details Last Updated DateTime 5 152.4 cm 29.3 kg/m2 69756.8 6 g 97.8 [degF] 90 /min 140 mm[Hg] 80 mm[Hg] Naila Arizmendi Christian [facility] [employer] [facility] 5 11:30:04 Date Recorded Body height Heart rate Body temperature Body mass index (BMI) Body weight Oxygen saturation Oxygen saturation in Arterial blood by Pulse oximetry Systolic blood pressure Diastolic blood pressure Provider Name and Address Organization Details Last Updated DateTime 5 152.4 cm 87 /min 96.8 [degF] 29.3 kg/m2 47301.8 6 g 98 % 98 % 140 mm[Hg] 73 mm[Hg] Swathi Wilson CMA [facility] [employer] [facility] 5 13:54:08 Social History Question Answer Notes LastModified by Organization Details LastModified Time Tobacco Smoking Status Never Smoker Not Available [employer] 05/10/2022 05:53:36 Do You Have An Advance Directive? No MIGRATION.0301 [id number] Information not available 05/10/2022 What Is Your Level Of Alcohol Consumption? Occasional MIGRATION.0301 [id number] Information not available 05/10/2022 How Many Years Have You Consumed Alcohol? 60 Information not available 12/05/2023 Do You Wear A Helmet When Biking? No Does Not Bike [email or web address] Information not available 12/05/2023 Are You Blind Or Do You Have Difficulty Seeing? No MIGRATION.0301 754127 Information not available 05/10/2022 What Is Your Level Of Caffeine Consumption? Moderate MIGRATION.0301 [id number] Information not available 05/10/2022 What Is Your Code Status? Full Code [email or web address] Information not available 12/05/2023 In The 14 Days Before Symptom Onset, Have You Had Close Contact With A Laboratory-confi rmed COVID-19 While That Case Was Ill? No MIGRATION.0301 032965 Information not available 05/10/2022 In The 14 Days Before Symptom Onset, Have You Had Close Contact With A Person Who Is Under Investigation For COVID-19 While That Person Was Ill? No MIGRATION.030 387883 Information not available 05/10/2022 Are You Currently Employed? No [email or web address] Information not available 12/05/2023 Are You Deaf Or Do You Have Serious Difficulty Hearing? Yes Has Hearing Aids MIGRATION.300026 Information not available 05/10/2022 What Type Of Diet Are You Following? REGULAR MIGRATION.300026 Information not available 05/10/2022 What Is The Highest Grade Or Level Of School You Have Completed Or The Highest Degree You Have Received? CS70656-2 MIGRATION.[id number] Information not available 05/10/2022 What Is Your Occupation? Retired MIGRATION.22990417 Information not available 05/10/2022 How Many Days Of Moderate To Strenuous Exercise, Like A Brisk Walk, Did You Do In The Last 7 Days? 0 [email or web address] Information not available 12/05/2023 Have There Been Any Changes To Your Family Or Social Situation? No MIGRATION.[id number] Information not available 05/10/2022 What Is The Fluoride Status Of Your Home? Unknown Information not available 12/05/2023 Are There Any Guns Present In Your Home? Yes MIGRATION.300026 Information not available 05/10/2022 Do You Use Insect Repellent Routinely? Yes MIGRATION.300026 Information not available 05/10/2022 Where Do You Live? SingleLevelHouse MIGRATION.300026 Information not available 05/10/2022 Presence Of Domestic Violence No [email or web address] Information not available 12/05/2023 Guns Present In The Home? Yes [email or web address] Information not available 12/05/2023 Are You Blind Or Do Yo Have Difficulty Seeing? No Information not available 12/05/2023 Are You Deaf Or Do You Have Serious Difficulty Hearing? Yes Wears Hearing Aids. [email or web address] Information not available 12/05/2023 General Stress Level? Low [email or web address] Information not available 12/05/2023 Live Alone Of With Others? With Others [email or web address] Information not available 12/05/2023 Do You Have A Medical Power Of Commercial Front Load Operator? No MIGRATION.0301 [id number] Information not available 05/10/2022 What Was The Date Of Your Most Recent Tobacco Screening? 04/09/2024 [email or web address] Information not available 04/09/2024 How Many Children Do You Have? 1 [email or web address] Information not available 12/05/2023 Have You Ever Been Counseled For Unhealthy Alcohol Use? No MIGRATION.0301 222944 Information not available 05/10/2022 Do You Have Any Pets? No MIGRATION.0301 051632 Information not available 05/10/2022 What Is Your Relationship Status? MIGRATION.0301 632176 Information not available 05/10/2022 Do You Use Your Seat Belt Or Car Seat Routinely? Yes MIGRATION.0301 873272 Information not available 05/10/2022 Are You Sexually Active? No [email or web address] Information not available 12/05/2023 Do You Have Smoke And Carbon Monoxide Detectors In Your Home? Yes MIGRATION.0301 129684 Information not available 05/10/2022 Are You Passively Exposed To Smoke? No MIGRATION.0301 763922 Information not available 05/10/2022 Are There Any Smokers In Your House? No MIGRATION.0301 931285 Information not available 05/10/2022 How Much Tobacco Do You Smoke? No MIGRATION.0301 421944 Information not available 05/10/2022 What Types Of Sporting Activities Do You Participate In? None MIGRATION.0301 381730 Information not available 05/10/2022 Do You Feel Stressed (tense, Restless, Nervous, Or Anxious, Or Unable To Sleep At Night)? [id number] MIGRATION.0301 060811 Information not available 05/10/2022 Do You Use Any Illicit Or Recreational Drugs? No MIGRATION.0301 041850 Information not available 05/10/2022 Do You Use Sunscreen Routinely? Yes [email or web address] Information not available 12/05/2023 Has Tobacco Cessation Counseling Been Provided? No [email or web address] Information not available 12/05/2023 How Many Years Have You Smoked Tobacco? 0 MIGRATION.0301 972317 Information not available 05/10/2022 Have You Recently Traveled Abroad? No MIGRATION.0301 025369 Information not available 05/10/2022 Do You Have Any Dietary Restrictions? No MIGRATION.0301 322065 Information not available 05/10/2022 Do You Or Have You Ever Used Any Other Forms Of Tobacco Or Nicotine? No MIGRATION.0301 561037 Information not available 05/10/2022 How Many Days In The Past Year Have You Consumed 5 Or More Drinks? 0 [email or web address] Information not available 12/05/2023 Sex: Male Functional Status Question Answer Note LastModified by Organizat ion Details LastModified Time Do you have difficulty walking or climbing stairs? No MIGRATION.830791 3083 Information not available 05/10/2022 Do you have transportation difficulties? No MIGRATION.797918 1067 Information not available 05/10/2022 Are you able to walk? YESWOREST MIGRATION.499350 2113 Information not available 05/10/2022 Do you have difficulty doing errands alone? No MIGRATION.797295 3854 Information not available 05/10/2022 Are you able to care for yourself? Yes MIGRATION.336178 8428 Information not available 05/10/2022 Do you have difficulty dressing or bathing? No MIGRATION.672722 1877 Information not available 05/10/2022 What is your exercise level? None stays active MIGRATION.113638 1797 Information not available 05/10/2022 Mental Status Question Answer Note LastModified by Organizat ion Details LastModified Time Do you have difficulty concentrating, remembering or making decisions? No MIGRATION.[id number] 6 Information not available 05/10/2022 Family History Relationship Description Onset Age of this Age Resolved Age Notes LastModified by Organization Details LastModified Time Father Heart disease MIGRATION.632 [id number] Not available 05/10/2022 05:54:22 Father Cerebrovascu lar accident MIGRATION.241 [id number] Not available 05/10/2022 05:54:22 Sister Malignant tumor of breast MIGRATION.452 [id number] Not available 05/10/2022 05:54:22 Unspecified Relation Family history of malignant neoplasm MIGRATION.356 [id number] Not available 05/10/2022 05:54:22 Medical History Condition Response BLINDNESS N KIDNEY STONES N CARPAL TUNNEL SYNDROME N MRSA N LUNG DISEASE/DISORDER N HISTORY OF DRUG ABUSE N RADIATION / CHEMOTHERAPY Y COPD N ANKLE PAIN N SPORTS INJURY N BLOOD DISEASES N SCHIZOPHRENIA N SHINGLES N DEPRESSION (INCLUDING POST ) N SHOULDER PAIN N BOWEL PROBLEMS N STROKE/TIA N KNEE [...] Y NEUROPATHY N AIDS/HIV N FRACTURES N ELBOW PAIN N HYPERTENSION Y TOURETTE'S N ANXIETY DISORDER N Metal allergy N BLOOD TRANSFUSION N ANEMIA/BLOOD DISORDER N BIPOLAR DISORDER N BRONCHITIS N OSTEOARTHRITIS Y TUBERCULOSIS N FOOT PROBLEM N HEART VALVE DISORDERS N SLEEP APNEA Y ALLERGIES/HAYFEVER N SOFT TISSUE INJURY N INFECTIOUS DISEASE N HEART ARRHYTHMIA N PROSTATE Y INSOMNIA Y RHEUMATOID ARTHRITIS N HIGH CHOLESTEROL / HYPERLIPIDEMIA Y EDEMA N CHRONIC PAIN SYNDROME N CAROTID BLOCKAGE N BACK / NECK PROBLEMS N BURSITIS N HERNIATED DISC N DIALYSIS N FIBROMYALGIA N OSTEOPOROSIS N PERIPHERAL NEUROPATHY N DIABETES, TYPE N HEARTBURN / REFLUX N HEPATITIS / LIVER DISEASE N GOUT N SLEEP DISORDER N ALZHEIMER'S DISEASE N DEMENTIA Y HERPES N SEIZURES/EPILEPSY N HEADACHES/MIGRAINES N VASCULAR DISEASE N HIP PAIN N Blood Disorder N DIZZINESS N HEAD TRAUMA OR INJURY N HEART DISEASE/HEART PROBLEMS N MULTIPLE SCLEROSIS N CARDIAC ARRHYTHMIA N CANCER: SPECIFY Y ANESTHESIA COMPLICATIONS N ATRIAL FIBRILLATION N AUTOIMMUNE DISEASE N Immunizations Vaccine Type Date Status Note Provider Nam e and Address Organization Details Recorded Time COVID-19 vaccine, vector-nr, rS-Ad26, PF, 0.5 mL 1 completed Naila Arizmendi RMChristian redmond, [facility] 12/05/2023 14:04:45 COVID-19 vaccine, vector-nr, rS-Ad26, PF, 0.5 mL 1 completed Naila Arizmendi RMA null, [facility] 12/05/2023 14:04:45 Influenza, high-dose, trivalent, PF 6 completed Naila Arizmendi RMA null, [facility] 12/05/2023 14:04:45 Influenza, high-dose, trivalent, PF 7 completed Naila Arizmendi RMA null, [facility] 12/05/2023 14:04:45 Influenza, high-dose, trivalent, PF 5 completed Naila Arizmendi RMA null, [facility] 12/05/2023 14:04:45 pneumococcal polysaccharide PPV23 5 completed LETICIA HernandezA null, [facility] 04/09/2024 11:27:17 COVID-19, mRNA, LNP-S, PF, 100 mcg/0.5mL dose or 50 mcg/0.25mL dose 1 completed Naila Arizmendi RMA null, [facility] 12/05/2023 14:04:45 Influenza, split virus, trivalent, preservative 5 completed Naila Arizmendi RMA null, [facility] 12/05/2023 14:04:45 Influenza, high-dose, trivalent, PF 9 completed LETICIA HernandezA null, [facility] 12/05/2023 14:04:45 influenza, unspecified formulation 7 completed Not Available [facility] 07/16/2022 21:24:34 TIG 6 completed Not Available [facility] 07/16/2022 21:24:34 Influenza, high-dose, quadrivalent, PF 2 completed Not Available [facility] 07/16/2022 21:24:34 Influenza, high-dose, quadrivalent, PF 2 completed LETICIA HernandezA nyla, [facility] 12/05/2023 14:04:45 Influenza, high-dose, trivalent, PF 9 completed Not Available [facility] 07/16/2022 21:24:34 pneumococcal polysaccharide PPV23 9 completed Not Available [facility] 07/16/2022 21:24:34 Pneumococcal conjugate PCV 13 7 completed Not Available [facility] 07/16/2022 21:24:34 Influenza, split virus, trivalent, preservative 4 completed Naila Arizmendi RMA null, [facility] 12/05/2023 14:04:45 Influenza, split virus, trivalent, PF 3 completed ARIANNA Hernandez null, [place] [employer] [facility] [employer] 12/05/2023 14:04:45 Influenza, high-dose, quadrivalent, PF 3 completed Lee Graham MD [address], [place], [address], [employer] 02/28/2023 18:06:54 Influenza, high-dose, trivalent, PF 4 completed Lee Graham MD [address], [place], [address], [employer] 12/10/2023 15:31:44 Past Encounters Encounter ID Performer Location Encounter Start Date Encounter Closed Date Diagnosis/Indication Diagnosis SNOMED-CT Code Diagnosis ICD10 Code Diagnosis Note [id number] [facility] Tobyvi llarabella [facility] Adrián y , [place] [address] 05/31/2020 00:00:00 11/10/2020 11:01:26 [id number] [facility] [place] [address] [facility] [address] [place] [address] 06/29/2020 00:00:00 06/29/2020 16:50:28 [id number] [facility] [place] [address] [facility] [address] [place] [address] 08/24/2020 00:00:00 08/24/2020 13:05:02 [id number] [facility] Tobyvi llarabella [facility] [place] [address] 11/29/2020 00:00:00 01/03/2021 17:59:55 [id number] [facility] Tobyvi llarabella [facility] [place] [address] 05/25/2021 00:00:00 05/25/2021 14:43:04 [id number] [facility] Tobyvi llarabella [facility] [place] [address] [address] 10/10/2021 00:00:00 10/10/2021 17:10:57 [id number] [facility] [address] [place] [address] 10/26/2021 00:00:00 10/26/2021 10:49:49 [id number] [facility] [address] [place] [address] 11/23/2021 00:00:00 11/23/2021 09:48:11 [id number] [facility] [address] [place] [address] 12/30/2021 00:00:00 12/30/2021 14:29:32 [id number] [facility] [place] [address] [facility] [address] [facility] [place] [address] 02/27/2022 00:00:00 02/27/2022 14:47:47 [id number] Da Stokes MD [facility] [address] [place] [address] 05/24/2022 13:36:00 05/25/2022 08:12:42 Malignant tumor of prostate [id number] C61 :-INITIAL DIAGNOSIS: 02/22/2016 - GS 6, cT2b -TREATMENT HISTORY:2018 - 03/2020 ADT12/2018 Completed IMRT -PERTINENT IMAGIN Prostate MRI - concern for extra-pros tatic extension CT CAP - negative2018 Bone Scan - negative -PSA (T) TREND:05/22 - 0.128//2 022 - 0.13 (T = 293)03/16/19 21 - Undetectab le (T = 7.2)07/2018 - 7.93 ----- Plan for q6mos PSA through 10/2022 (1 year after T recovered from ADT), then space to annual Primary er ectile dysfunction [id number] N52.9 :Per Dr Powell, patient on cialis 5mg daily, plus 20mg 1 hour prior to sexual activity, plus L citrulline 3000mg. - If this does not do well, next step is ICI. Patient is hesitant about this. Because of that, will hold on follow ups with Dr. Powell Increased frequency of urination 691961914 R35.0 :Unclear etiology for urinary symptoms at [...] ate failure to store vs. empty-PVR today [id number] Lee lam MD [facility] Internal [facility] [place] [address] [facility] y , [facility] [place] [address] 08/28/2022 13:44:29 08/28/2022 14:19:01 Screening - NAD [id number] Z13.9 Colonoscop y: Dr Rainey [facility] 03/15/18, next in one year2020: C-scope: tubular adenoma: Dr Sullivan Get flu shotUTD tdap 01/11/16h ould get shinglesUT D pneumovax. #13 and #23UTD on COVID 19 vaccine RTC in 4 monthswith labsand he did verbalize his understand ing of the above Persistent insomnia 1919 [address] G47.09 Now does well on the trazodone 100mg daily Hyperlipidemia 86165378 E78.5 On atorvastat in 40mg dailyGet labs Essential hypertension 39611305 I10 On amlodipine 10mg dailyOn HCTZ 12.5mg daily Does well Restless legs 36966720 G 25.81 Hx of ANJU on CPAP, but he states that he does not use the CPAP as he 'hated it' and 'threw' it away, does not want any more testing Not taking ropinirole 3mg daily Hypothyroidism 16370442 E03.9 On levothyrox ine 25mcgs daily US thyroid 10/10/2021 : Neg Leukopenia 02521404 D72. [address] Noguera last 11/22/2021 Prostate s pecific antigen above reference range 352263889 R97.20 OV 05/31/2020 :He has seen Dr [...] with Dr Stokes Primary er ectile dysfunction 222866282 N52.9 On sildenafil 50mg as needed, but this has not helped, s/p radiation Rx for prostate cancer, will refer to urology Seen by Dr Stokes next apt 11/22/2022 [id number] Lee lam MD [facility] [place] [address] [facility] [address] [place] [address] 02/28/2023 13:51:38 02/28/2023 14:26:20 Screening - NAD [id number] Z13.9 Colonoscop y: Dr Rainey [facility] 03/15/18, next in one year2020: C-scope: tubular adenoma: Dr Sullivan Get flu shotUTD tdap 01/11/16 ould get shinglesUT D pneumovax. #13 and #23UTD on COVID 19 vaccineCan do RSV vaccine RTC in 6 monthswith labsand he did verbalize his understand ing of the above Persistent insomnia 1919 67920 G47.09 Now does well on the trazodone 50mg daily, can do 2 tablets if needed and OK to renew 02/28/2023 Hyperlipidemia 29796677 E78.5 On atorvastat in 40mg dailyMore diet and exercise, he does state that he is eating more sweetsGet labs Essential hypertension 47979040 I10 On amlodipine 10mg dailyOn HCTZ 12.5mg daily Does well Restless legs 64971597 G 25.81 Hx of ANJU on CPAP, but he states that he does not use the CPAP as he 'hated it' and 'threw' it away, does not want any more testing Not taking ropinirole 3mg daily Hypothyroidism 78984025 E03.9 On levothyrox ine 25mcgs daily US thyroid 10/10/2021 : Neg Leukopenia 48565122 D72. [address] Noguera last 11/22/2021 Prostate s pecific antigen above reference range 103008222 R97.20 OV 05/31/2020 :He has seen Dr [...] Sees Dr Stokes Primary er ectile dysfunction 939052929 N52.9 On sildenafil 50mg as needed, but this has not helped, s/p radiation Rx for prostate cancer, will refer to urology Seen by Dr Stokes Administra tion of influenza vaccine 35469019 Z23 [id number] Lee lam MD [facility] [place] [address] [place] [address] 09/05/2023 13:50:35 09/05/2023 14:27:32 Screening - NAD 602337185 Z13.9 Colonoscop y: Dr Rainey [facility] 03/15/18, next in one year2020: C-scope: tubular adenoma: Dr Sullivan Get flu shotUTD tdap 01/10/16sh ould get shingrix vaccineUTD pneumovax. #13 and #23UTD on COVID 19 vaccineCan do RSV vaccine RTC in 6 monthswith labsand he did verbalize his understand ing of the above Persistent insomnia 1919 18023 G47.09 Now does well on the trazodone 50mg daily, can do 2 tablets if needed and OK to renew 02/28/2023 Hyperlipidemia 91791641 E78.5 On atorvastat in 40mg dailyMore diet and exerciseGe t labs Essential hypertension 49170638 I10 On amlodipine 10mg dailyOn HCTZ 12.5mg daily Does well Restless legs 20789793 G 25.81 Hx of ANJU on CPAP, but he states that he does not use the CPAP as he 'hated it' and 'threw' it away, does not want any more testing Not taking ropinirole 3mg daily Hypothyroidism 42539956 E03.9 On levothyrox ine 25mcgs daily US thyroid 10/10/2021 : Neg Leukopenia 72472489 D72. [address] Noguera last 11/22/2021 Prostate s pecific antigen above reference range 379586125 R97.20 OV 05/31/2020 :He has seen Dr [...] thru this office Primary er ectile dysfunction 849462079 N52.9 On sildenafil 50mg as needed, but this has not helped, s/p radiation Rx for prostate cancer, will refer to urology Seen by Dr Stokes Hyperglycemia 95904859 R 73.9 Get labs [id number] Jonathan Alarcon DPM [facility] [address] [facility] [facility] [address] [place] [address] 09/18/2023 10:47:07 09/18/2023 15:12:54 [id number] Rita Barber MD [facility] [place] [address] [place] [address] 10/05/2023 16:09:38 10/05/2023 16:40:10 History of malignant neoplasm of prostate 209155398 Z85.46 [id number] Lee lam MD [facility] Internal Med [facility] [address] , [place] [address] 12/05/2023 13:55:15 12/05/2023 14:42:55 Screening - NAD 906577356 Z13.9 Colonoscop y: Dr Rainey [facility] 03/15/18, next in one year2020: C-scope: tubular adenoma: Dr Sullivan Get flu shotUTD tdap 01/11/16h ould get shingrix vaccineUTD pneumovax. #13 and #23UTD on COVID 19 vaccineCan do RSV vaccine RTC in 6 monthswith labsand he did verbalize his understand ing of the above Persistent insomnia 1919 96879 G47.09 Now does well on the trazodone 50mg daily, can do 2 tablets if needed and OK to renew 02/28/2023 Hyperlipidemia 90214565 E78.5 On atorvastat in 40mg dailyMore diet and exerciseGe t labs Essential hypertension 37109768 I10 On amlodipine 10mg dailyOn HCTZ 12.5mg daily Does well Restless legs 75996832 G 25.81 Hx of ANJU on CPAP, but he states that he does not use the CPAP as he 'hated it' and 'threw' it away, does not want any more testing Not taking ropinirole 3mg daily Hypothyroidism 66337243 E03.9 On levothyrox ine 25mcgs daily US thyroid 10/10/2021 : Neg Leukopenia 46596101 D72. [address] Noguera last 11/22/2021 Prostate s pecific antigen above reference range 152497492 R97.20 OV 05/31/2020 :He has seen Dr [...] Dr Stokes OV 09/05/2023 :See his urologistW israel like to get the PSA thru this office OV 12/05/2023 :See urology Primary er ectile dysfunction 402679257 N52.9 On sildenafil 50mg as needed, but this has not helped, s/p radiation Rx for prostate cancer, will refer to urology Seen by Dr Stokes Hyperglycemia 63942420 R 73.9 Get labs Adult heal th examination 534066369 Z00.00 Screening for disorder 434121057 Z13.9 Gastroesop hageal reflux disease without esophagitis 368184007 K21.9 Has noted 'acid reflux' with coffee and alcohol, encouraged to not have these, get EGD done and get on omeprazole as needed Administra tion of influenza vaccine 96090013 Z23 [id number] Lee lam MD [facility] Primary Care [place] [address] [facility] [address] [place] [address] 04/09/2024 11:10:15 04/09/2024 12:09:17 Screening - NAD 951198223 Z13.9 Colonoscop y: Dr Rainey [facility] 03/15/18, next in one year2020: C-scope: tubular adenoma: Dr Sullivan Get flu shotUTD tdap 11/01/16sh ould get shingrix vaccineUTD pneumovax. #13 and #23UTD on COVID 19 vaccineCan do RSV vaccine RTC in 6 monthswith labsand he did verbalize his understand ing of the above Persistent insomnia 1919 26948 G47.09 On the trazodone 50mg daily, can do 2 tablets if needed and OK to renew Hyperlipidemia 47497901 E78.5 On atorvastat in 40mg dailyMore diet and exerciseGe t labs Essential hypertension 68880132 I10 On amlodipine 10mg dailyOn HCTZ 12.5mg dailyNot taking these 5, self stoppedDoe s well Restless legs 02621914 G 25.81 Hx of ANJU on CPAP, but he states that he does not use the CPAP as he 'hated it' and 'threw' it away, does not want any more testing Not taking ropinirole 3mg daily Hypothyroidism 52810369 E03.9 On levothyrox ine 25mcgs daily US thyroid 10/10/2021 : Neg Leukopenia 32641068 D72. 819 Dr Noguera 04/08/2024 , f/u yearly Prostate s pecific antigen above reference range 466985868 R97.20 OV 05/31/2020 :He has seen Dr [...] thru this office OV 12/05/2023 :See urology OV 04/09/2024 : Has apt today with urology Primary er ectile dysfunction 149207267 N52.9 On sildenafil 50mg as needed, but this has not helped, s/p radiation Rx for prostate cancer, will refer to urology Seen by Dr Stokes Hyperglycemia 13731312 R 73.9 Get labsDeclin ed any meds, understand s the risks for elevated glucose and A1C Gastroesop hageal reflux disease without esophagitis 769220199 K21.9 Has noted 'acid reflux' with coffee and alcohol, encouraged to not have these, get EGD done and get on omeprazole as needed [id number] Rita Barber MD [facility] [place] [address] [place] [address] 04/09/2024 13:34:16 04/09/2024 14:45:31 History of malignant neoplasm of prostate 450969427 Z85.46 Health Concerns Section Related Observation LastModified by Organization Detai ls LastModified Time None Recorded Concern Status LastModified by Organization Details LastModified Time None Recorded Advance Directives Directive N: Payers Encounter Date Sequence Insurance Name Policy Number Policy Lozano Covered Member ID Lozano Member ID Guarantor Name 09/18/2023 1 [facility] (MEDICARE REPLACEMENT/AD VANTAGE - HMO) [id number] Kiran Blurton [id number] Kiran Blurton 10/05/2023 1 [facility] (MEDICARE REPLACEMENT/AD VANTAGE - HMO) [id number] Kiran Blurton [id number] Kiran Blurton 12/05/2023 1 [facility] (MEDICARE REPLACEMENT/AD VANTAGE - HMO) [id number] Kiran Blurton [id number] Kiran Blurton 04/09/2024 1 [employer] (MEDICARE REPLACEMENT PPO) [id number] Kiran Blurton [id number] Kiran Blurton 04/09/2024 1 [employer] (MEDICARE REPLACEMENT PPO) [id number] Kiran Blurton [id number] Kiran Blurton Notes Date Note Type Note Provider Name and Address Organization Details Recorded Time 09/18/2023 text/html NIDDM foot scree leila and tx of calluses both feet Jonathan Alarcon, DPM [address], [place], [address], [facility] 09/18/2023 14:13:53 10/05/2023 text/html this is a [...] is hot flashes and night sweats Rita Barbre MD [address] [facility] [address], [place], [address], [place] [facility] 10/05/2023 16:50:09 12/05/2023 text/html Last OV: 08/14/16Here [...] hematologistHe feels 'great' had to cancel his [place] trip d/t coronavirusOV 10/27/2019;Here for his routine aptHe did get labsHe also did see Dr Dukes did trip over a log and hurt his R rib cage, [place] 05/31/2020:Here [...] doing well today Lee Graham MD [address] [facility] [address], [place], [address], [facility] 12/10/2023 15:34:00 04/09/2024 text/html this patient is status post radiation therapy for prostate cancer his PSA has been almost undetectable his last PSA was 0.12 in the most recent PSA is 0.1. He is having no complaints. Last time he came in he had some hot flashes and night sweats I put him on soy tablets he says now that is resolved he is doing fine Rita Barber MD [address], [place], [address], [facility] 04/09/2024 16:52:28 04/09/2024 text/html Last OV: 08/14/16Here to establish carePast [...] hematologistHe feels 'great' had to cancel his [place] trip d/t coronavirusOV 10/27/2019;Here for his routine aptHe did get labsHe also did see Dr Dukes did trip over a log and hurt his R rib cage, [place] 05/31/2020:Here [...] doing well today Lee Graham MD [address] [facility] [address], [place], [address], [facility] 04/09/2024 12:08:36
--- OUTSIDE RECORDS SUMMARY | 2024-07-02 10:40 | XMS_ITS | CONTINUITY OF CARE DOCUMENT ---
Author Name polo, polo Address Unknown Organization [facility] Address [address] [place] [address] Phone [phone] Care Team Providers Care Medical Unit Secretary Name Role Phone Elbert MANRIQUE, Sheri Unavailable DANNY YANES MD Unavailable [phone] DANNY YANES MD Unavailable PROBLEMS Condition Status Date Provider Notes HTN ESSENTIAL active Sheri Boswell MD ABNORMAL ELECTROCARDIOGRAM active Sheri clay MD LEG PAIN active Sheri Boswell MD ENCOUNTERS Date Type Provider Location Encounter Diag nosis - In-person encounter Office Visit Sheri Boswell MD [place] [facility] HTN ESSENTIALABNORMAL ELECTROCARDIOGRAMLEG PAIN VITAL SIGNS [...] Payer name Policy type / Coverage type [place] [employer] party ID [employer] Commercial insurance company [id number] [place] Medicare [id number] TREATMENT PLAN Date Name Performer new pt.: O rders: E KG (CPT-[id number]) BP today: 141/83 Sheri Boswell MD HISTORY OF PROCEDURES Procedure Date Procedure Name Provider Procedure Notes S tatus EKG Sheri Boswell MD completed
--- OUTSIDE RECORDS SUMMARY | 2024-07-02 10:40 | XMS_ITS | Clinical Summary ---
Author Organization [facility] Meghan thurman Robert Address [address] [place] [address] Care Team Providers Care Caster Operator Name Role Phone Lee Graham MD Primary Care Provider Allergies No known active allergies Medications levothyroxine 25 mcg tablet levothyroxine 25 mcg tablet TAKE 1 TABLET BY MOUTH ONCE DAILY Active traZODone (DESYREL) 100 mg tablet Take 100 mg by mouth daily at bedtime. Active atorvastatin (LIPITOR) 40 mg tablet Take 40 mg by mouth daily. Active CYANOCOBALAMIN , VITAMIN B-12, ORAL Take by mouth daily. Active Active Problems Problem Noted Date Diagnosed Date Leukopenia 04/30/2019 Prostate cancer 04/30/2019 Encounters Date Type Department Care Team Description 05/14/2024 External Device Data STL ABSTRACTION Provider, Abstract 04/30/2024 External Device Data [facility] ABSTRACTION Provider, Abstract 04/30/2024 External Device Data [facility] ABSTRACTION Provider, Abstract 04/15/2024 External Device Data ST[facility] ABSTRACTION Provider, Abstract 04/15/2024 External Device Data ST[facility] ABSTRACTION Provider, Abstract 04/08/2024 3:45 PM CARTON INSPECTOR Office Visit [facility] - [place] [address] [place] [place] [address] Brett Noguera MD Leukopenia, unspecified type (Primary Dx); Prostate cancer (CMS/HCC) 04/07/2024 Orders Only [facility] [place] [address] [place] [address] Brett Noguera MD 04/04/2024 Orders Only [facility] - [place] [address] [facility] [address] [place] [address] Brett Noguera MD from Last 3 Months Family History Medical History Relation Name Comments Cancer Sister Relation Name Status Comments Brother Father Mother Sister Alive Social History Tobacco Use Types Packs/Day Years Used Date Smoking Tobacco: Never Smokeless Tobacco: Never Alcohol Use Standard Drinks/Week Comments Yes 0 (1 standard drink = 0.6 oz pur e alcohol) Sex and Gender Information Value Date Recorded Sex Assigned at Not on file Legal Sex Male 9:59 AM CARTON INSPECTOR Gender Identity Not on file Sexual Orientation Not on file Last Filed Vital Signs Vital Sign Reading Time Taken Comments Blood Pressure 132/86 04/08/2024 3:04 PM CARTON INSPECTOR Pulse 63 04/08/2024 3:01 PM CARTON INSPECTOR Temperature 36.2 C (97.1 F) 04/08/2024 3:01 PM CARTON INSPECTOR Respiratory Rate 15 04/08/2024 3:01 PM CARTON INSPECTOR Oxygen Saturation 95% 04/08/2024 3:01 PM CARTON INSPECTOR Inhaled Oxygen Concentration - - Weight 67.6 kg (149 lb) 04/08/2024 3:01 PM CARTON INSPECTOR Height 152.4 cm (5') 11/22/2021 11:42 AM CDT Body Mass Index 29.1 11/22/2021 11:42 AM CDT Plan of Treatment Upcoming Encounters Date Type Department Care Team (Late st Contact Info) Description 04/08/2025 3:45 PM CARTON INSPECTOR Office Visit [facility] - [place] [address] [place] [address] Brett Noguera MD [address] [facility] [address] [place] [address] Health Maintenance Due Date Last Done Comments DTAP/TDAP/TD VACCINES (1 - Tdap) 1960 ZOSTER VACCINE (1 of 2) 07/01/1991 RSV VACCINE (60+ or ) (1 - 1-dose 75+ series) 2016 INFLUENZA VACCINE (#1) 2023 2, 05/25/2021, 12/10/2018, Additional history exists COLORECTAL SCREENING Discontinued 03/15/2018, 09/21/2017, 09/21/2017, Additional history exists Colorectal Cancer Screening Discontinued PNEUMOCOCCAL VACCINE 50+ YEARS Completed 03/18/2018 , 02/12/2017 FIT-DNA Q 3 years Discontinued FIT/FOBT Q 1 year Discontinued Flex Sig/CT Colonography Q 5 years Discontinued Insurance [facility] [id number] [facility] Care Teams Caster Operator Relationship Specialty Start Date End Date Lee Graham MD PCP - General Internal Medicine 03/10/19
[2024-07-02 11:19] LABS: Alanine Aminotransferase 21 U/L (6-50); Albumin Level 4.2 g/dL (3.5-5.1); Alkaline Phosphatase 106 U/L (38-126); Anion Gap 9 mmol/L (4-12); Aspartate Amino Transferase 27 U/L (17-59); Bilirubin,Total 0.8 mg/dL (0.2-1.3); Blood Urea Nitrogen 17 mg/dL (9-20); Calcium 8.7 mg/dL (8.4-10.2); Carbon Dioxide 25 mmol/L (22-30); Chloride 101 mmol/L (98-107); Cholesterol 174 mg/dL (0-200); Estimated Glomerular Filt Rate > 60; Glucose 108 mg/dL (65-110); HDL Direct 65 mg/dL; Potassium 4.2 mmol/L (3.4-5.0); Sodium 135 mmol/L (137-145); Triglycerides 95 mg/dL (<150)
[2024-07-02 11:23] LABS: Hemoglobin A1C 5.5 % (<5.7)
[2024-07-02 11:32] LABS: LDL Cholesterol Direct 78 mg/dL
[2024-07-02 11:36] LABS: Creatinine Urine 123.1 mg/dL
[2024-07-02 11:38] LABS: MALB Creatinine Ratio 88.2 mg/g (0-30); Microalbumin Urine Random 108.6 mg/L (0-16.7)
[2024-07-02 11:40] LABS: Free T4 Free Thyroxine 1.21 ng/dL (0.78-2.19)
[2024-07-02 12:04] LABS: Thyroid Stimulating Hormone 0.705 uIU/mL (0.465-4.680)
== END 2024-07-02 09:37 | disposition home or self-care (01) ==
LOC: ANHLAB 09:37
PROVIDERS: PCP Internal Medicine; Visit Provider Internal Medicine
DX: E78.5 Hyperlipidemia, unspecified (principal); R73.9 Hyperglycemia, unspecified
CPT/HCPCS: 36415; 80053; 80061; 82043; 83036; 84439; 84443; 85025

== ENCOUNTER 2024-10-22 09:16 | Outpatient (CLI) | payer MEDICARE, SELFPAY ==
--- OUTSIDE RECORDS SUMMARY | 2024-10-22 09:26 | XMS_ITS | Clinical Summary ---
Author Organization [facility] Meghan thurman Joselaurentflorecita Address [address] [place] [address] Care Team Providers Care Civil Engineer Helper Name Role Phone Lee Graham MD Primary [...] Encounters Date Type Department Care Team Description 10/21/2024 External Device Data [facility] ABSTRACTION Provider, Abstract 07/31/2024 External Device Data [facility] ABSTRACTION Provider, Abstract 07/30/2024 External Device Data [facility] ABSTRACTION Provider, Abstract 07/29/2024 External Device Data [facility] ABSTRACTION Provider, Abstract from Last 3 Months Family History Medical [...] on file Legal Sex Male 9:59 AM FEEDER DRIVER Gender Identity Not on file Sexual Orientation Not on file Last Filed Vital Signs Vital Sign Reading Time Taken Comments Blood Pressure 132/86 04/08/2024 3:04 PM FEEDER DRIVER Pulse 63 04/08/2024 3:01 PM FEEDER DRIVER Temperature 36.2 C (97.1 F) 04/08/2024 3:01 PM FEEDER DRIVER Respiratory Rate 15 04/08/2024 3:01 PM FEEDER DRIVER Oxygen Saturation 95% 04/08/2024 3:01 PM FEEDER DRIVER Inhaled Oxygen Concentration - - Weight 67.6 kg (149 lb) 04/08/2024 3:01 PM FEEDER DRIVER Height 152.4 cm (5') 11/22/2021 11:42 AM CDT Body Mass Index 29.1 11/22/2021 11:42 AM CDT Plan of Treatment Upcoming Encounters Date Type Department Care Team (Late st Contact Info) Description 04/08/2025 3:45 PM FEEDER DRIVER Office Visit [facility] Oncology and Hematology - [place] [address] [facility] [address] [place] [address] Brett Noguera MD [address] [place] [address] Health Maintenance Due Date Last Done Comments DTAP/TDAP/TD VACCINES (1 - Tdap) 1960 ZOSTER VACCINE (1 of 2) 07/01/1991 RSV VACCINE (60+ or ) (1 - 1-dose 75+ series) 2016 INFLUENZA VACCINE (#1) 2024 2, 05/25/2021, 12/10/2018, Additional history exists COLORECTAL SCREENING Discontinued 03/15/2018, 09/21/2017, 09/21/2017, Additional history exists Colorectal Cancer Screening Discontinued PNEUMOCOCCAL VACCINE 50+ YEARS Completed 03/18/2018 , 02/12/2017 FIT-DNA Q 3 years Discontinued FIT/FOBT Q 1 year Discontinued Flex Sig/CT Colonography Q 5 years Discontinued Insurance [facility] DUAL COMPLETE PPO DSNP [facility] [id number] [facility] Care Teams Civil Engineer Helper Relationship Specialty Start Date End Date Lee Graham MD PCP - General Internal Medicine 03/10/19
--- OUTSIDE RECORDS SUMMARY | 2024-10-22 09:26 | XMS_ITS | Encounter Summary ---
Author Organization [facility] Address [address] [place] [address] Care Team Providers Care Rn Nicu Name Role Phone Lee Graham MD Primary Care Provider Encounter Details Date Type Department Care Team (Late st Contact Info) Description 10/21/2024 External Device Data [facility] ABSTRACTION Provider, Abstract NO ADDRESS ON FILE Social History Tobacco Use Types Packs/Day Years Used Date Smoking Tobacco: Never Smokeless Tobacco: Never Alcohol Use Standard Drinks/Week Comments Yes 0 (1 standard drink = 0.6 oz pur e alcohol) Sex and Gender Information Value Date Recorded Sex Assigned at Not on file Legal Sex Male 9:59 AM PROJECT MANAGER INDUSTRIAL Gender Identity Not on file Sexual Orientation Not on file documented as of this encounter Plan of Treatment Upcoming Encounters Date Type Department Care Team (Late st Contact Info) Description 04/08/2025 3:45 PM PROJECT MANAGER INDUSTRIAL Office Visit [facility] Oncology and Hematology - [place] [address] [place] [address] [address] [place] [address] [place] [address] [place] [address] [address] [place] [address] documented as of this encounter Visit Diagnoses Not on filedocumented in this encounter Care Teams Rn Nicu Relationship Specialty Start Date End Date Lee Graham MD PCP - General Internal Medicine 03/10/19 documented as of this encounter
[2024-10-22 09:33] LABS: Hematocrit 45.2 % (42.0-52.0); Hemoglobin 15.9 g/dL (14.0-18.0); Immature Granulocyte Percent A 0.4 % (0-0.5); Lymphocytes Absolute Auto 1.22 K/mm3 (0.9-3.2); Mean Corpuscular HGB Conc 35.2 g/dl (32-36); Mean Corpuscular Hemoglobin 32.6 pg (26-34); Mean Corpuscular Volume 92.6 fl (80-100); Nucleated Red Blood Cells Absolute Auto 0.000 K/mm3 (0.0-0.012); Nucleated Red Blood Cells Perc 0.0 % (0.0-0.2); Platelet Count Result 249 k/mm3 (150-375); Red Blood Count 4.88 M/mm3 (4.6-6.20); White Blood Count 4.9 K/mm3 (4.5-10.0)
[2024-10-22 10:42] LABS: Alanine Aminotransferase 26 U/L (6-50); Albumin Level 4.1 g/dL (3.5-5.1); Alkaline Phosphatase 85 U/L (38-126); Anion Gap 7 mmol/L (4-12); Aspartate Amino Transferase 31 U/L (17-59); Bilirubin,Total 0.8 mg/dL (0.2-1.3); Blood Urea Nitrogen 12 mg/dL (9-20); Calcium 9.2 mg/dL (8.4-10.2); Carbon Dioxide 26 mmol/L (22-30); Chloride 100 mmol/L (98-107); Cholesterol 176 mg/dL (0-200); Estimated Glomerular Filt Rate > 60; Glucose 168 mg/dL (65-110); HDL Direct 71 mg/dL; Potassium 4.4 mmol/L (3.4-5.0); Sodium 133 mmol/L (137-145); Total Protein 7.0 g/dL (6.3-8.2); Triglycerides 131 mg/dL (<150)
[2024-10-22 10:56] LABS: MALB Creatinine Ratio 47.5 mg/g (0-30)
[2024-10-22 11:11] LABS: Hemoglobin A1C 5.6 % (<5.7)
[2024-10-22 11:13] LABS: Thyroid Stimulating Hormone Reflex 0.744 uIU/mL (0.465-4.68)
== END 2024-10-22 09:17 | disposition home or self-care (01) ==
LOC: ANHLAB 09:17
PROVIDERS: PCP Internal Medicine; Visit Provider Internal Medicine
DX: E78.5 Hyperlipidemia, unspecified (principal); R73.9 Hyperglycemia, unspecified
CPT/HCPCS: 36415; 80053; 80061; 82043; 83036; 84443; 85025

== ENCOUNTER 2024-11-03 00:16 | Day surgery (SDC) | payer MEDICARE, SELFPAY ==
[2024-10-27 10:49] VITALS: BMI 28.4
--- OUTSIDE RECORDS SUMMARY | 2024-11-03 00:18 | XMS_ITS | Clinical Summary ---
Author Organization [facility] Meghan thurman Joselaurentflorecita Address [address] [place] [address] Care Team Providers Care Prospecting Driller Helper Name Role Phone Lee Graham MD [...] Encounters Date Type Department Care Team Description 10/29/2024 External Device Data [facility] ABSTRACTION Provider, Abstract 10/21/2024 External Device Data [facility] ABSTRACTION Provider, [...] on file Legal Sex Male 9:59 AM WASH BOX OPERATOR Gender Identity Not on file Sexual Orientation Not on file Last Filed Vital Signs Vital Sign Reading Time Taken Comments Blood Pressure 132/86 04/08/2024 3:04 PM WASH BOX OPERATOR Pulse 63 04/08/2024 3:01 PM WASH BOX OPERATOR Temperature 36.2 C (97.1 F) 04/08/2024 3:01 PM WASH BOX OPERATOR Respiratory Rate 15 04/08/2024 3:01 PM WASH BOX OPERATOR Oxygen Saturation 95% 04/08/2024 3:01 PM WASH BOX OPERATOR Inhaled Oxygen Concentration - - Weight 67.6 kg (149 lb) 04/08/2024 3:01 PM WASH BOX OPERATOR Height 152.4 cm (5') 11/22/2021 11:42 AM CDT Body Mass Index 29.1 11/22/2021 11:42 AM CDT Plan of Treatment Upcoming Encounters Date Type Department Care Team (Late st Contact Info) Description 04/08/2025 3:45 PM WASH BOX OPERATOR Office Visit [facility] Oncology and Hematology - [place] [address] [facility] [address] [place] [address] Brett Noguera MD [address] [facility] [address] [place] [address] Health Maintenance Due Date Last [...] Sig/CT Colonography Q 5 years Discontinued Insurance [facility] DUAL COMPLETE PPO DSNP [facility] [id number] [employer] MCR Care Teams Prospecting Driller Helper Relationship Specialty Start Date End Date Lee Graham MD PCP - General Internal Medicine 03/10/19
[2024-11-03 08:58] VITALS: BP 172/97; PULSE 62; RESP 16; TEMP 36.4; O2SAT 98; BMI 28.8
[2024-11-03] MEDS: LACTATED RINGERS 1,000 ML 150 ML IV CONT (09:09)
--- NOTE | 2024-11-03 09:13 | P.PNAN_ITS ---
Anes - Initial Pre Proc Eval Procedure: Operation Date: 11/03/24 10:15 Proposed Procedures p Esophagogastroduodenoscopy - Allan Jon MD Date/Time: 11/03/24 09:13 Surgeon: Allan Jon MD Pre Op Diagnosis: Gastro-esophageal reflux disease without esophagit Patient Data Age: 84 Gender: M Height: 1.52 m Weight: 67.1 kg Last Vital Signs Temp 36.4 C 11/03/24 08:58 Pulse 62 11/03/24 08:58 Resp 16 11/03/24 08:58 BP 172/97 H 11/03/24 08:58 Pulse Ox 98 11/03/24 08:58 O2 Del Method Room Air 11/03/24 08:58 Allergies Allergy/AdvReac Type Severity Reaction Status Date / Time No Known Allergies Allergy Verified 11/03/24 08:56 Home Medications ?Medication ?Instructions ?Recorded ?Confirmed ?Type levothyroxine 25 mcg tablet 25 mcg PO DAILY 10/25/19 0 11/03/24 History pravastatin 40 mg tablet 40 mg PO HS 08/13/20 5 History trazodone 100 mg tablet 100 mg PO HS 08/13/20 History cyanocobalamin (vitamin B-12) 2,000 mcg PO DAILY 12/2611/03/24 History 2,000 mcg tablet,extended release Patient hx anesthesia problems: none Family hx anesthesia problems: none Results Review: All pre-operative results and documents have been reviewed as part of the pre- operative evaluation. [facility] Past Medical History Medical History Colon polyp Hypothyroid Hypertension Hyperlipidemia History of prostate cancer Surgical History Surgical History History of tonsillectomy Social History Social History Smoking status: Never smoker Alcohol intake: current Drinks per week: 6 Alcohol use details: rarely Substance use: never Substance use type: does not use Living arrangements: alone Spiritual care concerns: No Anes - Eval Final PreProcedure Day of Procedure 11/03/24 09:13 Patient weight: overweight Heart: regular rate and rhythm Lungs: clear to auscultation Airway: Mallampati scale class II Neurological: alert and oriented Last oral intake: >/= 8 hours ASA classification: III Emergent: no Anesthetic plan: proceed Anesthesia type and monitoring: general GIVS and standard monitoring Results Review: All pre-operative results and documents have been reviewed as part of the pre- operative evaluation. Informed Consent: The patient's anesthetic plan and its attendant risks and benefits were discussed with the patient/family/POA. Questions were solicited and answers provided to the satisfaction of the patient/family/POA.
--- NOTE | 2024-11-03 09:50 | PM.HPGS ---
History of Present Illness History of Present Illness Consent: Risks, benefits, and alternatives have been discussed and questions answered. Patient agrees to proceed with procedure. Chief complaint: Gastro-esophageal reflux disease without esophagit Narrative: Kiran Martines Jr. is a 84 year old male here for egd because gerd Review of Systems Review of Systems: All systems reviewed & are unremarkable except as noted in HPI and below PMFSH Past Medical History Medical History (Updated 11/03/24 @ 09:50 by Allan Jon MD) GERD (gastroesophageal reflux disease) Colon polyp Hypothyroid Hypertension Hyperlipidemia History of prostate cancer Surgical History Surgical History History of tonsillectomy Social History Social History Smoking status: Never smoker Alcohol intake: current Drinks per week: 6 Alcohol use details: rarely Substance use: never Substance use type: does not use Living arrangements: alone Spiritual care concerns: No Meds Home Medications and Allergies Home Medications ?Medication ?Instructions ?Recorded ?Confirmed ?Type levothyroxine 25 mcg tablet 25 mcg PO DAILY 10/25/19 11/03/24 History pravastatin 40 mg tablet 40 mg PO HS 08/13/20 11/03/24 History trazodone 100 mg tablet 100 mg PO HS 08/13/20 11/03/24 History cyanocobalamin (vitamin B-12) 2,000 mcg PO DAILY 12/27/23 11/03/24 History 2,000 mcg tablet,extended release Allergies Allergy/AdvReac Type Severity Reaction Status Date / Time No Known Allergies Allergy Verified 11/03/24 08:56 Vital Signs Vital Signs - 24 hr 11/03/24 08:58 Temperature 97.6 F Pulse Rate 62 Respiratory Rate 16 Blood Pressure 172/97 H Pulse Oximetry 98 Oxygen Delivery Room Air Exam Const: General: comfortable and no acute distress HENMT: Face/Nose/Sinus: Normal nares present Eyes: General: appearance normal, both eyes and all related structures Neck: Neck: no JVD Resp: Auscultation: clear to auscultation bilaterally Cardio: Rate: regular rate Rhythm: regular rhythm GI: Inspection: non-distended GI Palp: Yes Soft to palpation Skin: General skin exam: normal color Neuro: Speech: normal speech Extrem: General: normal to inspection Psych: Mental Status: mental status grossly normal Assessment and Plan Assessment and plan (1) GERD (gastroesophageal reflux disease): Code(s): K21.9 - Gastro-esophageal reflux disease without esophagitis Status: Acute Assessment and Plan: egd with bx
--- NOTE | 2024-11-03 09:56 | S_PTH ---
PATIENT: Kiran Martines Jr. LOC: [facility] [place]#:[id number] AGE/SX: 84/M ROOM: RE11/03/[address]: Allan Jon MD : 1940 BED: DIS: 11/03/2024 SPEC #: [id number] RECD: 11/03/24 10:37 STATUS: EMILY REJeanette #: [id number] SPRING: 11/03/24 09:[address]: Allan Jon DEPT: [facility] Surgical RECD BY: Sarahi Dick ENTERED: 11/03/24 10:38 SP TYPE: Surgical OTHR DR: Lee GrahamMD Tissues: A - Gastric Biopsy Procedures: Hematoxylin and Eosin Stain Gross and Microscopic Level 4 H.Pylori
[2024-11-03 10:03] VITALS: BP 130/86; PULSE 62; RESP 25; O2SAT 96
[2024-11-03 10:13] VITALS: BP 152/103; PULSE 60; RESP 30; O2SAT 98
[2024-11-03 10:23] VITALS: BP 153/93; PULSE 55; RESP 15; O2SAT 98
== END 2024-11-03 10:25 | disposition home or self-care (01) ==
PROVIDERS: PCP Internal Medicine; Referring Provider Internal Medicine; Visit Provider Internal Medicine Gastroenterology
PROC: 0DJ08ZZ Inspection of Upper Intestinal Tract, Via Natural or Artificial Opening Endoscopic (ICD-10-PCS; CPT 43239; principal; 2024-11-03 10:15)
DX: K21.9 Gastro-esophageal reflux disease without esophagitis (principal); K29.50 Unspecified chronic gastritis without bleeding; B96.81 Helicobacter pylori [H. pylori] as the cause of diseases classified elsewhere; K44.9 Diaphragmatic hernia without obstruction or gangrene; K31.89 Other diseases of stomach and duodenum; E03.9 Hypothyroidism, unspecified; I10 Essential (primary) hypertension; E78.5 Hyperlipidemia, unspecified; Z98.890 Other specified postprocedural states; Z86.0100 Personal history of colon polyps, unspecified; Z85.46 Personal history of malignant neoplasm of prostate
CPT/HCPCS: 43239; 88305; 88342; J2003; J2704; J7120